=== PATIENT | female | born 1945 | race Caucasian/White ===

== ENCOUNTER 2016-06-27 08:50 | Outpatient (RCR) | payer MEDICARE, OTHER ==
--- OUTSIDE RECORDS SUMMARY | 2016-04-04 08:40 | XMS REPORT | Continuity of Care Document ---
Author Author [facility] Organization [facility] Address Unknown Phone Unavailable Care Team Providers Care Html Web Developer Name Role Phone HAYDEN MAQRUEZ MD PCP Insurance Providers Payer Name Policy Number Subscriber Name Relationship [employer] [id number] Ant Mcbride 18 Self / Same As Patient [facility] [id number] Ruchi Mcbride Thelma 18 Self / Same As Patient Advance Directives Directive Response Recorded Date/Time Advance Directives No 12/26/15 12:54pm Health Care Power of Elevators Inspector No 12/26/15 12:54pm Organ Donor Yes 12/26/15 12:54pm Resuscitation Status Full Code 12/26/15 12:54pm Problems No problem information available. Medications Current Home Medications Medication Dose Units Route Directions Days/Qty Instructions Start Date Bisoprolol Fumarate/Hctz 1 Each 1 Each Oral Daily 12/22/15 Calcium Carbonate/Vitamin D3 1 Each 1 Each Oral Twice A Day 12/22/15 Cholecalciferol (Vitamin D3) 2,000 Unit 2,000 Unit Oral Daily Lutein 20 Mg 20 Mg Oral Daily 12/22/15 Aspirin 81 Mg 81 Mg Oral Daily 12/22/15 Hydrocodone/Acetaminophen 1 Each 1-2 Each Oral Every 4HRS as needed for Pain 12/23/15 Social History Social History Problem Response Recorded Date/Time Alcohol Use Denies Use 12/26/2015 12:56pm Recreational Drug Use No 12/26/2015 12:56pm Recent Foreign Travel No 12/26/2015 12:56pm Recent Infectious Disease Exposure No 12/26/2015 12:56pm Hospitalization with Isolation Denies 12/26/2015 12:56pm Smoking Status Never a Smoker 12/26/2015 12:54pm Query Response Start Date Stop Date Smoking Status Never a Smoker Hospital Discharge Instructions No hospital discharge instructions. Plan of Care Discharge Date 12/26/15 4:04pm Prescriptions See Medication Section Functional Status No functional status results. Allergies, Adverse Reactions, Alerts No known allergies. Immunizations Name Given Type Date of Pneumonia Vaccine 12/25/12 Historical Vital Signs Acute Vital Signs Vital Response Date/Time Temperature (Fahrenheit) 97.8 degrees F (97.6 - 99.5) 12/23/2015 6:25pm Temperature (Calculated Celsius) 36.90073 degrees C (36.4 - 37.5) 12/23/2015 6:25pm Temperature Source Temporal 12/23/2015 6:25pm Pulse Rate (adult) 50 bpm (60 - 90) 12/23/2015 6:25pm Respiratory Rate 16 bpm (12 - 24) 12/23/2015 6:25pm O2 Sat by Pulse Oximetry 100 % (88 - 100) 12/23/2015 6:25pm Blood Pressure 124/68 mm Hg 12/23/2015 6:25pm Blood Pressure Mean 86 mm Hg 12/23/2015 6:25pm Pain Pain Intensity 0 12/23/2015 6:25pm Height (Feet) 5 feet 12/23/2015 10:05am Height (Inches) 5.00 inches 12/23/2015 10:05am Height (Calculated Centimeters) 165.462710 cm 12/23/2015 10:05am Weight (Pounds) 150 pounds 12/23/2015 10:05am Weight (Ounces) 0.0 oz 12/23/2015 10:05am Weight (Calculated Grams) 68560.856 gm 12/23/2015 10:05am Weight (Calculated Kilograms) 68.783753 kilograms 12/23/2015 10:05am Calculated BMI 25.0 12/23/2015 10:05am Results Pending Laboratory Results Test Name Collection Date/Time Procedures Procedure Status Date Provider(s) Tracing only of electrocardiogram Completed 12/23/15 HAYDEN MARQUEZ MD Encounters Encounter Location Arrival/Admit Date Discharge/Depart Date Attending Provider Departed Clinic [facility] 12/26/15 12:42pm 12/26/15 4: 04pm ALEX CALDERON MD Departed [facility] 12/23/15 9:43am 6:35pm HAYDEN MARQUEZ MD Departed Clinic [facility] 12/22/15 2:27pm 12/22/15 3: 39pm HAYDEN MARQUEZ MD Registered Clinic [facility] 12/22/15 12:03pm HAYDEN MARQUEZ MD
[2016-04-04 08:59] LABS: BASOPHILS # (AUTO) 0.1 10^3/uL (0.0-0.1); BASOPHILS % (AUTO) 1 % (0-10); EOSINOPHILS # (AUTO) 0.1 10^3/uL (0.0-0.3); EOSINOPHILS % (AUTO) 2 % (0-10); LYMPHOCYTES # (AUTO) 2.1 X 10^3 (1.0-4.0); LYMPHOCYTES % (AUTO) 35 % (12-44); MEAN CORPUSCULAR HEMOGLOBIN 25 PG (25-34); MEAN CORPUSCULAR HGB CONC 31 G/DL (32-36); MEAN CORPUSCULAR VOLUME 82 FL (80-99); MEAN PLATELET VOLUME 9.9 FL (7.4-10.4); MONOCYTES # (AUTO) 0.8 X 10^3 (0.0-1.0); MONOCYTES % (AUTO) 13 % (0-12); NEUTROPHILS % (AUTO) 50 % (42-75); PLATELET COUNT 286 10^3/uL (130-400); RED BLOOD COUNT 4.37 10^6/uL (4.35-5.85); RED CELL DISTRIBUTION WIDTH 28.7 % (10.0-14.5)
[2016-04-04 09:20] LABS: ANION GAP 13 MMOL/L (5-14); BLOOD UREA NITROGEN 9 MG/DL (7-18); BUN/CREATININE RATIO 12; CALCIUM 9.4 MG/DL (8.5-10.1); CARBON DIOXIDE 21 MMOL/L (21-32); CHLORIDE 108 MMOL/L (98-107); CREATININE SERUM 0.75 MG/DL (0.60-1.30); GFR ESTIMATED > 60; GLUCOSE 103 MG/DL (70-105); POTASSIUM 3.8 MMOL/L (3.6-5.0); SODIUM 142 MMOL/L (135-145)
[2016-04-11 11:08] LABS: BASOPHILS # (AUTO) 0.1 10^3/uL (0.0-0.1); BASOPHILS % (AUTO) 1 % (0-10); EOSINOPHILS # (AUTO) 0.1 10^3/uL (0.0-0.3); EOSINOPHILS % (AUTO) 1 % (0-10); LYMPHOCYTES # (AUTO) 2.7 X 10^3 (1.0-4.0); LYMPHOCYTES % (AUTO) 49 % (12-44); MEAN CORPUSCULAR HEMOGLOBIN 26 PG (25-34); MEAN CORPUSCULAR HGB CONC 32 G/DL (32-36); MEAN CORPUSCULAR VOLUME 83 FL (80-99); MEAN PLATELET VOLUME 11.3 FL (7.4-10.4); MONOCYTES # (AUTO) 0.4 X 10^3 (0.0-1.0); MONOCYTES % (AUTO) 7 % (0-12); NEUTROPHILS # (AUTO) 2.3 X 10^3 (1.8-7.8); NEUTROPHILS % (AUTO) 42 % (42-75); PLATELET COUNT 183 10^3/uL (130-400); RED BLOOD COUNT 4.46 10^6/uL (4.35-5.85); RED CELL DISTRIBUTION WIDTH 27.3 % (10.0-14.5); WHITE BLOOD COUNT 5.4 10^3/uL (4.3-11.0)
[2016-04-11 11:29] LABS: ANION GAP 11 MMOL/L (5-14); BLOOD UREA NITROGEN 14 MG/DL (7-18); BUN/CREATININE RATIO 17; CALCIUM 9.5 MG/DL (8.5-10.1); CARBON DIOXIDE 19 MMOL/L (21-32); CHLORIDE 110 MMOL/L (98-107); CREATININE SERUM 0.82 MG/DL (0.60-1.30); GFR ESTIMATED > 60; GLUCOSE 99 MG/DL (70-105); MAGNESIUM 2.3 MG/DL (1.8-2.4); POTASSIUM 4.2 MMOL/L (3.6-5.0); SODIUM 140 MMOL/L (135-145)
[2016-04-18 09:25] LABS: BASOPHILS % (AUTO) 1 % (0-10); EOSINOPHILS # (AUTO) 0.1 10^3/uL (0.0-0.3); EOSINOPHILS % (AUTO) 3 % (0-10); LYMPHOCYTES # (AUTO) 1.7 X 10^3 (1.0-4.0); LYMPHOCYTES % (AUTO) 43 % (12-44); MEAN CORPUSCULAR HEMOGLOBIN 27 PG (25-34); MEAN CORPUSCULAR HGB CONC 32 G/DL (32-36); MEAN CORPUSCULAR VOLUME 84 FL (80-99); MEAN PLATELET VOLUME 10.6 FL (7.4-10.4); MONOCYTES # (AUTO) 0.6 X 10^3 (0.0-1.0); MONOCYTES % (AUTO) 16 % (0-12); NEUTROPHILS # (AUTO) 1.4 X 10^3 (1.8-7.8); NEUTROPHILS % (AUTO) 37 % (42-75); PLATELET COUNT 104 10^3/uL (130-400); RED BLOOD COUNT 4.36 10^6/uL (4.35-5.85); RED CELL DISTRIBUTION WIDTH 28.3 % (10.0-14.5); WHITE BLOOD COUNT 3.8 10^3/uL (4.3-11.0)
[2016-04-18 09:50] LABS: ALANINE AMINOTRANSFERASE 15 U/L (0-55); ALBUMIN 3.6 G/DL (3.2-4.5); ANION GAP 5 MMOL/L (5-14); ASPARTATE AMINO TRANSFERASE 24 U/L (5-34); BILIRUBIN,TOTAL 0.3 MG/DL (0.1-1.0); BLOOD UREA NITROGEN 10 MG/DL (7-18); BUN/CREATININE RATIO 13; CALCIUM 9.1 MG/DL (8.5-10.1); CARBON DIOXIDE 26 MMOL/L (21-32); CHLORIDE 110 MMOL/L (98-107); CREATININE SERUM 0.75 MG/DL (0.60-1.30); GFR ESTIMATED > 60; GLUCOSE 109 MG/DL (70-105); MAGNESIUM 2.2 MG/DL (1.8-2.4); SODIUM 141 MMOL/L (135-145); TOTAL PROTEIN 6.6 G/DL (6.4-8.2)
[2016-04-25 10:41] LABS: BASOPHILS % (AUTO) 0 % (0-10); EOSINOPHILS % (AUTO) 0 % (0-10); LYMPHOCYTES # (AUTO) 2.5 X 10^3 (1.0-4.0); LYMPHOCYTES % (AUTO) 26 % (12-44); MEAN CORPUSCULAR HEMOGLOBIN 27 PG (25-34); MEAN CORPUSCULAR HGB CONC 32 G/DL (32-36); MEAN CORPUSCULAR VOLUME 85 FL (80-99); MEAN PLATELET VOLUME 10.5 FL (7.4-10.4); MONOCYTES # (AUTO) 0.9 X 10^3 (0.0-1.0); MONOCYTES % (AUTO) 9 % (0-12); NEUTROPHILS # (AUTO) 6.1 X 10^3 (1.8-7.8); NEUTROPHILS % (AUTO) 64 % (42-75); RED BLOOD COUNT 4.76 10^6/uL (4.35-5.85); RED CELL DISTRIBUTION WIDTH 26.9 % (10.0-14.5); WHITE BLOOD COUNT 9.5 10^3/uL (4.3-11.0)
[2016-04-25 10:47] LABS: PLATELET COUNT 85 10^3/uL (130-400)
[2016-04-25 11:18] LABS: ANION GAP 9 MMOL/L (5-14); BLOOD UREA NITROGEN 11 MG/DL (7-18); BUN/CREATININE RATIO 14; CALCIUM 9.9 MG/DL (8.5-10.1); CARBON DIOXIDE 24 MMOL/L (21-32); CHLORIDE 104 MMOL/L (98-107); CREATININE SERUM 0.78 MG/DL (0.60-1.30); GFR ESTIMATED > 60; GLUCOSE 104 MG/DL (70-105); MAGNESIUM 1.9 MG/DL (1.8-2.4); POTASSIUM 4.5 MMOL/L (3.6-5.0); SODIUM 137 MMOL/L (135-145)
[2016-05-02 08:56] LABS: BASOPHILS # (AUTO) 0.1 10^3/uL (0.0-0.1); BASOPHILS % (AUTO) 2 % (0-10); EOSINOPHILS % (AUTO) 2 % (0-10); LYMPHOCYTES # (AUTO) 1.4 X 10^3 (1.0-4.0); LYMPHOCYTES % (AUTO) 60 % (12-44); MEAN CORPUSCULAR HEMOGLOBIN 28 PG (25-34); MEAN CORPUSCULAR HGB CONC 33 G/DL (32-36); MEAN CORPUSCULAR VOLUME 87 FL (80-99); MEAN PLATELET VOLUME 9.5 FL (7.4-10.4); MONOCYTES # (AUTO) 0.5 X 10^3 (0.0-1.0); MONOCYTES % (AUTO) 20 % (0-12); NEUTROPHILS # (AUTO) 0.4 X 10^3 (1.8-7.8); NEUTROPHILS % (AUTO) 17 % (42-75); PLATELET COUNT 104 10^3/uL (130-400); RED BLOOD COUNT 4.16 10^6/uL (4.35-5.85); RED CELL DISTRIBUTION WIDTH 24.8 % (10.0-14.5); WHITE BLOOD COUNT 2.4 10^3/uL (4.3-11.0)
[2016-05-02 09:24] LABS: ALANINE AMINOTRANSFERASE 16 U/L (0-55); ALBUMIN 3.4 G/DL (3.2-4.5); ANION GAP 7 MMOL/L (5-14); ASPARTATE AMINO TRANSFERASE 20 U/L (5-34); BILIRUBIN,TOTAL 0.2 MG/DL (0.1-1.0); BLOOD UREA NITROGEN 8 MG/DL (7-18); BUN/CREATININE RATIO 11; CARBON DIOXIDE 26 MMOL/L (21-32); CHLORIDE 110 MMOL/L (98-107); CREATININE SERUM 0.76 MG/DL (0.60-1.30); GFR ESTIMATED > 60; GLUCOSE 106 MG/DL (70-105); MAGNESIUM 1.8 MG/DL (1.8-2.4); POTASSIUM 3.5 MMOL/L (3.6-5.0); SODIUM 143 MMOL/L (135-145); TOTAL PROTEIN 6.6 G/DL (6.4-8.2)
[2016-05-08 13:01] LABS: RED BLOOD COUNT 4.28 10^6/uL (4.35-5.85); WHITE BLOOD COUNT 4.2 10^3/uL (4.3-11.0)
[2016-05-08 13:02] LABS: BASOPHILS % (AUTO) 1 % (0-10); EOSINOPHILS # (AUTO) 0.1 10^3/uL (0.0-0.3); EOSINOPHILS % (AUTO) 2 % (0-10); LYMPHOCYTES # (AUTO) 2.3 X 10^3 (1.0-4.0); LYMPHOCYTES % (AUTO) 55 % (12-44); MEAN CORPUSCULAR HEMOGLOBIN 29 PG (25-34); MEAN CORPUSCULAR HGB CONC 33 G/DL (32-36); MEAN CORPUSCULAR VOLUME 89 FL (80-99); MONOCYTES # (AUTO) 0.6 X 10^3 (0.0-1.0); MONOCYTES % (AUTO) 14 % (0-12); NEUTROPHILS # (AUTO) 1.2 X 10^3 (1.8-7.8); NEUTROPHILS % (AUTO) 29 % (42-75); PLATELET COUNT 139 10^3/uL (130-400); RED CELL DISTRIBUTION WIDTH 25.4 % (10.0-14.5)
[2016-05-08 13:29] LABS: ANION GAP 10 MMOL/L (5-14); BLOOD UREA NITROGEN 9 MG/DL (7-18); BUN/CREATININE RATIO 11; CALCIUM 9.7 MG/DL (8.5-10.1); CARBON DIOXIDE 25 MMOL/L (21-32); CHLORIDE 107 MMOL/L (98-107); CREATININE SERUM 0.81 MG/DL (0.60-1.30); GFR ESTIMATED > 60; GLUCOSE 95 MG/DL (70-105); MAGNESIUM 2.2 MG/DL (1.8-2.4); POTASSIUM 3.8 MMOL/L (3.6-5.0); SODIUM 142 MMOL/L (135-145)
[2016-05-16 09:25] LABS: BASOPHILS # (AUTO) 0.1 10^3/uL (0.0-0.1); BASOPHILS % (AUTO) 1 % (0-10); EOSINOPHILS # (AUTO) 0.1 10^3/uL (0.0-0.3); EOSINOPHILS % (AUTO) 1 % (0-10); LYMPHOCYTES # (AUTO) 1.8 X 10^3 (1.0-4.0); LYMPHOCYTES % (AUTO) 42 % (12-44); MEAN CORPUSCULAR HEMOGLOBIN 30 PG (25-34); MEAN CORPUSCULAR HGB CONC 33 G/DL (32-36); MEAN CORPUSCULAR VOLUME 91 FL (80-99); MEAN PLATELET VOLUME 10.6 FL (7.4-10.4); MONOCYTES # (AUTO) 0.7 X 10^3 (0.0-1.0); MONOCYTES % (AUTO) 16 % (0-12); NEUTROPHILS # (AUTO) 1.7 X 10^3 (1.8-7.8); NEUTROPHILS % (AUTO) 40 % (42-75); PLATELET COUNT 123 10^3/uL (130-400); RED CELL DISTRIBUTION WIDTH 24.9 % (10.0-14.5); WHITE BLOOD COUNT 4.2 10^3/uL (4.3-11.0)
[2016-05-16 09:52] LABS: ALANINE AMINOTRANSFERASE 14 U/L (0-55); ALBUMIN 3.5 G/DL (3.2-4.5); ANION GAP 8 MMOL/L (5-14); ASPARTATE AMINO TRANSFERASE 23 U/L (5-34); BILIRUBIN,TOTAL 0.4 MG/DL (0.1-1.0); BLOOD UREA NITROGEN 11 MG/DL (7-18); BUN/CREATININE RATIO 15; CALCIUM 9.3 MG/DL (8.5-10.1); CARBON DIOXIDE 23 MMOL/L (21-32); CHLORIDE 110 MMOL/L (98-107); CREATININE SERUM 0.74 MG/DL (0.60-1.30); GFR ESTIMATED > 60; GLUCOSE 93 MG/DL (70-105); MAGNESIUM 2.1 MG/DL (1.8-2.4); POTASSIUM 4.2 MMOL/L (3.6-5.0); SODIUM 141 MMOL/L (135-145); TOTAL PROTEIN 6.3 G/DL (6.4-8.2)
[2016-05-23 11:48] LABS: BASOPHILS % (AUTO) 1 % (0-10); EOSINOPHILS # (AUTO) 0.1 10^3/uL (0.0-0.3); EOSINOPHILS % (AUTO) 2 % (0-10); LYMPHOCYTES # (AUTO) 2.5 X 10^3 (1.0-4.0); LYMPHOCYTES % (AUTO) 48 % (12-44); MEAN CORPUSCULAR HEMOGLOBIN 29 PG (25-34); MEAN CORPUSCULAR HGB CONC 32 G/DL (32-36); MEAN CORPUSCULAR VOLUME 91 FL (80-99); MEAN PLATELET VOLUME 10.8 FL (7.4-10.4); MONOCYTES # (AUTO) 0.5 X 10^3 (0.0-1.0); MONOCYTES % (AUTO) 10 % (0-12); NEUTROPHILS # (AUTO) 2.1 X 10^3 (1.8-7.8); NEUTROPHILS % (AUTO) 40 % (42-75); PLATELET COUNT 125 10^3/uL (130-400); RED BLOOD COUNT 4.37 10^6/uL (4.35-5.85); RED CELL DISTRIBUTION WIDTH 22.7 % (10.0-14.5); WHITE BLOOD COUNT 5.2 10^3/uL (4.3-11.0)
[2016-05-23 12:15] LABS: ANION GAP 8 MMOL/L (5-14); BLOOD UREA NITROGEN 13 MG/DL (7-18); BUN/CREATININE RATIO 16; CALCIUM 10.4 MG/DL (8.5-10.1); CARBON DIOXIDE 23 MMOL/L (21-32); CHLORIDE 107 MMOL/L (98-107); GFR ESTIMATED > 60; GLUCOSE 85 MG/DL (70-105); MAGNESIUM 2.1 MG/DL (1.8-2.4); POTASSIUM 4.6 MMOL/L (3.6-5.0); SODIUM 138 MMOL/L (135-145)
[2016-05-30 10:28] LABS: BASOPHILS # (AUTO) 0.1 10^3/uL (0.0-0.1); BASOPHILS % (AUTO) 1 % (0-10); EOSINOPHILS # (AUTO) 0.1 10^3/uL (0.0-0.3); EOSINOPHILS % (AUTO) 3 % (0-10); LYMPHOCYTES # (AUTO) 1.6 X 10^3 (1.0-4.0); LYMPHOCYTES % (AUTO) 46 % (12-44); MEAN CORPUSCULAR HEMOGLOBIN 30 PG (25-34); MEAN CORPUSCULAR HGB CONC 32 G/DL (32-36); MEAN CORPUSCULAR VOLUME 92 FL (80-99); MEAN PLATELET VOLUME 10.5 FL (7.4-10.4); MONOCYTES # (AUTO) 0.7 X 10^3 (0.0-1.0); MONOCYTES % (AUTO) 20 % (0-12); NEUTROPHILS # (AUTO) 1.1 X 10^3 (1.8-7.8); NEUTROPHILS % (AUTO) 30 % (42-75); PLATELET COUNT 112 10^3/uL (130-400); RED BLOOD COUNT 4.23 10^6/uL (4.35-5.85); RED CELL DISTRIBUTION WIDTH 21.9 % (10.0-14.5); WHITE BLOOD COUNT 3.5 10^3/uL (4.3-11.0)
[2016-05-30 10:57] LABS: ALANINE AMINOTRANSFERASE 12 U/L (0-55); ALBUMIN 3.7 G/DL (3.2-4.5); ANION GAP 8 MMOL/L (5-14); ASPARTATE AMINO TRANSFERASE 25 U/L (5-34); BILIRUBIN,TOTAL 0.3 MG/DL (0.1-1.0); BLOOD UREA NITROGEN 10 MG/DL (7-18); BUN/CREATININE RATIO 13; CALCIUM 9.3 MG/DL (8.5-10.1); CARBON DIOXIDE 22 MMOL/L (21-32); CHLORIDE 112 MMOL/L (98-107); CREATININE SERUM 0.78 MG/DL (0.60-1.30); GFR ESTIMATED > 60; GLUCOSE 97 MG/DL (70-105); MAGNESIUM 2.2 MG/DL (1.8-2.4); POTASSIUM 4.1 MMOL/L (3.6-5.0); SODIUM 142 MMOL/L (135-145); TOTAL PROTEIN 6.5 G/DL (6.4-8.2)
[2016-06-06 09:00] LABS: BASOPHILS # (AUTO) 0.1 10^3/uL (0.0-0.1); BASOPHILS % (AUTO) 1 % (0-10); EOSINOPHILS # (AUTO) 0.1 10^3/uL (0.0-0.3); EOSINOPHILS % (AUTO) 2 % (0-10); LYMPHOCYTES # (AUTO) 1.8 X 10^3 (1.0-4.0); LYMPHOCYTES % (AUTO) 41 % (12-44); MEAN CORPUSCULAR HEMOGLOBIN 31 PG (25-34); MEAN CORPUSCULAR HGB CONC 33 G/DL (32-36); MEAN CORPUSCULAR VOLUME 94 FL (80-99); MEAN PLATELET VOLUME 11.5 FL (7.4-10.4); MONOCYTES # (AUTO) 0.8 X 10^3 (0.0-1.0); MONOCYTES % (AUTO) 19 % (0-12); NEUTROPHILS # (AUTO) 1.6 X 10^3 (1.8-7.8); NEUTROPHILS % (AUTO) 37 % (42-75); PLATELET COUNT 151 10^3/uL (130-400); RED BLOOD COUNT 4.29 10^6/uL (4.35-5.85); RED CELL DISTRIBUTION WIDTH 20.8 % (10.0-14.5); WHITE BLOOD COUNT 4.3 10^3/uL (4.3-11.0)
[2016-06-06 09:19] LABS: ANION GAP 6 MMOL/L (5-14); BLOOD UREA NITROGEN 12 MG/DL (7-18); BUN/CREATININE RATIO 16; CALCIUM 9.4 MG/DL (8.5-10.1); CARBON DIOXIDE 24 MMOL/L (21-32); CHLORIDE 111 MMOL/L (98-107); CREATININE SERUM 0.74 MG/DL (0.60-1.30); GFR ESTIMATED > 60; GLUCOSE 76 MG/DL (70-105); MAGNESIUM 2.1 MG/DL (1.8-2.4); SODIUM 141 MMOL/L (135-145)
[2016-06-13 11:43] LABS: BASOPHILS % (AUTO) 1 % (0-10); EOSINOPHILS # (AUTO) 0.1 10^3/uL (0.0-0.3); EOSINOPHILS % (AUTO) 2 % (0-10); LYMPHOCYTES % (AUTO) 45 % (12-44); MEAN CORPUSCULAR HEMOGLOBIN 31 PG (25-34); MEAN CORPUSCULAR HGB CONC 33 G/DL (32-36); MEAN CORPUSCULAR VOLUME 96 FL (80-99); MEAN PLATELET VOLUME 11.7 FL (7.4-10.4); MONOCYTES # (AUTO) 0.5 X 10^3 (0.0-1.0); MONOCYTES % (AUTO) 12 % (0-12); NEUTROPHILS # (AUTO) 1.8 X 10^3 (1.8-7.8); NEUTROPHILS % (AUTO) 40 % (42-75); PLATELET COUNT 106 10^3/uL (130-400); RED BLOOD COUNT 4.31 10^6/uL (4.35-5.85); RED CELL DISTRIBUTION WIDTH 18.7 % (10.0-14.5); WHITE BLOOD COUNT 4.4 10^3/uL (4.3-11.0)
[2016-06-13 12:13] LABS: ANION GAP 8 MMOL/L (5-14); BLOOD UREA NITROGEN 11 MG/DL (7-18); BUN/CREATININE RATIO 14; CALCIUM 9.2 MG/DL (8.5-10.1); CARBON DIOXIDE 24 MMOL/L (21-32); CHLORIDE 107 MMOL/L (98-107); CREATININE SERUM 0.76 MG/DL (0.60-1.30); GFR ESTIMATED > 60; GLUCOSE 82 MG/DL (70-105); MAGNESIUM 2.1 MG/DL (1.8-2.4); POTASSIUM 4.1 MMOL/L (3.6-5.0); SODIUM 139 MMOL/L (135-145)
[2016-06-19 10:11] LABS: BASOPHILS # (AUTO) 0.1 10^3/uL (0.0-0.1); BASOPHILS % (AUTO) 1 % (0-10); EOSINOPHILS # (AUTO) 0.1 10^3/uL (0.0-0.3); EOSINOPHILS % (AUTO) 1 % (0-10); LYMPHOCYTES # (AUTO) 2.1 X 10^3 (1.0-4.0); LYMPHOCYTES % (AUTO) 40 % (12-44); MEAN CORPUSCULAR HEMOGLOBIN 32 PG (25-34); MEAN CORPUSCULAR HGB CONC 33 G/DL (32-36); MEAN CORPUSCULAR VOLUME 95 FL (80-99); MONOCYTES # (AUTO) 0.8 X 10^3 (0.0-1.0); MONOCYTES % (AUTO) 16 % (0-12); NEUTROPHILS # (AUTO) 2.1 X 10^3 (1.8-7.8); NEUTROPHILS % (AUTO) 41 % (42-75); PLATELET COUNT 94 10^3/uL (130-400); RED BLOOD COUNT 4.26 10^6/uL (4.35-5.85); RED CELL DISTRIBUTION WIDTH 18.3 % (10.0-14.5); WHITE BLOOD COUNT 5.1 10^3/uL (4.3-11.0)
[2016-06-19 10:36] LABS: ALANINE AMINOTRANSFERASE 16 U/L (0-55); ALBUMIN 3.9 G/DL (3.2-4.5); ANION GAP 7 MMOL/L (5-14); ASPARTATE AMINO TRANSFERASE 31 U/L (5-34); BILIRUBIN,TOTAL 0.5 MG/DL (0.1-1.0); BLOOD UREA NITROGEN 13 MG/DL (7-18); BUN/CREATININE RATIO 15; CALCIUM 9.3 MG/DL (8.5-10.1); CARBON DIOXIDE 23 MMOL/L (21-32); CHLORIDE 111 MMOL/L (98-107); CREATININE SERUM 0.85 MG/DL (0.60-1.30); GFR ESTIMATED > 60; GLUCOSE 102 MG/DL (70-105); MAGNESIUM 2.4 MG/DL (1.8-2.4); POTASSIUM 4.3 MMOL/L (3.6-5.0); SODIUM 141 MMOL/L (135-145)
[~2016-06-27] VITALS: Ht 165.1 cm; Wt 64.4 kg
[~2016-06-27 08:50] MED LIST: APIX5TAB PO; ASPI-586 PO; BISO1TAB3 PO; CALC-902 PO; CHOL200025 PO; D5W 500 ML IV (CANCER CTR) 500 ML IV SCH; D5W IV SCH; DILT240C90 PO; FAMOTIDINE 20MG/2ML IV (CANCER CTR) IV SCH; FERR-74 PO; FERRIC CARBOXYMALTOSE (CANCER) 750 MG in NS (IVPB) CANCER CENTER 250 ML IV SCH; FLUOROURACIL 600 MG in SYRINGE-IVPB 1 SYRINGE IV SCH; FLUOROURACIL IV SCH; FOSAPREPITANT 150 MG/NS 150 MG IVPB (CANCER CTR) IV PRN; HYDR-3812 PO; LEUCOVORIN CALCIUM 600 MG in D5W 250 ML IVPB (CANCER CTR) 250 ML IV SCH; LEUCOVORIN CALCIUM IV SCH; LORazepam 0.5 MG (ATIVAN) TABLET CANCER CTR PO PRN; LUTE20TA PO; METO-333 PO; METO50TA2 PO; ONDA8TAB6 PO; ONDANSETRON 16 MG, DEXAMETHASONE 10 MG/NS 50 ML IVPB IV SCH; ONDN4T PO; OXALIPLATIN 100 MG in D5W 250 ML IVPB (CANCER CTR) 250 ML IV SCH; OXALIPLATIN 100 MG, OXALIPLATIN (GENERIC) 20 MG in D5W 250 ML IVPB (CANCER CTR) 250 ML IV SCH; OXALIPLATIN 100 MG, OXALIPLATIN (GENERIC) 30 MG in D5W 250 ML IVPB (CANCER CTR) 250 ML IV SCH; OXYC-197 PO; TRAM50TA2 PO; [UNRECOGNIZED DRUG - OTHER] IV SCH; diphenhydrAMINE 25 MG TAB (BENADRYL) CANCER CENTER PO SCH
[2016-06-27 09:25] LABS: BASOPHILS % (AUTO) 1 % (0-10); EOSINOPHILS # (AUTO) 0.1 10^3/uL (0.0-0.3); EOSINOPHILS % (AUTO) 4 % (0-10); LYMPHOCYTES # (AUTO) 1.5 X 10^3 (1.0-4.0); LYMPHOCYTES % (AUTO) 44 % (12-44); MEAN CORPUSCULAR HEMOGLOBIN 32 PG (25-34); MEAN CORPUSCULAR HGB CONC 33 G/DL (32-36); MEAN CORPUSCULAR VOLUME 97 FL (80-99); MEAN PLATELET VOLUME 10.2 FL (7.4-10.4); MONOCYTES # (AUTO) 0.5 X 10^3 (0.0-1.0); MONOCYTES % (AUTO) 14 % (0-12); NEUTROPHILS # (AUTO) 1.4 X 10^3 (1.8-7.8); NEUTROPHILS % (AUTO) 38 % (42-75); PLATELET COUNT 89 10^3/uL (130-400); RED BLOOD COUNT 4.11 10^6/uL (4.35-5.85); RED CELL DISTRIBUTION WIDTH 16.3 % (10.0-14.5); WHITE BLOOD COUNT 3.5 10^3/uL (4.3-11.0)
[2016-06-27 10:29] LABS: ANION GAP 10 MMOL/L (5-14); BLOOD UREA NITROGEN 17 MG/DL (7-18); BUN/CREATININE RATIO 20; CALCIUM 9.2 MG/DL (8.5-10.1); CARBON DIOXIDE 21 MMOL/L (21-32); CHLORIDE 109 MMOL/L (98-107); CREATININE SERUM 0.83 MG/DL (0.60-1.30); GFR ESTIMATED > 60; GLUCOSE 99 MG/DL (70-105); MAGNESIUM 2.1 MG/DL (1.8-2.4); POTASSIUM 3.9 MMOL/L (3.6-5.0); SODIUM 140 MMOL/L (135-145)
== END 2016-07-03 | disposition home or self-care (01) ==
LOC: ONC 08:50
PROVIDERS: ATTEND Internal Medicine Hematology & Oncology
DX: Z51.11 Encounter for antineoplastic chemotherapy (principal); C18.2 Malignant neoplasm of ascending colon; C77.2 Secondary and unspecified malignant neoplasm of intra-abdominal lymph nodes; I10 Essential (primary) hypertension; I48.0 Paroxysmal atrial fibrillation; D50.9 Iron deficiency anemia, unspecified; Z79.899 Other long term (current) drug therapy
CPT/HCPCS: 36415; 36591; 80048; 80053; 83735; 85025; 96367; 96368; 96375; 96411; 96413; 96415; 96521; 99213

== ENCOUNTER → 2016-08-21 | Outpatient (CLI) | payer MEDICARE, OTHER ==
[~2016-08-21] MED LIST changes: -D5W 500 ML IV (CANCER CTR) 500 ML IV SCH; -D5W IV SCH; -FAMOTIDINE 20MG/2ML IV (CANCER CTR) IV SCH; -FERRIC CARBOXYMALTOSE (CANCER) 750 MG in NS (IVPB) CANCER CENTER 250 ML IV SCH; -FLUOROURACIL 600 MG in SYRINGE-IVPB 1 SYRINGE IV SCH; -FLUOROURACIL IV SCH; -FOSAPREPITANT 150 MG/NS 150 MG IVPB (CANCER CTR) IV PRN; -LEUCOVORIN CALCIUM 600 MG in D5W 250 ML IVPB (CANCER CTR) 250 ML IV SCH; -LEUCOVORIN CALCIUM IV SCH; -LORazepam 0.5 MG (ATIVAN) TABLET CANCER CTR PO PRN; -ONDANSETRON 16 MG, DEXAMETHASONE 10 MG/NS 50 ML IVPB IV SCH; -OXALIPLATIN 100 MG in D5W 250 ML IVPB (CANCER CTR) 250 ML IV SCH; -OXALIPLATIN 100 MG, OXALIPLATIN (GENERIC) 20 MG in D5W 250 ML IVPB (CANCER CTR) 250 ML IV SCH; -OXALIPLATIN 100 MG, OXALIPLATIN (GENERIC) 30 MG in D5W 250 ML IVPB (CANCER CTR) 250 ML IV SCH; -[UNRECOGNIZED DRUG - OTHER] IV SCH; -diphenhydrAMINE 25 MG TAB (BENADRYL) CANCER CENTER PO SCH
--- OUTSIDE RECORDS SUMMARY | 2016-08-21 13:35 | XMS REPORT | Continuity of Care Document ---
Author Author [facility] Organization [facility] Address Unknown Phone Unavailable Care Team Providers Care Control Clerk Head Name Role Phone HAYDEN MARQUEZ MD PCP Insurance Providers Payer Name Policy Number Subscriber Name Relationship [employer] [id number] Ant Mcbride 18 Self / Same As Patient [facility] [id number] Ruchi Mcbride Thelma 18 Self / Same As Patient Advance Directives Directive Response Recorded Date/Time Advance Directives No 12/26/15 12:54pm Health Care Power of Streetsweeper Operator No 12/26/15 12:54pm Organ Donor Yes 12/26/15 [...] - 99.5) 12/23/2015 6:25pm Temperature (Calculated Celsius) 36.16336 degrees C (36.4 - 37.5) 12/23/2015 6:25pm [...] 5.00 inches 12/23/2015 10:05am Height (Calculated Centimeters) 165.239905 cm 12/23/2015 10:05am Weight (Pounds) 150 pounds 12/23/2015 10:05am Weight (Ounces) 0.0 oz 12/23/2015 10:05am Weight (Calculated Grams) 70748.856 gm 12/23/2015 10:05am Weight (Calculated Kilograms) 68.650502 kilograms 12/23/2015 10:05am Calculated BMI 25.0 12/23/2015 10:05am Results Pending Laboratory Results Test Name Collection Date/Time Procedures Procedure Status Date Provider(s) Tracing only of electrocardiogram Completed 12/23/15 HAYDEN MARQUEZ MD Encounters Encounter Location Arrival/Admit Date Discharge/Depart Date Attending Provider Departed Clinic [facility] 12/26/15 12:42pm 12/26/15 4: 04pm ALEX CALDERON MD Departed Surgical Day [facility] 12/23/15 9:43am 6:35pm HAYDNE MARQUEZ MD Departed Clinic [facility] 12/22/15 2:27pm 12/22/15 3: 39pm HAYDEN MARQUEZ MD Registered Clinic [facility] 12/22/15 12:03pm HAYDEN MARQUEZ MD
== END ==
LOC: RAD 12:03
PROVIDERS: ATTEND Nurse Practitioner Family
DX: I73.9 Peripheral vascular disease, unspecified (principal); I48.0 Paroxysmal atrial fibrillation; Z79.01 Long term (current) use of anticoagulants
CPT/HCPCS: 93923

== ENCOUNTER 2016-09-19 14:05 | Outpatient (RCR) | payer MEDICARE, OTHER ==
--- OUTSIDE RECORDS SUMMARY | 2016-07-04 09:55 | XMS REPORT | Continuity of Care Document ---
Author Author [facility] Organization [facility] Address Unknown Phone Unavailable Care Team Providers Care Abrasive Band Winder Name Role Phone HAYDEN MARQUEZ MD PCP Insurance Providers Payer Name Policy Number Subscriber Name Relationship [employer] [id number] Ant Mcbride 18 Self / Same As Patient [facility] [id number] Ruchi Mcbride Thelma 17 Self / Same As Patient Advance Directives Directive Response Recorded Date/Time Advance Directives No 12/26/15 12:54pm Health Care Power of Area Field Manager No 12/26/15 12:54pm Organ Donor Yes 12/26/15 [...] - 99.5) 12/23/2015 6:25pm Temperature (Calculated Celsius) 36.17188 degrees C (36.4 - 37.5) 12/23/2015 6:25pm [...] 5.00 inches 12/23/2015 10:05am Height (Calculated Centimeters) 165.238300 cm 12/23/2015 10:05am Weight (Pounds) 150 pounds 12/23/2015 10:05am Weight (Ounces) 0.0 oz 12/23/2015 10:05am Weight (Calculated Grams) 41021.856 gm 12/23/2015 10:05am Weight (Calculated Kilograms) 68.873984 kilograms 12/23/2015 10:05am Calculated BMI 25.0 12/23/2015 10:05am Results Pending Laboratory Results Test Name Collection Date/Time Procedures Procedure Status Date Provider(s) Tracing only of electrocardiogram Completed 12/23/15 HAYDEN MARQUEZ MD Encounters Encounter Location Arrival/Admit Date Discharge/Depart Date Attending Provider Departed Clinic [facility] 12/26/15 12:42pm 12/26/15 4: 04pm ALEX CALDERON MD Departed [facility] Day Care [facility] 12/23/15 9:43am 6:35pm HAYDEN MARQUEZ MD Departed Clinic [facility] 12/22/15 2:27pm 12/22/15 3: 39pm HAYDEN MARQUEZ MD Registered Clinic [facility] 12/22/15 12:03pm HAYDEN MARQUEZ MD
[2016-07-04 10:05] LABS: BASOPHILS % (AUTO) 1 % (0-10); EOSINOPHILS # (AUTO) 0.1 10^3/uL (0.0-0.3); EOSINOPHILS % (AUTO) 2 % (0-10); LYMPHOCYTES # (AUTO) 1.5 X 10^3 (1.0-4.0); LYMPHOCYTES % (AUTO) 41 % (12-44); MEAN CORPUSCULAR HEMOGLOBIN 32 PG (25-34); MEAN CORPUSCULAR HGB CONC 33 G/DL (32-36); MEAN CORPUSCULAR VOLUME 97 FL (80-99); MEAN PLATELET VOLUME 10.9 FL (7.4-10.4); MONOCYTES # (AUTO) 0.8 X 10^3 (0.0-1.0); MONOCYTES % (AUTO) 22 % (0-12); NEUTROPHILS # (AUTO) 1.3 X 10^3 (1.8-7.8); NEUTROPHILS % (AUTO) 35 % (42-75); PLATELET COUNT 84 10^3/uL (130-400); RED CELL DISTRIBUTION WIDTH 15.9 % (10.0-14.5); WHITE BLOOD COUNT 3.8 10^3/uL (4.3-11.0)
[2016-07-04 10:30] LABS: ALANINE AMINOTRANSFERASE 15 U/L (0-55); ALBUMIN 3.7 G/DL (3.2-4.5); ANION GAP 8 MMOL/L (5-14); ASPARTATE AMINO TRANSFERASE 26 U/L (5-34); BILIRUBIN,TOTAL 0.4 MG/DL (0.1-1.0); BLOOD UREA NITROGEN 11 MG/DL (7-18); BUN/CREATININE RATIO 14; CALCIUM 9.4 MG/DL (8.5-10.1); CARBON DIOXIDE 23 MMOL/L (21-32); CHLORIDE 110 MMOL/L (98-107); GFR ESTIMATED > 60; GLUCOSE 96 MG/DL (70-105); MAGNESIUM 2.1 MG/DL (1.8-2.4); POTASSIUM 4.1 MMOL/L (3.6-5.0); SODIUM 141 MMOL/L (135-145); TOTAL PROTEIN 6.7 G/DL (6.4-8.2)
[2016-07-11 09:18] LABS: BASOPHILS # (AUTO) 0.1 10^3/uL (0.0-0.1); BASOPHILS % (AUTO) 1 % (0-10); EOSINOPHILS # (AUTO) 0.1 10^3/uL (0.0-0.3); EOSINOPHILS % (AUTO) 2 % (0-10); LYMPHOCYTES # (AUTO) 1.8 X 10^3 (1.0-4.0); LYMPHOCYTES % (AUTO) 39 % (12-44); MEAN CORPUSCULAR HEMOGLOBIN 33 PG (25-34); MEAN CORPUSCULAR HGB CONC 33 G/DL (32-36); MEAN CORPUSCULAR VOLUME 98 FL (80-99); MEAN PLATELET VOLUME 11.1 FL (7.4-10.4); MONOCYTES # (AUTO) 0.8 X 10^3 (0.0-1.0); MONOCYTES % (AUTO) 19 % (0-12); NEUTROPHILS # (AUTO) 1.8 X 10^3 (1.8-7.8); NEUTROPHILS % (AUTO) 39 % (42-75); PLATELET COUNT 105 10^3/uL (130-400); RED BLOOD COUNT 4.02 10^6/uL (4.35-5.85); RED CELL DISTRIBUTION WIDTH 15.4 % (10.0-14.5); WHITE BLOOD COUNT 4.5 10^3/uL (4.3-11.0)
[2016-07-11 09:49] LABS: ANION GAP 7 MMOL/L (5-14); BLOOD UREA NITROGEN 14 MG/DL (7-18); BUN/CREATININE RATIO 18; CALCIUM 9.3 MG/DL (8.5-10.1); CARBON DIOXIDE 24 MMOL/L (21-32); CHLORIDE 110 MMOL/L (98-107); GFR ESTIMATED > 60; GLUCOSE 104 MG/DL (70-105); MAGNESIUM 2.2 MG/DL (1.8-2.4); SODIUM 141 MMOL/L (135-145)
[2016-07-18 10:46] LABS: BASOPHILS % (AUTO) 1 % (0-10); EOSINOPHILS # (AUTO) 0.1 10^3/uL (0.0-0.3); EOSINOPHILS % (AUTO) 1 % (0-10); LYMPHOCYTES # (AUTO) 2.3 X 10^3 (1.0-4.0); LYMPHOCYTES % (AUTO) 43 % (12-44); MEAN CORPUSCULAR HGB CONC 33 G/DL (32-36); MEAN CORPUSCULAR VOLUME 99 FL (80-99); MEAN PLATELET VOLUME 11.1 FL (7.4-10.4); MONOCYTES # (AUTO) 0.6 X 10^3 (0.0-1.0); MONOCYTES % (AUTO) 12 % (0-12); NEUTROPHILS # (AUTO) 2.3 X 10^3 (1.8-7.8); NEUTROPHILS % (AUTO) 44 % (42-75); PLATELET COUNT 105 10^3/uL (130-400); RED BLOOD COUNT 4.34 10^6/uL (4.35-5.85); RED CELL DISTRIBUTION WIDTH 14.7 % (10.0-14.5); WHITE BLOOD COUNT 5.3 10^3/uL (4.3-11.0)
[2016-07-18 10:47] LABS: MEAN CORPUSCULAR HEMOGLOBIN 32 PG (25-34)
[2016-07-18 11:19] LABS: ANION GAP 9 MMOL/L (5-14); BLOOD UREA NITROGEN 14 MG/DL (7-18); BUN/CREATININE RATIO 17; CALCIUM 9.8 MG/DL (8.5-10.1); CARBON DIOXIDE 25 MMOL/L (21-32); CHLORIDE 109 MMOL/L (98-107); CREATININE SERUM 0.83 MG/DL (0.60-1.30); GFR ESTIMATED > 60; GLUCOSE 93 MG/DL (70-105); MAGNESIUM 2.1 MG/DL (1.8-2.4); SODIUM 143 MMOL/L (135-145)
[2016-07-25 11:48] LABS: BASOPHILS % (AUTO) 1 % (0-10); EOSINOPHILS # (AUTO) 0.1 10^3/uL (0.0-0.3); EOSINOPHILS % (AUTO) 2 % (0-10); LYMPHOCYTES # (AUTO) 2.1 X 10^3 (1.0-4.0); LYMPHOCYTES % (AUTO) 42 % (12-44); MEAN CORPUSCULAR HEMOGLOBIN 33 PG (25-34); MEAN CORPUSCULAR HGB CONC 33 G/DL (32-36); MEAN CORPUSCULAR VOLUME 99 FL (80-99); MEAN PLATELET VOLUME 10.7 FL (7.4-10.4); MONOCYTES # (AUTO) 0.7 X 10^3 (0.0-1.0); MONOCYTES % (AUTO) 15 % (0-12); NEUTROPHILS # (AUTO) 2.1 X 10^3 (1.8-7.8); NEUTROPHILS % (AUTO) 41 % (42-75); PLATELET COUNT 107 10^3/uL (130-400); RED BLOOD COUNT 4.06 10^6/uL (4.35-5.85); RED CELL DISTRIBUTION WIDTH 14.6 % (10.0-14.5); WHITE BLOOD COUNT 5.1 10^3/uL (4.3-11.0)
[2016-07-25 12:13] LABS: ALANINE AMINOTRANSFERASE 16 U/L (0-55); ALBUMIN 3.7 G/DL (3.2-4.5); ANION GAP 7 MMOL/L (5-14); ASPARTATE AMINO TRANSFERASE 22 U/L (5-34); BILIRUBIN,TOTAL 0.4 MG/DL (0.1-1.0); BLOOD UREA NITROGEN 13 MG/DL (7-18); BUN/CREATININE RATIO 16; CALCIUM 9.5 MG/DL (8.5-10.1); CARBON DIOXIDE 24 MMOL/L (21-32); CHLORIDE 109 MMOL/L (98-107); CREATININE SERUM 0.81 MG/DL (0.60-1.30); GFR ESTIMATED > 60; GLUCOSE 81 MG/DL (70-105); MAGNESIUM 2.2 MG/DL (1.8-2.4); POTASSIUM 4.4 MMOL/L (3.6-5.0); SODIUM 140 MMOL/L (135-145); TOTAL PROTEIN 6.5 G/DL (6.4-8.2)
[2016-08-01 10:24] LABS: BASOPHILS % (AUTO) 1 % (0-10); EOSINOPHILS # (AUTO) 0.1 10^3/uL (0.0-0.3); EOSINOPHILS % (AUTO) 2 % (0-10); LYMPHOCYTES # (AUTO) 1.9 X 10^3 (1.0-4.0); LYMPHOCYTES % (AUTO) 44 % (12-44); MEAN CORPUSCULAR HEMOGLOBIN 33 PG (25-34); MEAN CORPUSCULAR HGB CONC 33 G/DL (32-36); MEAN CORPUSCULAR VOLUME 98 FL (80-99); MEAN PLATELET VOLUME 10.8 FL (7.4-10.4); MONOCYTES # (AUTO) 0.6 X 10^3 (0.0-1.0); MONOCYTES % (AUTO) 13 % (0-12); NEUTROPHILS # (AUTO) 1.7 X 10^3 (1.8-7.8); NEUTROPHILS % (AUTO) 39 % (42-75); PLATELET COUNT 129 10^3/uL (130-400); RED BLOOD COUNT 4.22 10^6/uL (4.35-5.85); RED CELL DISTRIBUTION WIDTH 14.1 % (10.0-14.5); WHITE BLOOD COUNT 4.4 10^3/uL (4.3-11.0)
[2016-08-01 11:16] LABS: ANION GAP 9 MMOL/L (5-14); BLOOD UREA NITROGEN 13 MG/DL (7-18); BUN/CREATININE RATIO 15; CALCIUM 9.6 MG/DL (8.5-10.1); CARBON DIOXIDE 27 MMOL/L (21-32); CHLORIDE 106 MMOL/L (98-107); CREATININE SERUM 0.87 MG/DL (0.60-1.30); GFR ESTIMATED > 60; GLUCOSE 83 MG/DL (70-105); MAGNESIUM 2.1 MG/DL (1.8-2.4); SODIUM 142 MMOL/L (135-145)
[2016-08-08 11:16] LABS: BASOPHILS # (AUTO) 0.1 10^3/uL (0.0-0.1); BASOPHILS % (AUTO) 1 % (0-10); EOSINOPHILS # (AUTO) 0.1 10^3/uL (0.0-0.3); EOSINOPHILS % (AUTO) 2 % (0-10); LYMPHOCYTES # (AUTO) 2.2 X 10^3 (1.0-4.0); LYMPHOCYTES % (AUTO) 46 % (12-44); MEAN CORPUSCULAR HEMOGLOBIN 33 PG (25-34); MEAN CORPUSCULAR HGB CONC 33 G/DL (32-36); MEAN CORPUSCULAR VOLUME 98 FL (80-99); MEAN PLATELET VOLUME 10.7 FL (7.4-10.4); MONOCYTES # (AUTO) 0.7 X 10^3 (0.0-1.0); MONOCYTES % (AUTO) 15 % (0-12); NEUTROPHILS # (AUTO) 1.7 X 10^3 (1.8-7.8); NEUTROPHILS % (AUTO) 37 % (42-75); PLATELET COUNT 106 10^3/uL (130-400); RED BLOOD COUNT 4.05 10^6/uL (4.35-5.85); RED CELL DISTRIBUTION WIDTH 14.6 % (10.0-14.5); WHITE BLOOD COUNT 4.7 10^3/uL (4.3-11.0)
[2016-08-08 11:46] LABS: ALANINE AMINOTRANSFERASE 13 U/L (0-55); ALBUMIN 3.8 G/DL (3.2-4.5); ANION GAP 8 MMOL/L (5-14); ASPARTATE AMINO TRANSFERASE 23 U/L (5-34); BILIRUBIN,TOTAL 0.5 MG/DL (0.1-1.0); BLOOD UREA NITROGEN 14 MG/DL (7-18); BUN/CREATININE RATIO 17; CALCIUM 9.2 MG/DL (8.5-10.1); CARBON DIOXIDE 24 MMOL/L (21-32); CHLORIDE 111 MMOL/L (98-107); CREATININE SERUM 0.83 MG/DL (0.60-1.30); GFR ESTIMATED > 60; GLUCOSE 87 MG/DL (70-105); MAGNESIUM 2.3 MG/DL (1.8-2.4); POTASSIUM 4.4 MMOL/L (3.6-5.0); SODIUM 143 MMOL/L (135-145); TOTAL PROTEIN 6.7 G/DL (6.4-8.2)
[2016-08-15 10:05] LABS: BASOPHILS % (AUTO) 1 % (0-10); EOSINOPHILS # (AUTO) 0.1 10^3/uL (0.0-0.3); EOSINOPHILS % (AUTO) 2 % (0-10); LYMPHOCYTES # (AUTO) 1.7 X 10^3 (1.0-4.0); LYMPHOCYTES % (AUTO) 41 % (12-44); MEAN CORPUSCULAR HEMOGLOBIN 33 PG (25-34); MEAN CORPUSCULAR HGB CONC 33 G/DL (32-36); MEAN CORPUSCULAR VOLUME 99 FL (80-99); MEAN PLATELET VOLUME 10.7 FL (7.4-10.4); MONOCYTES # (AUTO) 0.5 X 10^3 (0.0-1.0); MONOCYTES % (AUTO) 12 % (0-12); NEUTROPHILS # (AUTO) 1.9 X 10^3 (1.8-7.8); NEUTROPHILS % (AUTO) 45 % (42-75); PLATELET COUNT 125 10^3/uL (130-400); RED BLOOD COUNT 4.37 10^6/uL (4.35-5.85); RED CELL DISTRIBUTION WIDTH 14.3 % (10.0-14.5); WHITE BLOOD COUNT 4.2 10^3/uL (4.3-11.0)
[2016-08-15 10:20] LABS: ANION GAP 7 MMOL/L (5-14); BLOOD UREA NITROGEN 14 MG/DL (7-18); BUN/CREATININE RATIO 16; CALCIUM 9.6 MG/DL (8.5-10.1); CARBON DIOXIDE 26 MMOL/L (21-32); CHLORIDE 109 MMOL/L (98-107); CREATININE SERUM 0.87 MG/DL (0.60-1.30); GFR ESTIMATED > 60; GLUCOSE 83 MG/DL (70-105); MAGNESIUM 2.1 MG/DL (1.8-2.4); SODIUM 142 MMOL/L (135-145)
[2016-08-22 10:02] LABS: BASOPHILS % (AUTO) 1 % (0-10); EOSINOPHILS # (AUTO) 0.1 10^3/uL (0.0-0.3); EOSINOPHILS % (AUTO) 2 % (0-10); LYMPHOCYTES # (AUTO) 1.8 X 10^3 (1.0-4.0); LYMPHOCYTES % (AUTO) 40 % (12-44); MEAN CORPUSCULAR HEMOGLOBIN 33 PG (25-34); MEAN CORPUSCULAR HGB CONC 33 G/DL (32-36); MEAN CORPUSCULAR VOLUME 98 FL (80-99); MEAN PLATELET VOLUME 10.8 FL (7.4-10.4); MONOCYTES # (AUTO) 0.7 X 10^3 (0.0-1.0); MONOCYTES % (AUTO) 16 % (0-12); NEUTROPHILS # (AUTO) 1.8 X 10^3 (1.8-7.8); NEUTROPHILS % (AUTO) 41 % (42-75); PLATELET COUNT 110 10^3/uL (130-400); RED BLOOD COUNT 4.14 10^6/uL (4.35-5.85); RED CELL DISTRIBUTION WIDTH 14.8 % (10.0-14.5); WHITE BLOOD COUNT 4.4 10^3/uL (4.3-11.0)
[2016-08-22 10:25] LABS: ALANINE AMINOTRANSFERASE 13 U/L (0-55); ALBUMIN 3.9 G/DL (3.2-4.5); ANION GAP 8 MMOL/L (5-14); ASPARTATE AMINO TRANSFERASE 22 U/L (5-34); BILIRUBIN,TOTAL 0.5 MG/DL (0.1-1.0); BLOOD UREA NITROGEN 12 MG/DL (7-18); BUN/CREATININE RATIO 14; CALCIUM 9.4 MG/DL (8.5-10.1); CARBON DIOXIDE 24 MMOL/L (21-32); CHLORIDE 110 MMOL/L (98-107); CREATININE SERUM 0.83 MG/DL (0.60-1.30); GFR ESTIMATED > 60; GLUCOSE 99 MG/DL (70-105); MAGNESIUM 2.4 MG/DL (1.8-2.4); POTASSIUM 4.3 MMOL/L (3.6-5.0); SODIUM 142 MMOL/L (135-145); TOTAL PROTEIN 6.7 G/DL (6.4-8.2)
[2016-08-29 11:33] LABS: BASOPHILS % (AUTO) 1 % (0-10); EOSINOPHILS # (AUTO) 0.1 10^3/uL (0.0-0.3); EOSINOPHILS % (AUTO) 3 % (0-10); LYMPHOCYTES # (AUTO) 2.3 X 10^3 (1.0-4.0); LYMPHOCYTES % (AUTO) 48 % (12-44); MEAN CORPUSCULAR HEMOGLOBIN 34 PG (25-34); MEAN CORPUSCULAR HGB CONC 34 G/DL (32-36); MEAN CORPUSCULAR VOLUME 99 FL (80-99); MEAN PLATELET VOLUME 10.8 FL (7.4-10.4); MONOCYTES # (AUTO) 0.7 X 10^3 (0.0-1.0); MONOCYTES % (AUTO) 14 % (0-12); NEUTROPHILS # (AUTO) 1.7 X 10^3 (1.8-7.8); NEUTROPHILS % (AUTO) 35 % (42-75); PLATELET COUNT 141 10^3/uL (130-400); RED BLOOD COUNT 4.09 10^6/uL (4.35-5.85); RED CELL DISTRIBUTION WIDTH 14.7 % (10.0-14.5); WHITE BLOOD COUNT 4.8 10^3/uL (4.3-11.0)
[2016-08-29 12:17] LABS: ANION GAP 10 MMOL/L (5-14); BLOOD UREA NITROGEN 14 MG/DL (7-18); BUN/CREATININE RATIO 16; CALCIUM 9.5 MG/DL (8.5-10.1); CARBON DIOXIDE 24 MMOL/L (21-32); CHLORIDE 108 MMOL/L (98-107); CREATININE SERUM 0.88 MG/DL (0.60-1.30); GFR ESTIMATED > 60; GLUCOSE 94 MG/DL (70-105); MAGNESIUM 2.2 MG/DL (1.8-2.4); POTASSIUM 4.4 MMOL/L (3.6-5.0); SODIUM 142 MMOL/L (135-145)
[2016-09-05 13:43] LABS: BASOPHILS # (AUTO) 0.1 10^3/uL (0.0-0.1); BASOPHILS % (AUTO) 1 % (0-10); EOSINOPHILS # (AUTO) 0.2 10^3/uL (0.0-0.3); EOSINOPHILS % (AUTO) 3 % (0-10); LYMPHOCYTES # (AUTO) 2.5 X 10^3 (1.0-4.0); LYMPHOCYTES % (AUTO) 46 % (12-44); MEAN CORPUSCULAR HEMOGLOBIN 33 PG (25-34); MEAN CORPUSCULAR HGB CONC 34 G/DL (32-36); MEAN CORPUSCULAR VOLUME 98 FL (80-99); MEAN PLATELET VOLUME 10.6 FL (7.4-10.4); MONOCYTES # (AUTO) 0.7 X 10^3 (0.0-1.0); MONOCYTES % (AUTO) 13 % (0-12); NEUTROPHILS % (AUTO) 38 % (42-75); PLATELET COUNT 128 10^3/uL (130-400); RED BLOOD COUNT 4.11 10^6/uL (4.35-5.85); RED CELL DISTRIBUTION WIDTH 14.9 % (10.0-14.5); WHITE BLOOD COUNT 5.4 10^3/uL (4.3-11.0)
[2016-09-05 14:17] LABS: CALCIUM 9.7 MG/DL (8.5-10.1); CREATININE SERUM 1.04 MG/DL (0.60-1.30); MAGNESIUM 2.1 MG/DL (1.8-2.4); POTASSIUM 4.5 MMOL/L (3.6-5.0)
[2016-09-12 10:23] LABS: BASOPHILS # (AUTO) 0.1 10^3/uL (0.0-0.1); BASOPHILS % (AUTO) 1 % (0-10); EOSINOPHILS # (AUTO) 0.1 10^3/uL (0.0-0.3); EOSINOPHILS % (AUTO) 2 % (0-10); LYMPHOCYTES # (AUTO) 2.2 X 10^3 (1.0-4.0); LYMPHOCYTES % (AUTO) 41 % (12-44); MEAN CORPUSCULAR HEMOGLOBIN 32 PG (25-34); MEAN CORPUSCULAR HGB CONC 33 G/DL (32-36); MEAN CORPUSCULAR VOLUME 99 FL (80-99); MEAN PLATELET VOLUME 10.9 FL (7.4-10.4); MONOCYTES # (AUTO) 0.7 X 10^3 (0.0-1.0); MONOCYTES % (AUTO) 14 % (0-12); NEUTROPHILS # (AUTO) 2.2 X 10^3 (1.8-7.8); NEUTROPHILS % (AUTO) 41 % (42-75); PLATELET COUNT 158 10^3/uL (130-400); RED BLOOD COUNT 4.41 10^6/uL (4.35-5.85); RED CELL DISTRIBUTION WIDTH 14.8 % (10.0-14.5); WHITE BLOOD COUNT 5.2 10^3/uL (4.3-11.0)
[2016-09-12 10:57] LABS: CALCIUM 9.8 MG/DL (8.5-10.1); CREATININE SERUM 0.96 MG/DL (0.60-1.30); MAGNESIUM 2.1 MG/DL (1.8-2.4); POTASSIUM 4.2 MMOL/L (3.6-5.0)
[~2016-09-19] VITALS: Ht 165.1 cm; Wt 68.9 kg
[~2016-09-19 14:05] MED LIST changes: +D5W 500 ML IV (CANCER CTR) 500 ML IV SCH; +FAMOTIDINE 20MG/2ML IV (CANCER CTR) IV SCH; +FERRIC CARBOXYMALTOSE (CANCER) 750 MG in NS (IVPB) CANCER CENTER 250 ML IV SCH; +FLUOROURACIL 600 MG in SYRINGE-IVPB 1 SYRINGE IV SCH; +FOSAPREPITANT 150 MG/NS 150 MG IVPB (CANCER CTR) IV PRN; +LEUCOVORIN CALCIUM 600 MG in D5W 250 ML IVPB (CANCER CTR) 250 ML IV SCH; +ONDANSETRON 16 MG, DEXAMETHASONE 10 MG/NS 50 ML IVPB IV SCH; +OXALIPLATIN 100 MG in D5W 250 ML IVPB (CANCER CTR) 250 ML IV SCH; +diphenhydrAMINE 25 MG TAB (BENADRYL) CANCER CENTER PO SCH
[2016-09-19 14:44] LABS: BASOPHILS # (AUTO) 0.1 10^3/uL (0.0-0.1); BASOPHILS % (AUTO) 1 % (0-10); EOSINOPHILS # (AUTO) 0.1 10^3/uL (0.0-0.3); EOSINOPHILS % (AUTO) 2 % (0-10); LYMPHOCYTES # (AUTO) 2.6 X 10^3 (1.0-4.0); LYMPHOCYTES % (AUTO) 48 % (12-44); MEAN CORPUSCULAR HEMOGLOBIN 33 PG (25-34); MEAN CORPUSCULAR HGB CONC 34 G/DL (32-36); MEAN CORPUSCULAR VOLUME 98 FL (80-99); MEAN PLATELET VOLUME 10.8 FL (7.4-10.4); MONOCYTES # (AUTO) 0.8 X 10^3 (0.0-1.0); MONOCYTES % (AUTO) 14 % (0-12); NEUTROPHILS # (AUTO) 1.9 X 10^3 (1.8-7.8); NEUTROPHILS % (AUTO) 35 % (42-75); PLATELET COUNT 145 10^3/uL (130-400); RED BLOOD COUNT 4.04 10^6/uL (4.35-5.85); RED CELL DISTRIBUTION WIDTH 14.4 % (10.0-14.5); WHITE BLOOD COUNT 5.5 10^3/uL (4.3-11.0)
[2016-09-19 15:44] LABS: ALANINE AMINOTRANSFERASE 12 U/L (0-55); ALBUMIN 3.8 G/DL (3.2-4.5); ANION GAP 5 MMOL/L (5-14); ASPARTATE AMINO TRANSFERASE 22 U/L (5-34); BILIRUBIN,TOTAL 0.5 MG/DL (0.1-1.0); BLOOD UREA NITROGEN 13 MG/DL (7-18); BUN/CREATININE RATIO 15; CALCIUM 9.3 MG/DL (8.5-10.1); CARBON DIOXIDE 27 MMOL/L (21-32); CHLORIDE 110 MMOL/L (98-107); CREATININE SERUM 0.85 MG/DL (0.60-1.30); GFR ESTIMATED > 60; GLUCOSE 91 MG/DL (70-105); MAGNESIUM 2.2 MG/DL (1.8-2.4); POTASSIUM 4.1 MMOL/L (3.6-5.0); SODIUM 142 MMOL/L (135-145); TOTAL PROTEIN 6.6 G/DL (6.4-8.2)
== END 2016-10-02 | disposition home or self-care (01) ==
LOC: ONC 14:05
PROVIDERS: ATTEND Internal Medicine Hematology & Oncology
DX: Z51.11 Encounter for antineoplastic chemotherapy (principal); C18.2 Malignant neoplasm of ascending colon; C77.2 Secondary and unspecified malignant neoplasm of intra-abdominal lymph nodes; I10 Essential (primary) hypertension; I48.0 Paroxysmal atrial fibrillation; D50.9 Iron deficiency anemia, unspecified; Z79.899 Other long term (current) drug therapy
CPT/HCPCS: 36415; 36591; 80048; 80053; 82378; 83735; 85025; 96367; 96368; 96375; 96409; 96411; 96413; 96415; 96521; 99213

== ENCOUNTER → 2016-12-26 | Outpatient (CLI) | payer MEDICARE, OTHER ==
[~2016-12-26] MED LIST changes: +BARIUM SUSPENSION 2.1% (VANILLA SILQ) 450 ML PO ONE; +CATHETER FLUSH 10 ML SYR IV PRN; -D5W 500 ML IV (CANCER CTR) 500 ML IV SCH; -FAMOTIDINE 20MG/2ML IV (CANCER CTR) IV SCH; -FERRIC CARBOXYMALTOSE (CANCER) 750 MG in NS (IVPB) CANCER CENTER 250 ML IV SCH; -FLUOROURACIL 600 MG in SYRINGE-IVPB 1 SYRINGE IV SCH; -FOSAPREPITANT 150 MG/NS 150 MG IVPB (CANCER CTR) IV PRN; +IOHEXOL 350 MG/ML 100 ML (OMNIPAQUE 350) VIAL IV ONE; -LEUCOVORIN CALCIUM 600 MG in D5W 250 ML IVPB (CANCER CTR) 250 ML IV SCH; +NS 100 ML (IVPB) BAG IV ONE; -ONDANSETRON 16 MG, DEXAMETHASONE 10 MG/NS 50 ML IVPB IV SCH; -OXALIPLATIN 100 MG in D5W 250 ML IVPB (CANCER CTR) 250 ML IV SCH; -diphenhydrAMINE 25 MG TAB (BENADRYL) CANCER CENTER PO SCH
--- NOTE | 2016-12-26 13:32 | Diagnostic Imaging Report ---
PROCEDURE: CT chest, abdomen, and pelvis with contrast. TECHNIQUE: Multiple contiguous axial images were obtained through the chest, abdomen, and pelvis after the administration of intravenous contrast. INDICATION: Colon cancer. COMPARISON: Exam compared with chest CT 02/06/2016, abdominal and pelvic CT performed 12/22/2015. CHEST: Benign calcified granuloma in the left upper lobe is chronic. No noncalcified or suspicious chest nodule. There is trace left basilar atelectasis. No evidence for pneumonia or edema. No pleural or pericardial effusion. There is no axillary, hilar, or mediastinal adenopathy. The aorta is patent and nonaneurysmal. No acute or suspicious chest wall pathology. ABDOMEN AND PELVIS: There are postsurgical changes of interval right hemicolectomy. There were no findings suggestive of anastomotic leak or obstruction. The liver is unchanged. There are tiny low-density nodular foci in the left lobe anterolaterally measuring about 5 mm and in the right lobe measuring about 7 mm. These are too small to be characterized definitively as solid versus cystic. These are unchanged. No new liver mass. No bile duct dilatation. The spleen is negative. The adrenals are negative. The pancreas is unremarkable. Right lower quadrant mesenteric lymphadenopathy has resolved in the interim. No pathologically enlarged, morphologically distorted, or suspicious abdominal or pelvic mesenteric or retroperitoneal lymph nodes at this exam found. There is no ascites. There is no bowel, biliary, or urinary tract obstruction. Kidneys are negative. The aortoiliac vessels are patent and nonaneurysmal. There is no ascites. No suspicious osseous lesion. IMPRESSION: CHEST: No findings of thoracic metastases. ABDOMEN AND PELVIS: Unchanged subcentimeter low-density hepatic foci. No new or convincingly solid liver mass. Interval right hemicolectomy and resolution of right lower quadrant mesenteric adenopathy. No obstruction, fluid collection, inflammatory process, or adverse development. Dictated by: Dictated on workstation # [id number]
== END ==
LOC: RAD 09:51
PROVIDERS: ATTEND Internal Medicine Hematology & Oncology
DX: C18.2 Malignant neoplasm of ascending colon (principal); K76.9 Liver disease, unspecified; Z98.890 Other specified postprocedural states; Z90.49 Acquired absence of other specified parts of digestive tract
CPT/HCPCS: 71260; 74177

== ENCOUNTER 2017-01-02 12:40 | Outpatient (RCR) | payer MEDICARE, OTHER ==
[2016-12-12 10:18] LABS: BASOPHILS # (AUTO) 0.1 10^3/uL (0.0-0.1); BASOPHILS % (AUTO) 1 % (0-10); EOSINOPHILS # (AUTO) 0.1 10^3/uL (0.0-0.3); EOSINOPHILS % (AUTO) 2 % (0-10); LYMPHOCYTES # (AUTO) 2.6 X 10^3 (1.0-4.0); LYMPHOCYTES % (AUTO) 45 % (12-44); MEAN CORPUSCULAR HEMOGLOBIN 31 PG (25-34); MEAN CORPUSCULAR HGB CONC 33 G/DL (32-36); MEAN CORPUSCULAR VOLUME 93 FL (80-99); MEAN PLATELET VOLUME 11.1 FL (7.4-10.4); MONOCYTES # (AUTO) 0.7 X 10^3 (0.0-1.0); MONOCYTES % (AUTO) 12 % (0-12); NEUTROPHILS # (AUTO) 2.3 X 10^3 (1.8-7.8); NEUTROPHILS % (AUTO) 41 % (42-75); PLATELET COUNT 148 10^3/uL (130-400); RED BLOOD COUNT 4.59 10^6/uL (4.35-5.85); RED CELL DISTRIBUTION WIDTH 12.6 % (10.0-14.5); WHITE BLOOD COUNT 5.7 10^3/uL (4.3-11.0)
[2016-12-12 10:45] LABS: ALBUMIN 3.8 GM/DL (3.2-4.5); BILIRUBIN,TOTAL 0.5 MG/DL (0.1-1.0); CALCIUM 9.4 MG/DL (8.5-10.1); CREATININE SERUM 0.96 MG/DL (0.60-1.30); MAGNESIUM 2.2 MG/DL (1.8-2.4); POTASSIUM 4.1 MMOL/L (3.6-5.0); TOTAL PROTEIN 7.2 GM/DL (6.4-8.2)
[~2017-01-02 12:40] MED LIST changes: -BARIUM SUSPENSION 2.1% (VANILLA SILQ) 450 ML PO ONE; -CATHETER FLUSH 10 ML SYR IV PRN; -IOHEXOL 350 MG/ML 100 ML (OMNIPAQUE 350) VIAL IV ONE; -NS 100 ML (IVPB) BAG IV ONE
[2017-01-03] MEDS ORDERED: MULT1TAB69 PO (13:18)
[2017-01-03] MEDS ORDERED: APIX5TAB PO (13:18)
[2017-01-03] MEDS ORDERED: CETI10TA17 PO (13:18)
== END 2017-01-15 | disposition home or self-care (01) ==
LOC: ONC 12:40
PROVIDERS: ATTEND Internal Medicine Hematology & Oncology
DX: C18.2 Malignant neoplasm of ascending colon (principal); C77.2 Secondary and unspecified malignant neoplasm of intra-abdominal lymph nodes; I10 Essential (primary) hypertension; I48.0 Paroxysmal atrial fibrillation; D50.9 Iron deficiency anemia, unspecified; Z79.899 Other long term (current) drug therapy; Z45.2 Encounter for adjustment and management of vascular access device
CPT/HCPCS: 36591; 80053; 82378; 82728; 83540; 83735; 85025; 96523; 99213

== ENCOUNTER 2017-01-03 05:32 | Outpatient (CLI) | payer MEDICARE, OTHER ==
[~2017-01-03] VITALS: Ht 165.1 cm; Wt 72.6 kg
[2017-01-03] MEDS ORDERED: CETI10TA17 PO (13:18)
[2017-01-03] MEDS ORDERED: MULT1TAB69 PO (13:18)
[2017-01-03] MEDS ORDERED: APIX5TAB PO (13:18)
== END 2017-01-03 13:30 ==
LOC: PREOP 05:32
PROVIDERS: ATTEND Surgery
DX: Z01.818 Encounter for other preprocedural examination (principal); C18.2 Malignant neoplasm of ascending colon

== ENCOUNTER 2017-01-14 06:26 | Day surgery (SDC) | payer MEDICARE, OTHER ==
[~2017-01-14] VITALS: Ht 165.1 cm; Wt 72.6 kg
[~2017-01-14 06:26] MED LIST changes: +CETI10TA17 PO; +MULT1TAB69 PO
[2017-01-14] MEDS ORDERED: NS IV 500 ML 500 ML IV SCH (07:00)
[2017-01-14 07:26] VITALS: BP 143/73
[2017-01-14] MEDS ORDERED: fentaNYL INJECTION 100 MCG/2 ML AMP ONE (08:07)
[2017-01-14] MEDS ORDERED: MIDAZOLAM 2 MG/2 ML (VERSED) VIAL ONE ×3 (08:07)
--- NOTE | 2017-01-14 08:09 | History & Physicial ---
History of Present Illness History of Present Illness Reason for visit/HPI to undergo surveillance colonoscopy. 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 Date of Admission Date Seen by Provider: Jan 14, 2017 Time Seen by Provider: 08:07 I consulted on this patient on 01/14/17 08:06 Attending Physician Alex Calderon MD Admitting Physician Aaron Osman MD Consult Allergies and Home Medications Allergies Coded Allergies: tramadol (Verified Allergy, Intermediate, RASH, 01/31/16) Home Medications Apixaban 5 Mg Tablet, 5 MG PO BID, (Reported) Calcium Carbonate/Vitamin D3 1 Each Tablet, 1 TAB PO DAILY, (Reported) Cetirizine HCl 10 Mg Tablet, 10 MG PO DAILY, (Reported) Lutein 20 Mg Tablet, 20 MG PO DAILY, (Reported) Metoprolol Tartrate 50 Mg Tablet, 50 MG PO BID, (Reported) Multivitamin 1 Each Tablet, 1 EACH PO DAILY, (Reported) Past Csxwsid-Arsrwj-Aoebtx Hx Patient Social History Marrital Status: Employed/Student: retired Alcohol Use: Denies Use Recreational Drug Use: No Smoking Status: Never a Smoker Recent Foreign Travel: No Contact w/other who traveled: No Immunizations Up To Date Tetanus Booster (TDap): Unknown Date of Pneumonia Vaccine: Dec 25, 2012 Surgeries HX Surgeries: Yes (COLECTOMY) Surgeries: Bowel Surgery Respiratory Hx Respiratory Disorders: No Cardiovascular Hx Cardiovascular Disorders: Yes Cardiac Disorders: Hypertension Neurological Hx Neurological Disorders: No Reproductive System Hx Reproductive Disorders: No Sexually Transmitted Disease: No HIV/AIDS: No Genitourinary Hx Genitourinary Disorders: No Gastrointestinal Hx Gastrointestinal Disorders: Yes (COLON MASS) Musculoskeletal Hx Musculoskeletal Disorders: Yes (GENERALIZED WEAKNESS) Musculoskeletal Disorders: Arthritis Endocrine Hx Endocrine Disorders: No HEENT HX ENT Disorders: No (GLASSES) Loss of Vision: Bilateral Hearing Impairment: Denies Cancer Hx Cancer: Yes Cancer: Colon Psychosocial Hx Psychiatric Problems: No Integumentary HX Skin/Integumentary Disorder: No Blood Transfusions Hx Blood Disorders: Yes (ANEMIA) Adverse Reaction to a Blood Tr: No (RECEIVED 2 UNITS PRBC ON 12/23/15) Family Medical History Family Hx: Alzheimer's disease G8 SISTER Arthritis 19 FATHER G8 BROTHER G8 SISTER Cardiovascular disease 19 FATHER G8 BROTHER FH: cancer 19 MOTHER (uterine) G8 SISTER (uterine and breast ca) Hypertension 19 FATHER G8 BROTHER Myocardial infarction Parkinson's disease G8 SISTER Constitutional: no symptoms reported EENTM: no symptoms reported Respiratory: no symptoms reported Cardiovascular: no symptoms reported Gastrointestinal: no symptoms reported Genitourinary: no symptoms reported Musculoskeletal: no symptoms reported, joint pain Skin: no symptoms reported Physical Exam Vital Signs Vital Sign - Last 12Hours 01/14/17 07:26 Temp 97.5 Pulse 59 Resp 18 B/P (MAP) 143/73 Pulse Ox 99 O2 Delivery Room Air Capillary Refill : General Appearance: No Apparent Distress HEENT: Normal ENT Inspection Neck: Normal Inspection Respiratory: Lungs Clear Cardiovascular: Regular Rate, Rhythm Gastrointestinal: Non Tender, Soft Rectal: Deferred Extremity: Normal Inspection Neurologic/Psychiatric: Alert, Oriented x3 Skin: Warm/Dry Assessment/Plan Assessment and Plan lady with a history of carcinoma of the cecum, resection a year ago.for surveillance colonoscopy Problems: ALEX CALDERON MD Jan 14, 2017 8:09 am
--- NOTE | 2017-01-14 08:10 | Conscious Sedation/ASA ---
Conscious Sedation Pre-Proced Time Reviewed: 08:10 ASA Class: 2 Airway Mallampati Classification: (kiana appropriate class) I. II. III, IV Lungs Heart ASA score ASA 1: a normal healthy patient ASA 2: a patient with a mild systemic disease (mid diabetes, controlled hypertension, obesity ASA 3: a patient with a severe systemic disease that limits activity (angina , COPD, prior Myocardial infarction) ASA 4: a patient with an incapacitating disease that is a constant threat to life (CHF, renal failure) ASA 5: a moribund patient not expected to survive 24 hrs. (ruptured aneurysm) ASA 6: a declared brain patient whose organs are being harvested. For emergent operations, add the letter E after the classification Grade 1 Sedation Plan: Discussed options with patient/fam Note The patient is an appropriate candidate to undergo the planned procedure, sedation, and anesthesia. The patient immediately re-assessed prior to indication. ALEX CALDERON MD Jan 14, 2017 8:10 am
[2017-01-14] MEDS: MIDAZOLAM 2 MG/2 ML (VERSED) VIAL IVP PRN ×3 (08:18→08:24)
[2017-01-14] MEDS: fentaNYL INJECTION 100 MCG/2 ML AMP IVP PRN ×2 (08:19→08:22)
--- NOTE | 2017-01-14 08:34 | Endo Procedure Record ---
Endo Procedure Report Date of Procedure Jan 14, 2017 Surgeon (s) ALEX CALDERON MD Post Procedure/Op Diagnosis sigmoid diverticulosis. Procedure Performed ccolonoscopy to ileocolic anastomosis Description of Procedure Anesthesia Type: Conscious Sedation Specimen(s) collected/removed none Description of the Procedure Indication for procedure; In November 2015, this lady underwent robotic-assisted right hemicolectomy to manage a carcinoma of the ascending colon. She has since completed adjuvant chemotherapy. She returns today for surveillance colonoscopy Informed consent was obtained after reviewing the procedure in detail Description of the procedure; she was placed in left lateral rectus position and her vital signs were monitored. Conscious sedation was achieved using Versed and fentanyl. Examination of the perianal area revealed skin tacks and external hemorrhoids. Digital examination was otherwise unremarkable. The colonoscope was then introduced into the rectum and advanced to the ileo- colic anastomosis. The scope was then withdrawn slowly and the mucosa examined in a systematic fashion. Findings; sigmoid diverticulosis. Patent anastomosis with no recurrent polyps sshe tolerated the procedure well and was taken back to the nursing area in a stable condition Impression previous carcinoma of the ascending colon. No recurrent polyps. Recommend surveillance examination in one year. Copies To: HAYDEN MARQUEZ MD Copies To: ANAT ASHBY MD, XAVIER M MD Jan 14, 2017 8:34 am
--- NOTE | 2017-01-14 08:35 | Discharge Inst-Simple/Standard ---
Discharge Inst-Standard Discharge Medications New, Converted or Re-Newed RX: Other Patient Instructions/Follow Up Plan of Care/Instructions/FU: repeat colonoscopy in one year Activity as Tolerated: Yes Discharge Diet: No Restrictions ALEX CALDERON MD Jan 14, 2017 8:35 am
[2017-01-14 08:45] VITALS: BP 110/64
[2017-01-14] MEDS ORDERED: HEParin (CENTRAL IV FLUSH) 500 UNIT/5 ML SYR IV ONE (08:45)
[2017-01-14 09:15] VITALS: BP 125/71
[2017-01-14 10:06] VITALS: BP 125/71
== END 2017-01-14 09:30 | disposition home or self-care (01) ==
LOC: ENDO 06:26
PROVIDERS: ATTEND Surgery
DX: Z08 Encounter for follow-up examination after completed treatment for malignant neoplasm (principal); K57.30 Diverticulosis of large intestine without perforation or abscess without bleeding; Z85.038 Personal history of other malignant neoplasm of large intestine; I10 Essential (primary) hypertension

== ENCOUNTER 2017-03-25 08:42 | Outpatient (RCR) | payer MEDICARE, OTHER ==
[2017-03-25 09:14] LABS: BASOPHILS # (AUTO) 0.1 10^3/uL (0.0-0.1); BASOPHILS % (AUTO) 2 % (0-10); EOSINOPHILS # (AUTO) 0.2 10^3/uL (0.0-0.3); EOSINOPHILS % (AUTO) 4 % (0-10); LYMPHOCYTES # (AUTO) 1.9 X 10^3 (1.0-4.0); LYMPHOCYTES % (AUTO) 35 % (12-44); MEAN CORPUSCULAR HEMOGLOBIN 30 PG (25-34); MEAN CORPUSCULAR HGB CONC 33 G/DL (32-36); MEAN CORPUSCULAR VOLUME 91 FL (80-99); MEAN PLATELET VOLUME 11.5 FL (7.4-10.4); MONOCYTES # (AUTO) 0.6 X 10^3 (0.0-1.0); MONOCYTES % (AUTO) 12 % (0-12); NEUTROPHILS # (AUTO) 2.5 X 10^3 (1.8-7.8); NEUTROPHILS % (AUTO) 48 % (42-75); PLATELET COUNT 175 10^3/uL (130-400); RED BLOOD COUNT 4.72 10^6/uL (4.35-5.85); RED CELL DISTRIBUTION WIDTH 14.4 % (10.0-14.5); WHITE BLOOD COUNT 5.3 10^3/uL (4.3-11.0)
[2017-03-25 09:36] LABS: BILIRUBIN,TOTAL 0.7 MG/DL (0.1-1.0); CALCIUM 9.8 MG/DL (8.5-10.1); CREATININE SERUM 0.97 MG/DL (0.60-1.30); MAGNESIUM 2.1 MG/DL (1.8-2.4); POTASSIUM 3.7 MMOL/L (3.6-5.0); TOTAL PROTEIN 7.4 GM/DL (6.4-8.2)
== END 2017-03-29 13:35 | disposition home or self-care (01) ==
LOC: ONC 08:42
PROVIDERS: ATTEND Internal Medicine Hematology & Oncology
DX: C18.2 Malignant neoplasm of ascending colon (principal); C77.2 Secondary and unspecified malignant neoplasm of intra-abdominal lymph nodes; I10 Essential (primary) hypertension; I48.0 Paroxysmal atrial fibrillation; D50.9 Iron deficiency anemia, unspecified; Z79.899 Other long term (current) drug therapy; Z45.2 Encounter for adjustment and management of vascular access device
CPT/HCPCS: 36591; 80053; 82378; 83735; 85025; 96523; 99213

== ENCOUNTER 2017-06-17 09:52 | Outpatient (RCR) | payer MEDICARE, OTHER ==
[~2017-06-17 09:52] MED LIST changes: +ACHD5005 PO; +FLU TRIvalent (5 YOA+) 2017-18 (AFLURIA) 0.5 ML IM ONE; -HYDR-3812 PO; +METO50TA15 PO; -METO50TA2 PO
[2017-06-17 10:13] LABS: BASOPHILS % (AUTO) 1 % (0-10); EOSINOPHILS # (AUTO) 0.1 10^3/uL (0.0-0.3); EOSINOPHILS % (AUTO) 2 % (0-10); HEMATOCRIT 44 % (35-52); HEMOGLOBIN 14.5 G/DL (11.5-16.0); LYMPHOCYTES # (AUTO) 2.3 X 10^3 (1.0-4.0); LYMPHOCYTES % (AUTO) 27 % (12-44); MEAN CORPUSCULAR HEMOGLOBIN 30 PG (25-34); MEAN CORPUSCULAR HGB CONC 33 G/DL (32-36); MEAN CORPUSCULAR VOLUME 90 FL (80-99); MEAN PLATELET VOLUME 11.6 FL (7.4-10.4); MONOCYTES # (AUTO) 0.6 X 10^3 (0.0-1.0); MONOCYTES % (AUTO) 7 % (0-12); NEUTROPHILS # (AUTO) 5.6 X 10^3 (1.8-7.8); NEUTROPHILS % (AUTO) 64 % (42-75); PLATELET COUNT 159 10^3/uL (130-400); RED BLOOD COUNT 4.85 10^6/uL (4.35-5.85); RED CELL DISTRIBUTION WIDTH 14.4 % (10.0-14.5); WHITE BLOOD COUNT 8.8 10^3/uL (4.3-11.0)
[2017-06-17 10:34] LABS: ALANINE AMINOTRANSFERASE 16 U/L (0-55); ALBUMIN 3.8 GM/DL (3.2-4.5); ALKALINE PHOSPHATASE 78 U/L (40-136); BILIRUBIN,TOTAL 0.5 MG/DL (0.1-1.0); BUN/CREATININE RATIO 20; CALCIUM 9.3 MG/DL (8.5-10.1); CARBON DIOXIDE 27 MMOL/L (21-32); CHLORIDE 108 MMOL/L (98-107); CREATININE SERUM 0.85 MG/DL (0.60-1.30); GFR ESTIMATED > 60; GLUCOSE 103 MG/DL (70-105); SODIUM 143 MMOL/L (135-145)
== END 2017-06-30 | disposition home or self-care (01) ==
LOC: ONC 09:52
PROVIDERS: ATTEND Internal Medicine Hematology & Oncology
DX: C18.2 Malignant neoplasm of ascending colon (principal); C77.2 Secondary and unspecified malignant neoplasm of intra-abdominal lymph nodes; I10 Essential (primary) hypertension; I48.0 Paroxysmal atrial fibrillation; D50.9 Iron deficiency anemia, unspecified; Z79.899 Other long term (current) drug therapy; Z45.2 Encounter for adjustment and management of vascular access device; Z90.49 Acquired absence of other specified parts of digestive tract; Z23 Encounter for immunization
CPT/HCPCS: 36591; 80053; 82378; 85025; 90471; 96523

== ENCOUNTER → 2017-06-20 | Outpatient (CLI) | payer MEDICARE, OTHER ==
[~2017-06-20] MED LIST changes: -ACHD5005 PO; -FLU TRIvalent (5 YOA+) 2017-18 (AFLURIA) 0.5 ML IM ONE; +HYDR-3812 PO
--- NOTE | 2017-06-21 09:47 | Diagnostic Imaging Report ---
Bilateral screening mammogram 2D views with tomosynthesis The current study was also evaluated with a Computer Aided Detection (CAD) system. Indication: Screening. No current complaints stated on the questionnaire. COMPARISON: 06/19/2016. Findings: The breasts are composed of dense parenchyma which may decrease mammographic sensitivity. There is no mass, infection is is suspicious cluster of calcification. Biopsy clips are seen in the medial aspect of the left breast. Allowing for technique and positional differences, no suspicious change is seen. IMPRESSION: No significant change. ACR BI-RADS Category 2: Benign findings. Result letter will be mailed to the patient. Note: At least 10% of breast cancer is not imaged by mammography. Dictated by: Dictated on workstation # [id number]
== END ==
LOC: RAD 09:48
PROVIDERS: ATTEND Internal Medicine
DX: Z12.31 Encounter for screening mammogram for malignant neoplasm of breast (principal)
CPT/HCPCS: 77067

== ENCOUNTER 2017-10-23 09:00 | Outpatient (RCR) | payer MEDICARE, OTHER ==
[2017-09-10 10:30] LABS: BASOPHILS # (AUTO) 0.1 10^3/uL (0.0-0.1); BASOPHILS % (AUTO) 1 % (0-10); EOSINOPHILS # (AUTO) 0.1 10^3/uL (0.0-0.3); EOSINOPHILS % (AUTO) 2 % (0-10); HEMATOCRIT 43 % (35-52); HEMOGLOBIN 14.3 G/DL (11.5-16.0); LYMPHOCYTES # (AUTO) 2.6 X 10^3 (1.0-4.0); LYMPHOCYTES % (AUTO) 40 % (12-44); MEAN CORPUSCULAR HEMOGLOBIN 30 PG (25-34); MEAN CORPUSCULAR HGB CONC 34 G/DL (32-36); MEAN CORPUSCULAR VOLUME 90 FL (80-99); MEAN PLATELET VOLUME 11.3 FL (7.4-10.4); MONOCYTES # (AUTO) 0.7 X 10^3 (0.0-1.0); MONOCYTES % (AUTO) 10 % (0-12); NEUTROPHILS % (AUTO) 47 % (42-75); PLATELET COUNT 183 10^3/uL (130-400); RED BLOOD COUNT 4.71 10^6/uL (4.35-5.85); RED CELL DISTRIBUTION WIDTH 14.5 % (10.0-14.5); WHITE BLOOD COUNT 6.5 10^3/uL (4.3-11.0)
[2017-09-10 10:56] LABS: ALBUMIN 3.9 GM/DL (3.2-4.5); BILIRUBIN,TOTAL 0.4 MG/DL (0.1-1.0); CALCIUM 9.6 MG/DL (8.5-10.1); POTASSIUM 3.9 MMOL/L (3.6-5.0)
[~2017-10-23 09:00] MED LIST changes: +ACHD5005 PO; -FERR-74 PO; +FERR325T18 PO; -HYDR-3812 PO
== END 2017-10-27 | disposition home or self-care (01) ==
LOC: ONC 09:00
PROVIDERS: ATTEND Internal Medicine Hematology & Oncology
DX: C18.2 Malignant neoplasm of ascending colon (principal); C77.2 Secondary and unspecified malignant neoplasm of intra-abdominal lymph nodes; I10 Essential (primary) hypertension; I48.0 Paroxysmal atrial fibrillation; Z79.899 Other long term (current) drug therapy; Z45.2 Encounter for adjustment and management of vascular access device
CPT/HCPCS: 80053; 82378; 85025; 96523

== ENCOUNTER → 2017-10-24 | Outpatient (CLI) | payer MEDICARE, OTHER ==
[~2017-10-24] VITALS: Ht 165.1 cm; Wt 80.7 kg
[~2017-10-24] MED LIST changes: +CATHETER FLUSH 10 ML SYR IV PRN; +REGADENOSON 0.4 MG/5 ML SYR (LEXISCAN) IV ONE
[2017-10-24 08:45] VITALS: BP 172/89
[2017-10-24 08:52] VITALS: BP 162/100
--- NOTE | 2017-10-24 17:46 | STRESS TEST ---
DATE OF SERVICE: 10/24/2017 RESTING AND POST REGADENOSON TECHNETIUM-99M TETROFOSMIN SPECT CT IMAGING ORDERING PHYSICIAN: Silvia Flaherty APRN OTHER PHYSICIAN: Dr. Vidal. CLINICAL DIAGNOSES: Paroxysmal atrial fibrillation, mitral regurgitation. Baseline images were carried out after injection of 10.56 mCi of technetium-99m Tetrofosmin. This was followed by 0.4 mg of regadenoson and 31.2 mCi of technetium-99m Tetrofosmin for stress imaging. The electrocardiogram showed sinus rhythm throughout the study. The electrocardiogram did not change significantly. She noted some stomach discomfort and a headache following regadenoson infusion, which resolved in a few minutes. Review of images at rest and following stress does not indicate any significant perfusion defects consistent with significant myocardial ischemia or infarction. Gated images show normal global left ventricular systolic function and normal regional wall motion. Left ventricular ejection fraction is calculated to be 71%. Left ventricular end diastolic volume is 31 mL. TID is absent (1.07). CONCLUSIONS: 1. No evidence of any significant myocardial ischemia or infarction on this study. 2. Normal regional wall motion. 3. Normal global left ventricular systolic function with a calculated ejection fraction of 71%. Job ID: [id number] DocumentID: [id number] Dictated Date: 10/24/2017 11:07:16 Sexual Health Physician Date: 10/24/2017 17:46:02 Dictated By: AKI VIDAL MD, MA, FACP, FACC, MTDD
== END ==
LOC: CARD 07:18
PROVIDERS: ATTEND Nurse Practitioner Family
DX: I48.0 Paroxysmal atrial fibrillation (principal); I34.0 Nonrheumatic mitral (valve) insufficiency; I07.1 Rheumatic tricuspid insufficiency; Z79.01 Long term (current) use of anticoagulants
CPT/HCPCS: 78452; 93017

== ENCOUNTER 2017-12-03 09:55 | Outpatient (RCR) | payer MEDICARE, OTHER ==
[~2017-12-03 09:55] MED LIST changes: -CATHETER FLUSH 10 ML SYR IV PRN; -OXYC-197 PO; +OXYC1TAB87 PO; -REGADENOSON 0.4 MG/5 ML SYR (LEXISCAN) IV ONE
[2017-12-03 10:17] LABS: BASOPHILS % (AUTO) 1 % (0-10); EOSINOPHILS # (AUTO) 0.1 10^3/uL (0.0-0.3); EOSINOPHILS % (AUTO) 2 % (0-10); HEMATOCRIT 44 % (35-52); HEMOGLOBIN 14.7 G/DL (11.5-16.0); LYMPHOCYTES # (AUTO) 2.1 X 10^3 (1.0-4.0); LYMPHOCYTES % (AUTO) 32 % (12-44); MEAN CORPUSCULAR HEMOGLOBIN 31 PG (25-34); MEAN CORPUSCULAR HGB CONC 34 G/DL (32-36); MEAN CORPUSCULAR VOLUME 91 FL (80-99); MEAN PLATELET VOLUME 11.5 FL (7.4-10.4); MONOCYTES # (AUTO) 0.7 X 10^3 (0.0-1.0); MONOCYTES % (AUTO) 10 % (0-12); NEUTROPHILS # (AUTO) 3.5 X 10^3 (1.8-7.8); NEUTROPHILS % (AUTO) 55 % (42-75); PLATELET COUNT 187 10^3/uL (130-400); RED BLOOD COUNT 4.81 10^6/uL (4.35-5.85); RED CELL DISTRIBUTION WIDTH 14.2 % (10.0-14.5); WHITE BLOOD COUNT 6.3 10^3/uL (4.3-11.0)
[2017-12-03 10:43] LABS: ALANINE AMINOTRANSFERASE 19 U/L (0-55); ALKALINE PHOSPHATASE 83 U/L (40-136); BILIRUBIN,TOTAL 0.5 MG/DL (0.1-1.0); BUN/CREATININE RATIO 16; CALCIUM 9.7 MG/DL (8.5-10.1); CARBON DIOXIDE 22 MMOL/L (21-32); CHLORIDE 108 MMOL/L (98-107); CREATININE SERUM 0.89 MG/DL (0.60-1.30); GFR ESTIMATED > 60; GLUCOSE 105 MG/DL (70-105); POTASSIUM 4.3 MMOL/L (3.6-5.0); SODIUM 139 MMOL/L (135-145); TOTAL PROTEIN 7.3 GM/DL (6.4-8.2)
[2017-12-13] MEDS ORDERED: ACHD5005 PO (10:13)
== END 2018-03-03 | disposition home or self-care (01) ==
LOC: ONC 09:55
PROVIDERS: ATTEND Internal Medicine Hematology & Oncology
DX: C18.2 Malignant neoplasm of ascending colon (principal); C77.2 Secondary and unspecified malignant neoplasm of intra-abdominal lymph nodes; I10 Essential (primary) hypertension; I48.0 Paroxysmal atrial fibrillation; Z79.899 Other long term (current) drug therapy; Z45.2 Encounter for adjustment and management of vascular access device
CPT/HCPCS: 36591; 80053; 82378; 85025

== ENCOUNTER 2017-12-11 05:33 | Outpatient (CLI) | payer MEDICARE, OTHER ==
[~2017-12-11] VITALS: Ht 165.1 cm; Wt 80.7 kg
[~2017-12-11 05:33] MED LIST changes: +OXYC-197 PO; -OXYC1TAB87 PO
== END 2017-12-11 12:22 ==
LOC: PREOP 05:33
PROVIDERS: ATTEND Surgery
DX: Z01.818 Encounter for other preprocedural examination (principal)

== ENCOUNTER 2017-12-13 07:51 | Day surgery (SDC) | payer MEDICARE, OTHER ==
[~2017-12-13] VITALS: Ht 165.1 cm; Wt 80.7 kg
--- OUTSIDE RECORDS SUMMARY | 2017-12-13 07:58 | XMS REPORT | Continuity of Care Document ---
Author Author [facility] Organization [facility] Address Unknown Phone Unavailable Allergies Active Description Code Type Severity Reaction Onset Reported/Identified Relationship to Patient Clinical Status Yes No Known Drug Allergies [id number] Drug Allergy Unknown N/A 12/22/2015 Yes tramadol [id number] Drug Allergy Moderate RASH 01/31/2016 Medications There is no data. Problems Date Dx Coded Attending Type Code Diagnosis Diagnosed By 05/30/1004 ANAT ASHBY MD, Ot C18.2 MALIGNANT NEOPLASM OF ASCENDING COLON 05/30/1004 ANAT ASHBY MD, Ot 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 NEOPLASM OF 05/30/1004 ANAT ASHBY MD, Ot D50.9 IRON DEFICIENCY ANEMIA, UNSPECIFIED 05/30/1004 ANAT ASHBY MD Ot I10 ESSENTIAL (PRIMARY) HYPERTENSION 05/30/1004 ANAT ASHBY MD Ot I48.0 PAROXYSMAL ATRIAL FIBRILLATION 05/30/1004 ANAT ASHBY MD, Ot N39.0 URINARY TRACT INFECTION, SITE NOT SPECIF 05/30/1004 ANAT ASHBY MD Ot Z23 ENCOUNTER FOR IMMUNIZATION 05/30/1004 ANAT ASHBY MD Ot Z51.11 ENCOUNTER FOR ANTINEOPLASTIC CHEMOTHERAP 05/30/1004 ANAT ASHBY MD Ot Z79.899 OTHER LOOM FIXER (CURRENT) DRUG THERAPY 07/07/2014 HAYDEN MARQUEZ MD Ot V76.12 07/07/2015 HAYDEN MARQUEZ MD Ot Z12.31 12/22/2015 Ot V76.12 OTH SCREEN MAMMO-MALIGN NEOPLASM OF SEVEN 12/22/2015 Ot V76.12 OTH SCREEN MAMMO-MALIGN NEOPLASM OF SEVEN 12/22/2015 Ot 793.89 OTH (ABN) FINDINGS ON RADIOLOGICAL EXAMI 12/22/2015 HAYDEN MARQUEZ MD Ot 793.80 UNSPEC ABNORMAL MAMMOGRAM 12/22/2015 HAYDEN MARQUEZ MD Ot V76.12 OTH SCREEN MAMMO-MALIGN NEOPLASM OF SEVEN 12/22/2015 HAYDEN MARQUEZ MD Ot Z12.31 ENCNTR SCREEN MAMMOGRAM FOR MALIGNANT NE 12/22/2015 HAYDEN MARQUEZ MD Ot Z01.818 ENCOUNTER FOR OTHER PREPROCEDURAL EXAMIN 12/23/2015 HAYDEN MARQUEZ MD Ot Z01.818 ENCOUNTER FOR OTHER PREPROCEDURAL EXAMIN 12/23/2015 HAYDEN MARQUEZ MD Ot C18.2 MALIGNANT NEOPLASM OF ASCENDING COLON 12/23/2015 HAYDEN MARQUEZ MD Ot K57.30 DVRTCLOS OF LG INT W/O PERFORATION OR AB 12/23/2015 HAYDEN MARQUEZ MD Ot K63.9 DISEASE OF INTESTINE, UNSPECIFIED 12/26/2015 KVNG VALDEZ, ALEX Coates Ot K63.9 DISEASE OF INTESTINE, UNSPECIFIED 12/26/2015 KVNG VALDEZ, ALEX Coates Ot Z01.818 ENCOUNTER FOR OTHER PREPROCEDURAL EXAMIN 12/27/2015 ALEX CALDERON MD Ot K63.9 DISEASE OF INTESTINE, UNSPECIFIED 12/27/2015 KVNG VALDEZ, ALEX Coates Ot Z01.818 ENCOUNTER FOR OTHER PREPROCEDURAL EXAMIN 12/28/2015 ALEX CALDERON MD M Ot K80.20 CALCULUS OF GALLBLADDER W/O CHOLECYSTITI 12/28/2015 KVNG VALDEZ, ALEX M Ot R53.83 OTHER FATIGUE 12/28/2015 HAYDEN MARQUEZ MD Ot C18.2 MALIGNANT NEOPLASM OF ASCENDING COLON 12/28/2015 HAYDEN MARQUEZ MD Ot K57.30 DVRTCLOS OF LG INT W/O PERFORATION OR AB 12/31/2015 ALEX CALDERON MD M Ot K80.20 CALCULUS OF GALLBLADDER W/O CHOLECYSTITI 12/31/2015 KVNG VALDEZ, ALEX M Ot R53.83 OTHER FATIGUE 01/06/2016 ALEX CALDERON MD Ot C18.2 MALIGNANT NEOPLASM OF ASCENDING COLON 01/06/2016 ALEX CALDERON MD Ot 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 NEOPLASM OF 01/06/2016 ALEX CALDERON MD Ot D50.9 IRON DEFICIENCY ANEMIA, UNSPECIFIED 01/06/2016 ALEX CALDERON MD Ot D62 ACUTE POSTHEMORRHAGIC ANEMIA 01/06/2016 ALEX CALDERON MD Ot D63.0 ANEMIA IN NEOPLASTIC DISEASE 01/06/2016 ALEX CALDERON MD Ot E87.6 HYPOKALEMIA 01/06/2016 KVNG VALDEZ, ALEX Coates Ot I10 ESSENTIAL (PRIMARY) HYPERTENSION 01/06/2016 KVNG VALDEZ, ALEX Coates Ot I44.4 LEFT ANTERIOR FASCICULAR BLOCK 01/06/2016 ALEX CALDERON MD Ot I48.0 PAROXYSMAL ATRIAL FIBRILLATION 01/06/2016 ALEX CALDERON MD Ot K56.7 ILEUS, UNSPECIFIED 01/06/2016 ALEX CALDERON MD Ot K80.20 CALCULUS OF GALLBLADDER W/O CHOLECYSTITI 01/06/2016 ALEX CALDERON MD Ot R07.9 CHEST PAIN, UNSPECIFIED 01/06/2016 ALEX CALDERON MD Ot R63.4 ABNORMAL WEIGHT LOSS 01/12/2016 ALMA VALDEZ, HAYDEN Crowder Ot K57.90 DVRTCLOS OF INTEST, PART UNSP, W/O PERF 01/12/2016 HAYDEN MARQUEZ MD Ot K63.9 DISEASE OF INTESTINE, UNSPECIFIED 01/12/2016 HAYDEN MARQUEZ MD Ot K80.20 CALCULUS OF GALLBLADDER W/O CHOLECYSTITI 01/12/2016 HAYDEN MARQUEZ MD Ot R59.0 LOCALIZED ENLARGED LYMPH NODES 01/19/2016 HAYDEN MARQUEZ MD Ot K57.90 DVRTCLOS OF INTEST, PART UNSP, W/O PERF 01/19/2016 HAYDEN MARQUEZ MD Ot K63.9 DISEASE OF INTESTINE, UNSPECIFIED 01/19/2016 HADYEN MARQUEZ MD Ot K80.20 CALCULUS OF GALLBLADDER W/O CHOLECYSTITI 01/19/2016 HAYDEN MARQUEZ MD Ot R59.0 LOCALIZED ENLARGED LYMPH NODES 01/19/2016 ALEX CALDERON MD Ot K80.20 CALCULUS OF GALLBLADDER W/O CHOLECYSTITI 01/19/2016 ALEX CALDERON MD Ot R53.83 OTHER FATIGUE 01/31/2016 ALEX CALDERON MD Ot C18.9 MALIGNANT NEOPLASM OF COLON, UNSPECIFIED 01/31/2016 ALEX CALDERON MD Ot Z01.818 ENCOUNTER FOR OTHER PREPROCEDURAL EXAMIN 02/01/2016 ALEX CALDERON MD Ot C18.9 MALIGNANT NEOPLASM OF COLON, UNSPECIFIED 02/01/2016 ALEX CALDERON MD Ot Z01.818 ENCOUNTER FOR OTHER PREPROCEDURAL EXAMIN 02/01/2016 KVNG VALDEZ, ALEX Coates Ot K80.20 CALCULUS OF GALLBLADDER W/O CHOLECYSTITI 02/01/2016 ALEX CALDERON MD Ot R53.83 OTHER FATIGUE 02/03/2016 ALEX CALDERON MD, Ot C18.2 MALIGNANT NEOPLASM OF ASCENDING COLON 02/03/2016 ALEX CALDERON MD, Ot Z53.09 PROC/TRTMT NOT CARRIED OUT BECAUSE OF CO 02/03/2016 ALEX CALDERON MD, Ot Z79.01 LOOM FIXER (CURRENT) USE OF ANTICOAGULANT 02/06/2016 Ot V76.12 OTH SCREEN MAMMO-MALIGN NEOPLASM OF SEVEN 02/06/2016 Ot V76.12 OTH SCREEN MAMMO-MALIGN NEOPLASM OF SEVEN 02/06/2016 Ot 793.89 OTH (ABN) FINDINGS ON RADIOLOGICAL EXAMI 02/06/2016 ALMA VALDEZ, HAYDEN Crowder Ot 793.80 UNSPEC ABNORMAL MAMMOGRAM 02/06/2016 HAYDEN MARQUEZ MD, Ot V76.12 OTH SCREEN MAMMO-MALIGN NEOPLASM OF SEVEN 02/06/2016 HAYDEN MARQUEZ MD, Ot Z12.31 ENCNTR SCREEN MAMMOGRAM FOR MALIGNANT NE 02/06/2016 ALMA VALDEZ, HAYDEN Crowder Ot K57.90 DVRTCLOS OF INTEST, PART UNSP, W/O PERF 02/06/2016 HAYDEN MARQUEZ MD Ot K63.9 DISEASE OF INTESTINE, UNSPECIFIED 02/06/2016 HAYDEN MARQUEZ MD Ot K80.20 CALCULUS OF GALLBLADDER W/O CHOLECYSTITI 02/06/2016 HAYDEN MARQUEZ MD Ot R59.0 LOCALIZED ENLARGED LYMPH NODES 02/06/2016 ALEX CALDERON MD, Ot K80.20 CALCULUS OF GALLBLADDER W/O CHOLECYSTITI 02/06/2016 ALEX CALDERON MD Ot R53.83 OTHER FATIGUE 02/06/2016 ANAT ASHBY MD Ot C18.2 MALIGNANT NEOPLASM OF ASCENDING COLON 02/06/2016 ANAT ASHYB MD Ot 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 NEOPLASM OF 02/06/2016 ANAT ASHBY MD Ot D50.9 IRON DEFICIENCY ANEMIA, UNSPECIFIED 02/06/2016 ANAT ASHBY MD Ot I10 ESSENTIAL (PRIMARY) HYPERTENSION 02/06/2016 ANAT ASHBY MD Ot I48.0 PAROXYSMAL ATRIAL FIBRILLATION 02/06/2016 ANAT ASHBY MD Ot Z79.899 OTHER LOOM FIXER (CURRENT) DRUG THERAPY 02/06/2016 ALEX CALDERON MD M Ot C18.2 MALIGNANT NEOPLASM OF ASCENDING COLON 02/07/2016 ALEX CALDERON MD M Ot C18.2 MALIGNANT NEOPLASM OF ASCENDING COLON 02/07/2016 ALEX CALDERON MD Ot Z53.09 PROC/TRTMT NOT CARRIED OUT BECAUSE OF CO 02/07/2016 ALEX CALDERON MD Ot Z79.01 LOOM FIXER (CURRENT) USE OF ANTICOAGULANT 02/07/2016 ALEX CALDERON MD M Ot C18.2 MALIGNANT NEOPLASM OF ASCENDING COLON 02/08/2016 ANAT ASHBY MD K Ot C18.2 MALIGNANT NEOPLASM OF ASCENDING COLON 02/08/2016 ANAT ASHBY MD K Ot C18.2 MALIGNANT NEOPLASM OF ASCENDING COLON 02/08/2016 ANAT ASHBY MD Ot 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 NEOPLASM OF 02/08/2016 ANAT ASHBY MD Ot D50.9 IRON DEFICIENCY ANEMIA, UNSPECIFIED 02/08/2016 ISMA VALDEZ ANAT Jorge Ot I10 ESSENTIAL (PRIMARY) HYPERTENSION 02/08/2016 ANAT ASHBY MD Ot I48.0 PAROXYSMAL ATRIAL FIBRILLATION 02/08/2016 ANAT ASHBY MD Ot Z79.899 OTHER LONGTERM (CURRENT) DRUG THERAPY 02/12/2016 ALEX CALDERON MD M Ot C18.2 MALIGNANT NEOPLASM OF ASCENDING COLON 02/12/2016 ALEX CALDERON MD Ot Z53.09 PROC/TRTMT NOT CARRIED OUT BECAUSE OF CO 02/12/2016 ALEX CALDERON MD Ot Z79.01 LOOM FIXER (CURRENT) USE OF ANTICOAGULANT 02/21/2016 JOSE L MADISON SOFTWARE ENGINEERING SPECIALIST Ot C18.2 MALIGNANT NEOPLASM OF ASCENDING COLON 02/21/2016 JOSE L MADISON SOFTWARE ENGINEERING SPECIALIST Ot 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 NEOPLASM OF 02/21/2016 JOSE L MADISON SOFTWARE ENGINEERING SPECIALIST Ot D50.9 IRON DEFICIENCY ANEMIA, UNSPECIFIED 02/21/2016 JOSE L MADISON SOFTWARE ENGINEERING SPECIALIST Ot I10 ESSENTIAL (PRIMARY) HYPERTENSION 02/21/2016 JOSE L MADISON SOFTWARE ENGINEERING SPECIALIST Ot I48.0 PAROXYSMAL ATRIAL FIBRILLATION 02/21/2016 JOSE L MADISON SOFTWARE ENGINEERING SPECIALIST Ot Z79.899 OTHER LOOM FIXER (CURRENT) DRUG THERAPY 02/21/2016 JOSE L MADISON SOFTWARE ENGINEERING SPECIALIST Ot C18.2 MALIGNANT NEOPLASM OF ASCENDING COLON 02/21/2016 JOSE L MADISON SOFTWARE ENGINEERING SPECIALIST Ot 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 NEOPLASM OF 02/21/2016 JOSE L MADISON SOFTWARE ENGINEERING SPECIALIST Ot D50.9 IRON DEFICIENCY ANEMIA, UNSPECIFIED 02/21/2016 JOSE L MADISON SOFTWARE ENGINEERING SPECIALIST Ot I10 ESSENTIAL (PRIMARY) HYPERTENSION 02/21/2016 JOSE L MADISON SOFTWARE ENGINEERING SPECIALIST Ot I48.0 PAROXYSMAL ATRIAL FIBRILLATION 02/21/2016 JOSE L MADISON SOFTWARE ENGINEERING SPECIALIST Ot Z79.899 OTHER LONGTERM (CURRENT) DRUG THERAPY 02/21/2016 ANAT ASHBY MD K Ot C18.2 MALIGNANT NEOPLASM OF ASCENDING COLON 02/21/2016 ANAT ASHBY MD Ot 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 NEOPLASM OF 02/21/2016 ANAT ASHBY MD Ot D50.9 IRON DEFICIENCY ANEMIA, UNSPECIFIED 02/21/2016 ANAT ASHBY MD Ot I10 ESSENTIAL (PRIMARY) HYPERTENSION 02/21/2016 ANAT ASHBY MD Ot I48.0 PAROXYSMAL ATRIAL FIBRILLATION 02/21/2016 ANAT ASHBY MD Ot Z79.899 OTHER LOOM FIXER (CURRENT) DRUG THERAPY 02/29/2016 ANAT ASHBY MD Ot C18.2 MALIGNANT NEOPLASM OF ASCENDING COLON 02/29/2016 ANAT ASHBY MD Ot 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 NEOPLASM OF 02/29/2016 ANAT ASHBY MD Ot D50.9 IRON DEFICIENCY ANEMIA, UNSPECIFIED 02/29/2016 ANAT ASHBY MD Ot I10 ESSENTIAL (PRIMARY) HYPERTENSION 02/29/2016 ANAT ASHBY MD Ot I48.0 PAROXYSMAL ATRIAL FIBRILLATION 02/29/2016 ANAT ASHBY MD Ot Z79.899 OTHER LOOM FIXER (CURRENT) DRUG THERAPY 03/02/2016 ANAT ASHBY MD K Ot C18.2 MALIGNANT NEOPLASM OF ASCENDING COLON 03/09/2016 ANAT ASHBY MD Ot C18.2 MALIGNANT NEOPLASM OF ASCENDING COLON 03/09/2016 JOSE L MADISON SOFTWARE ENGINEERING SPECIALIST Ot C18.2 MALIGNANT NEOPLASM OF ASCENDING COLON 03/09/2016 JOSE L MADISON SOFTWARE ENGINEERING SPECIALIST Ot 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 NEOPLASM OF 03/09/2016 JOSE L MADISON SOFTWARE ENGINEERING SPECIALIST Ot D50.9 IRON DEFICIENCY ANEMIA, UNSPECIFIED 03/09/2016 JOSE L MADISON SOFTWARE ENGINEERING SPECIALIST Ot I10 ESSENTIAL (PRIMARY) HYPERTENSION 03/09/2016 MADISONJOSE L Portillo SOFTWARE ENGINEERING SPECIALIST Ot I48.0 PAROXYSMAL ATRIAL FIBRILLATION 03/09/2016 MADISONJOSE L Portillo SOFTWARE ENGINEERING SPECIALIST Ot Z79.899 OTHER LONGTERM (CURRENT) DRUG THERAPY 03/14/2016 JOSE L MADISON SOFTWARE ENGINEERING SPECIALIST Ot C18.2 MALIGNANT NEOPLASM OF ASCENDING COLON 03/14/2016 MADISONJOSE L Portillo SOFTWARE ENGINEERING SPECIALIST Ot 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 NEOPLASM OF 03/14/2016 MADISONJOSE L Portillo SOFTWARE ENGINEERING SPECIALIST Ot D50.9 IRON DEFICIENCY ANEMIA, UNSPECIFIED 03/14/2016 MADISONJOSE L Portillo SOFTWARE ENGINEERING SPECIALIST Ot I10 ESSENTIAL (PRIMARY) HYPERTENSION 03/14/2016 JOSE L MADISON SOFTWARE ENGINEERING SPECIALIST Ot I48.0 PAROXYSMAL ATRIAL FIBRILLATION 03/14/2016 MADISONJOSE L Portillo SOFTWARE ENGINEERING SPECIALIST Ot Z79.899 OTHER LONGTERM (CURRENT) DRUG THERAPY 03/14/2016 MADISON JOSE L Portillo SOFTWARE ENGINEERING SPECIALIST Ot C18.2 MALIGNANT NEOPLASM OF ASCENDING COLON 03/14/2016 MADISON JOSE L Portillo SOFTWARE ENGINEERING SPECIALIST Ot 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 NEOPLASM OF 03/14/2016 MADISON JOSE L Portillo SOFTWARE ENGINEERING SPECIALIST Ot D50.9 IRON DEFICIENCY ANEMIA, UNSPECIFIED 03/14/2016 MADISONJOSE L Portillo SOFTWARE ENGINEERING SPECIALIST Ot I10 ESSENTIAL (PRIMARY) HYPERTENSION 03/14/2016 MADISONJOSE L Portillo SOFTWARE ENGINEERING SPECIALIST Ot I48.0 PAROXYSMAL ATRIAL FIBRILLATION 03/14/2016 GRICELDA JOSE L Portillo SOFTWARE ENGINEERING SPECIALIST Ot Z79.899 OTHER LONGTERM (CURRENT) DRUG THERAPY 03/18/2016 ANAT ASHBY MD K Ot C18.2 MALIGNANT NEOPLASM OF ASCENDING COLON 03/18/2016 ANAT ASHBY MD Ot 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 NEOPLASM OF 03/18/2016 ANAT ASHBY MD K Ot D50.9 IRON DEFICIENCY ANEMIA, UNSPECIFIED 03/18/2016 ANAT ASHBY MD K Ot I10 ESSENTIAL (PRIMARY) HYPERTENSION 03/18/2016 ANAT ASHBY MD K Ot I48.0 PAROXYSMAL ATRIAL FIBRILLATION 03/18/2016 ANAT ASHBY MD Ot Z79.899 OTHER LOOM FIXER (CURRENT) DRUG THERAPY 03/21/2016 JOSE L MADISON Lindsey SOFTWARE ENGINEERING SPECIALIST Ot C18.2 MALIGNANT NEOPLASM OF ASCENDING COLON 03/21/2016 OFE MADISONSHAUNA Portillo SOFTWARE ENGINEERING SPECIALIST Ot 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 NEOPLASM OF 03/21/2016 JOSE L MADISON SOFTWARE ENGINEERING SPECIALIST Ot D50.9 IRON DEFICIENCY ANEMIA, UNSPECIFIED 03/21/2016 JOSE L MADISON SOFTWARE ENGINEERING SPECIALIST Ot I10 ESSENTIAL (PRIMARY) HYPERTENSION 03/21/2016 JOSE L MADISON SOFTWARE ENGINEERING SPECIALIST Ot I48.0 PAROXYSMAL ATRIAL FIBRILLATION 03/21/2016 JOSE L MADISON SOFTWARE ENGINEERING SPECIALIST Ot Z79.899 OTHER LOOM FIXER (CURRENT) DRUG THERAPY 03/28/2016 ANAT ASHBY MD Ot C18.2 MALIGNANT NEOPLASM OF ASCENDING COLON 03/28/2016 ANAT ASHBY MD, Ot 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 NEOPLASM OF 03/28/2016 ANAT ASHBY MD Ot D50.9 IRON DEFICIENCY ANEMIA, UNSPECIFIED 03/28/2016 ANAT ASHBY MD Ot I10 ESSENTIAL (PRIMARY) HYPERTENSION 03/28/2016 ANAT ASHBY MD, Ot I48.0 PAROXYSMAL ATRIAL FIBRILLATION 03/28/2016 ANAT ASHBY MD, Ot Z79.899 OTHER LOOM FIXER (CURRENT) DRUG THERAPY 04/02/2016 ANAT ASHBY MD, Ot C18.2 MALIGNANT NEOPLASM OF ASCENDING COLON 04/02/2016 ANAT ASHBY MD, Ot 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 NEOPLASM OF 04/02/2016 ANAT ASHBY MD, Ot D50.9 IRON DEFICIENCY ANEMIA, UNSPECIFIED 04/02/2016 ANAT ASHBY MD, Ot I10 ESSENTIAL (PRIMARY) HYPERTENSION 04/02/2016 ANAT ASHBY MD, Ot I48.0 PAROXYSMAL ATRIAL FIBRILLATION 04/02/2016 ANAT ASHBY MD, Ot N39.0 URINARY TRACT INFECTION, SITE NOT SPECIF 04/02/2016 ANAT ASHBY MD Ot Z23 ENCOUNTER FOR IMMUNIZATION 04/02/2016 ANAT ASHBY MD Ot Z51.11 ENCOUNTER FOR ANTINEOPLASTIC CHEMOTHERAP 04/02/2016 ANAT ASHBY MD Ot Z79.899 OTHER LOOM FIXER (CURRENT) DRUG THERAPY 04/05/2016 ANAT ASHBY MD, Ot C18.2 MALIGNANT NEOPLASM OF ASCENDING COLON 04/05/2016 ANAT ASHBY MD, Ot 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 NEOPLASM OF 04/05/2016 ANAT ASHBY MD Ot D50.9 IRON DEFICIENCY ANEMIA, UNSPECIFIED 04/05/2016 ANAT ASHBY MD Ot I10 ESSENTIAL (PRIMARY) HYPERTENSION 04/05/2016 ANAT ASHBY MD Ot I48.0 PAROXYSMAL ATRIAL FIBRILLATION 04/05/2016 ANAT ASHBY MD Ot Z79.899 OTHER LONGTERM (CURRENT) DRUG THERAPY 04/18/2016 ANAT ASHBY MD Ot C18.2 MALIGNANT NEOPLASM OF ASCENDING COLON 04/18/2016 ANAT ASHBY MD, Ot 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 NEOPLASM OF 04/18/2016 ANAT ASHBY MD Ot D50.9 IRON DEFICIENCY ANEMIA, UNSPECIFIED 04/18/2016 ANAT ASHBY MD Ot I10 ESSENTIAL (PRIMARY) HYPERTENSION 04/18/2016 ANAT ASHBY MD Ot I48.0 PAROXYSMAL ATRIAL FIBRILLATION 04/18/2016 ANAT ASHBY MD Ot Z51.11 ENCOUNTER FOR ANTINEOPLASTIC CHEMOTHERAP 04/18/2016 ANAT ASHBY MD Ot Z79.899 OTHER LOOM FIXER (CURRENT) DRUG THERAPY 05/16/2016 ANAT ASHBY MD, Ot C18.2 MALIGNANT NEOPLASM OF ASCENDING COLON 05/16/2016 ANAT ASHBY MD, Ot 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 NEOPLASM OF 05/16/2016 ANAT ASHBY MD, Ot D50.9 IRON DEFICIENCY ANEMIA, UNSPECIFIED 05/16/2016 ANAT ASHBY MD Ot I10 ESSENTIAL (PRIMARY) HYPERTENSION 05/16/2016 ANAT ASHBY MD Ot I48.0 PAROXYSMAL ATRIAL FIBRILLATION 05/16/2016 ANAT ASHBY MD Ot Z51.11 ENCOUNTER FOR ANTINEOPLASTIC CHEMOTHERAP 05/16/2016 ANAT ASHBY MD Ot Z79.899 OTHER LONGTERM (CURRENT) DRUG THERAPY 05/29/2016 ANAT ASHBY MD Ot C18.2 MALIGNANT NEOPLASM OF ASCENDING COLON 05/29/2016 ANAT ASHBY MD, Ot 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 NEOPLASM OF 05/29/2016 ANAT ASHBY MD Ot D50.9 IRON DEFICIENCY ANEMIA, UNSPECIFIED 05/29/2016 ANAT ASHBY MD Ot I10 ESSENTIAL (PRIMARY) HYPERTENSION 05/29/2016 ANAT ASHBY MD Ot I48.0 PAROXYSMAL ATRIAL FIBRILLATION 05/29/2016 ANAT ASHBY MD Ot Z51.11 ENCOUNTER FOR ANTINEOPLASTIC CHEMOTHERAP 05/29/2016 ANAT ASHBY MD Ot Z79.899 OTHER LONGTERM (CURRENT) DRUG THERAPY 06/06/2016 ANAT ASHBY MD Ot C18.2 MALIGNANT NEOPLASM OF ASCENDING COLON 06/06/2016 ANAT ASHBY MD, Ot 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 NEOPLASM OF 06/06/2016 ANAT ASHBY MD Ot D50.9 IRON DEFICIENCY ANEMIA, UNSPECIFIED 06/06/2016 ANAT ASHBY MD Ot I10 ESSENTIAL (PRIMARY) HYPERTENSION 06/06/2016 ANAT ASHBY MD Ot I48.0 PAROXYSMAL ATRIAL FIBRILLATION 06/06/2016 ANAT ASHBY MD Ot Z51.11 ENCOUNTER FOR ANTINEOPLASTIC CHEMOTHERAP 06/06/2016 ANAT ASHBY MD Ot Z79.899 OTHER LONGTERM (CURRENT) DRUG THERAPY 06/13/2016 ANAT ASHBY MD Ot C18.2 MALIGNANT NEOPLASM OF ASCENDING COLON 06/13/2016 ANAT ASHBY MD Ot 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 NEOPLASM OF 06/13/2016 ANAT ASHBY MD Ot D50.9 IRON DEFICIENCY ANEMIA, UNSPECIFIED 06/13/2016 ANAT ASHBY MD Ot I10 ESSENTIAL (PRIMARY) HYPERTENSION 06/13/2016 ANAT ASHBY MD Ot I48.0 PAROXYSMAL ATRIAL FIBRILLATION 06/13/2016 ANAT ASHBY MD Ot Z51.11 ENCOUNTER FOR ANTINEOPLASTIC CHEMOTHERAP 06/13/2016 ANAT ASHBY MD Ot Z79.899 OTHER LONGTERM (CURRENT) DRUG THERAPY 06/19/2016 Ot V76.12 OTH SCREEN MAMMO-MALIGN NEOPLASM OF SEVEN 06/19/2016 Ot V76.12 OTH SCREEN MAMMO-MALIGN NEOPLASM OF SEVEN 06/19/2016 Ot 793.89 OTH (ABN) FINDINGS ON RADIOLOGICAL EXAMI 06/19/2016 HAYDEN MARQUEZ MD Ot 793.80 UNSPEC ABNORMAL MAMMOGRAM 06/19/2016 HAYDEN MARQUEZ MD Ot V76.12 OTH SCREEN MAMMO-MALIGN NEOPLASM OF SEVEN 06/19/2016 HAYDEN MARQUEZ MD Ot Z12.31 ENCNTR SCREEN MAMMOGRAM FOR MALIGNANT NE 06/19/2016 HAYDEN MARQUEZ MD Ot K57.90 DVRTCLOS OF INTEST, PART UNSP, W/O PERF 06/19/2016 HAYDEN MARQUEZ MD Ot K63.9 DISEASE OF INTESTINE, UNSPECIFIED 06/19/2016 HAYDEN MARQUEZ MD Ot K80.20 CALCULUS OF GALLBLADDER W/O CHOLECYSTITI 06/19/2016 HAYDEN MARQUEZ MD Ot R59.0 LOCALIZED ENLARGED LYMPH NODES 06/19/2016 KVNG VALDEZ, ALEX Coates Ot K80.20 CALCULUS OF GALLBLADDER W/O CHOLECYSTITI 06/19/2016 KVNG VALDEZ, ALEX M Ot R53.83 OTHER FATIGUE 06/19/2016 ANAT ASHBY MD Ot C18.2 MALIGNANT NEOPLASM OF ASCENDING COLON 06/19/2016 JOSE L MADISON SOFTWARE ENGINEERING SPECIALIST Ot C18.2 MALIGNANT NEOPLASM OF ASCENDING COLON 06/19/2016 JOSE L MADISON SOFTWARE ENGINEERING SPECIALIST Ot 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 NEOPLASM OF 06/19/2016 JOSE L MADISON SOFTWARE ENGINEERING SPECIALIST Ot D50.9 IRON DEFICIENCY ANEMIA, UNSPECIFIED 06/19/2016 JOSE L MADISON SOFTWARE ENGINEERING SPECIALIST Ot I10 ESSENTIAL (PRIMARY) HYPERTENSION 06/19/2016 JOSE L MADISON SOFTWARE ENGINEERING SPECIALIST Ot I48.0 PAROXYSMAL ATRIAL FIBRILLATION 06/19/2016 JOSE L MADISON SOFTWARE ENGINEERING SPECIALIST Ot Z79.899 OTHER LONGTERM (CURRENT) DRUG THERAPY 06/19/2016 JOSE L MADISON SOFTWARE ENGINEERING SPECIALIST Ot C18.2 MALIGNANT NEOPLASM OF ASCENDING COLON 06/19/2016 JOSE L MADISON SOFTWARE ENGINEERING SPECIALIST Ot 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 NEOPLASM OF 06/19/2016 JOSE L MADISON SOFTWARE ENGINEERING SPECIALIST Ot D50.9 IRON DEFICIENCY ANEMIA, UNSPECIFIED 06/19/2016 JOSE L MADISON SOFTWARE ENGINEERING SPECIALIST Ot I10 ESSENTIAL (PRIMARY) HYPERTENSION 06/19/2016 JOSE L MADISON SOFTWARE ENGINEERING SPECIALIST Ot I48.0 PAROXYSMAL ATRIAL FIBRILLATION 06/19/2016 MADISONJOSE L Portillo SOFTWARE ENGINEERING SPECIALIST Ot Z79.899 OTHER LONGTERM (CURRENT) DRUG THERAPY 06/19/2016 ANAT ASHBY MD Ot C18.2 MALIGNANT NEOPLASM OF ASCENDING COLON 06/19/2016 ANAT ASHBY MD Ot 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 NEOPLASM OF 06/19/2016 ANAT ASHBY MD Ot D50.9 IRON DEFICIENCY ANEMIA, UNSPECIFIED 06/19/2016 ANAT ASHBY MD Ot I10 ESSENTIAL (PRIMARY) HYPERTENSION 06/19/2016 ANAT ASHBY MD Ot I48.0 PAROXYSMAL ATRIAL FIBRILLATION 06/19/2016 ANAT ASHBY MD Ot Z51.11 ENCOUNTER FOR ANTINEOPLASTIC CHEMOTHERAP 06/19/2016 ANAT ASHBY MD Ot Z79.899 OTHER LONGTERM (CURRENT) DRUG THERAPY 06/19/2016 ALMA VALDEZ, HAYDEN Crowder Ot Z12.31 ENCNTR SCREEN MAMMOGRAM FOR MALIGNANT NE 06/21/2016 HAYDEN MARQUEZ MD, Ot Z12.31 ENCNTR SCREEN MAMMOGRAM FOR MALIGNANT NE 06/22/2016 HAYDEN MARQUEZ MD Ot Z12.31 ENCNTR SCREEN MAMMOGRAM FOR MALIGNANT NE 07/03/2016 ANAT ASHBY MD Ot C18.2 MALIGNANT NEOPLASM OF ASCENDING COLON 07/03/2016 ANAT ASHBY MD Ot 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 NEOPLASM OF 07/03/2016 ANAT ASHBY MD Ot D50.9 IRON DEFICIENCY ANEMIA, UNSPECIFIED 07/03/2016 ANAT ASHBY MD Ot I10 ESSENTIAL (PRIMARY) HYPERTENSION 07/03/2016 ANAT ASHBY MD Ot I48.0 PAROXYSMAL ATRIAL FIBRILLATION 07/03/2016 ANAT ASHBY MD Ot Z51.11 ENCOUNTER FOR ANTINEOPLASTIC CHEMOTHERAP 07/03/2016 ANAT ASHBY MD Ot Z79.899 OTHER LONGTERM (CURRENT) DRUG THERAPY 07/11/2016 ANAT ASHBY MD Ot C18.2 MALIGNANT NEOPLASM OF ASCENDING COLON 07/11/2016 ANAT ASHBY MD Ot 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 NEOPLASM OF 07/11/2016 ANAT ASHBY MD Ot D50.9 IRON DEFICIENCY ANEMIA, UNSPECIFIED 07/11/2016 ANAT ASHBY MD Ot I10 ESSENTIAL (PRIMARY) HYPERTENSION 07/11/2016 ANAT ASHBY MD Ot I48.0 PAROXYSMAL ATRIAL FIBRILLATION 07/11/2016 ANAT ASHBY MD Ot Z51.11 ENCOUNTER FOR ANTINEOPLASTIC CHEMOTHERAP 07/11/2016 ANAT ASHBY MD Ot Z79.899 OTHER LOOM FIXER (CURRENT) DRUG THERAPY 07/11/2016 HAYDEN MARQUEZ MD Ot Z12.31 ENCNTR SCREEN MAMMOGRAM FOR MALIGNANT NE 07/25/2016 ANAT ASHBY MD Ot C18.2 MALIGNANT NEOPLASM OF ASCENDING COLON 07/25/2016 ANAT ASHBY MD Ot 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 NEOPLASM OF 07/25/2016 ANAT ASHBY MD Ot D50.9 IRON DEFICIENCY ANEMIA, UNSPECIFIED 07/25/2016 ANAT ASHBY MD Ot I10 ESSENTIAL (PRIMARY) HYPERTENSION 07/25/2016 ANAT ASHBY MD Ot I48.0 PAROXYSMAL ATRIAL FIBRILLATION 07/25/2016 ANAT ASHBY MD Ot Z51.11 ENCOUNTER FOR ANTINEOPLASTIC CHEMOTHERAP 07/25/2016 ANAT ASHBY MD Ot Z79.899 OTHER LONGTERM (CURRENT) DRUG THERAPY 08/08/2016 ANAT ASHBY MD Ot C18.2 MALIGNANT NEOPLASM OF ASCENDING COLON 08/08/2016 ANAT ASHBY MD, Ot 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 NEOPLASM OF 08/08/2016 ANAT ASHBY MD Ot D50.9 IRON DEFICIENCY ANEMIA, UNSPECIFIED 08/08/2016 ANAT ASHBY MD Ot I10 ESSENTIAL (PRIMARY) HYPERTENSION 08/08/2016 ANAT ASHBY MD Ot I48.0 PAROXYSMAL ATRIAL FIBRILLATION 08/08/2016 ANAT ASHBY MD Ot Z51.11 ENCOUNTER FOR ANTINEOPLASTIC CHEMOTHERAP 08/08/2016 ANAT ASHBY MD Ot Z79.899 OTHER LONGTERM (CURRENT) DRUG THERAPY 08/08/2016 ANAT ASHBY MD, Ot C18.2 MALIGNANT NEOPLASM OF ASCENDING COLON 08/08/2016 ANAT ASHBY MD, Ot 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 NEOPLASM OF 08/08/2016 ANAT ASHBY MD Ot D50.9 IRON DEFICIENCY ANEMIA, UNSPECIFIED 08/08/2016 ANAT ASHBY MD Ot I10 ESSENTIAL (PRIMARY) HYPERTENSION 08/08/2016 ANAT ASHBY MD Ot I48.0 PAROXYSMAL ATRIAL FIBRILLATION 08/08/2016 ANAT ASHBY MD Ot Z51.11 ENCOUNTER FOR ANTINEOPLASTIC CHEMOTHERAP 08/08/2016 ANAT ASHBY MD Ot Z79.899 OTHER LOOM FIXER (CURRENT) DRUG THERAPY 08/22/2016 KAREN JAUREGUI SOFTWARE ENGINEERING SPECIALIST Ot I48.0 PAROXYSMAL ATRIAL FIBRILLATION 08/22/2016 KAREN JAUREGUI SOFTWARE ENGINEERING SPECIALIST Ot I73.9 PERIPHERAL VASCULAR DISEASE, UNSPECIFIED 08/22/2016 KAREN JAUREGUI SOFTWARE ENGINEERING SPECIALIST Ot Z79.01 LONGTERM (CURRENT) USE OF ANTICOAGULANT 08/23/2016 ANAT ASHBY MD Ot C18.2 MALIGNANT NEOPLASM OF ASCENDING COLON 08/23/2016 ANAT ASHBY MD Ot 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 NEOPLASM OF 08/23/2016 ANAT ASHBY MD Ot D50.9 IRON DEFICIENCY ANEMIA, UNSPECIFIED 08/23/2016 ANAT ASHBY MD Ot I10 ESSENTIAL (PRIMARY) HYPERTENSION 08/23/2016 ANAT ASHBY MD Ot I48.0 PAROXYSMAL ATRIAL FIBRILLATION 08/23/2016 ANAT ASHBY MD Ot Z51.11 ENCOUNTER FOR ANTINEOPLASTIC CHEMOTHERAP 08/23/2016 ANAT ASHBY MD Ot Z79.899 OTHER LONGTERM (CURRENT) DRUG THERAPY 08/30/2016 ANAT ASHBY MD Ot C18.2 MALIGNANT NEOPLASM OF ASCENDING COLON 08/30/2016 ANAT ASHBY MD Ot 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 NEOPLASM OF 08/30/2016 ANAT ASHBY MD Ot D50.9 IRON DEFICIENCY ANEMIA, UNSPECIFIED 08/30/2016 ANAT ASHBY MD Ot I10 ESSENTIAL (PRIMARY) HYPERTENSION 08/30/2016 ANAT ASHBY MD Ot I48.0 PAROXYSMAL ATRIAL FIBRILLATION 08/30/2016 ANAT ASHBY MD Ot Z51.11 ENCOUNTER FOR ANTINEOPLASTIC CHEMOTHERAP 08/30/2016 ANAT ASHBY MD Ot Z79.899 OTHER LOOM FIXER (CURRENT) DRUG THERAPY 09/05/2016 ANAT ASHBY MD Ot C18.2 MALIGNANT NEOPLASM OF ASCENDING COLON 09/05/2016 ANAT ASHBY MD, Ot 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 NEOPLASM OF 09/05/2016 ANAT ASHBY MD Ot D50.9 IRON DEFICIENCY ANEMIA, UNSPECIFIED 09/05/2016 ANAT ASHBY MD Ot I10 ESSENTIAL (PRIMARY) HYPERTENSION 09/05/2016 ANAT ASHBY MD Ot I48.0 PAROXYSMAL ATRIAL FIBRILLATION 09/05/2016 ANAT ASHBY MD Ot Z51.11 ENCOUNTER FOR ANTINEOPLASTIC CHEMOTHERAP 09/05/2016 ANAT ASHBY MD Ot Z79.899 OTHER LONGTERM (CURRENT) DRUG THERAPY 09/11/2016 BAIMAKAREN L SOFTWARE ENGINEERING SPECIALIST Ot I48.0 PAROXYSMAL ATRIAL FIBRILLATION 09/11/2016 KAREN JAUREGUI L SOFTWARE ENGINEERING SPECIALIST Ot I73.9 PERIPHERAL VASCULAR DISEASE, UNSPECIFIED 09/11/2016 BAIMAKAREN L SOFTWARE ENGINEERING SPECIALIST Ot Z79.01 LONGTERM (CURRENT) USE OF ANTICOAGULANT 09/19/2016 BAIMA KAREN L SOFTWARE ENGINEERING SPECIALIST Ot I48.0 PAROXYSMAL ATRIAL FIBRILLATION 09/19/2016 BAIMAJANEKAREN L SOFTWARE ENGINEERING SPECIALIST Ot I73.9 PERIPHERAL VASCULAR DISEASE, UNSPECIFIED 09/19/2016 BAIMA KAREN L SOFTWARE ENGINEERING SPECIALIST Ot Z79.01 LOOM FIXER (CURRENT) USE OF ANTICOAGULANT 10/02/2016 ANAT ASHBY MD Ot C18.2 MALIGNANT NEOPLASM OF ASCENDING COLON 10/02/2016 ANAT ASHBY MD Ot 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 NEOPLASM OF 10/02/2016 ANAT ASHBY MD Ot D50.9 IRON DEFICIENCY ANEMIA, UNSPECIFIED 10/02/2016 ANAT ASHBY MD Ot I10 ESSENTIAL (PRIMARY) HYPERTENSION 10/02/2016 ANAT ASHBY MD Ot I48.0 PAROXYSMAL ATRIAL FIBRILLATION 10/02/2016 ANAT ASHBY MD Ot Z51.11 ENCOUNTER FOR ANTINEOPLASTIC CHEMOTHERAP 10/02/2016 ANAT ASHBY MD Ot Z79.899 OTHER LOOM FIXER (CURRENT) DRUG THERAPY 10/03/2016 ANAT ASHBY MD Ot C18.2 MALIGNANT NEOPLASM OF ASCENDING COLON 10/03/2016 ANAT ASHBY MD, Ot 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 NEOPLASM OF 10/03/2016 ANAT ASHBY MD Ot D50.9 IRON DEFICIENCY ANEMIA, UNSPECIFIED 10/03/2016 ANAT ASHBY MD Ot I10 ESSENTIAL (PRIMARY) HYPERTENSION 10/03/2016 ANAT ASHBY MD Ot I48.0 PAROXYSMAL ATRIAL FIBRILLATION 10/03/2016 ANAT ASHBY MD Ot Z51.11 ENCOUNTER FOR ANTINEOPLASTIC CHEMOTHERAP 10/03/2016 ANAT ASHBY MD, Ot Z79.899 OTHER LOOM FIXER (CURRENT) DRUG THERAPY 11/05/2016 ANAT ASHBY MD, Ot C18.2 MALIGNANT NEOPLASM OF ASCENDING COLON 11/05/2016 ANAT ASHBY MD, Ot 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 NEOPLASM OF 11/05/2016 ANAT ASHBY MD Ot D50.9 IRON DEFICIENCY ANEMIA, UNSPECIFIED 11/05/2016 ANAT ASHBY MD Ot I10 ESSENTIAL (PRIMARY) HYPERTENSION 11/05/2016 ANAT ASHBY MD Ot I48.0 PAROXYSMAL ATRIAL FIBRILLATION 11/05/2016 ANAT ASHBY MD Ot Z45.2 ENCOUNTER FOR ADJUSTMENT AND MANAGEMENT 11/05/2016 ANAT ASHBY MD, Ot Z79.899 OTHER LOOM FIXER (CURRENT) DRUG THERAPY 11/23/2016 ANAT ASHBY MD, Ot C18.2 MALIGNANT NEOPLASM OF ASCENDING COLON 11/23/2016 ANAT ASHBY MD, Ot 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 NEOPLASM OF 11/23/2016 ANAT ASHBY MD Ot D50.9 IRON DEFICIENCY ANEMIA, UNSPECIFIED 11/23/2016 ANAT ASHBY MD Ot I10 ESSENTIAL (PRIMARY) HYPERTENSION 11/23/2016 ANAT ASHBY MD Ot I48.0 PAROXYSMAL ATRIAL FIBRILLATION 11/23/2016 ANAT ASHBY MD Ot Z45.2 ENCOUNTER FOR ADJUSTMENT AND MANAGEMENT 11/23/2016 ANAT ASHBY MD Ot Z79.899 OTHER LONGTERM (CURRENT) DRUG THERAPY 12/06/2016 ANAT ASHBY MD Ot C18.2 MALIGNANT NEOPLASM OF ASCENDING COLON 12/06/2016 ANAT ASHBY MD, Ot 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 NEOPLASM OF 12/06/2016 ANAT ASHBY MD, Ot D50.9 IRON DEFICIENCY ANEMIA, UNSPECIFIED 12/06/2016 ANAT ASHBY MD Ot I10 ESSENTIAL (PRIMARY) HYPERTENSION 12/06/2016 ANAT ASHBY MD Ot I48.0 PAROXYSMAL ATRIAL FIBRILLATION 12/06/2016 ANAT ASHBY MD, Ot Z45.2 ENCOUNTER FOR ADJUSTMENT AND MANAGEMENT 12/06/2016 ANAT ASHBY MD Ot Z79.899 OTHER LOOM FIXER (CURRENT) DRUG THERAPY 12/20/2016 ALEX CALDERON MD, Ot K80.20 CALCULUS OF GALLBLADDER W/O CHOLECYSTITI 12/20/2016 ALEX CALDERON MD, Ot R53.83 OTHER FATIGUE 12/27/2016 ANAT ASHBY MD Ot C18.2 MALIGNANT NEOPLASM OF ASCENDING COLON 12/27/2016 ANAT ASHBY MD, Ot K76.9 LIVER DISEASE, UNSPECIFIED 12/27/2016 ANAT ASHBY MD Ot Z90.49 ACQUIRED ABSENCE OF OTHER SPECIFIED PART 12/27/2016 ANAT ASHBY MD Ot Z98.890 OTHER SPECIFIED POSTPROCEDURAL STATES 01/14/2017 ALEX CALDERON MD, Ot I10 ESSENTIAL (PRIMARY) HYPERTENSION 01/14/2017 ALEX CALDERON MD, Ot K57.30 DVRTCLOS OF LG INT W/O PERFORATION OR AB 01/14/2017 ALEX CALDERON MD, Ot Z08 ENCNTR FOR FOLLOW-UP EXAM AFTER TRTMT FO 01/14/2017 ALEX CALDERON MD Ot Z85.038 PERSONAL HISTORY OF MALIGNANT NEOPLASM O 01/15/2017 ANAT ASHBY MD Ot C18.2 MALIGNANT NEOPLASM OF ASCENDING COLON 01/15/2017 ANAT ASHBY MD, Ot 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 NEOPLASM OF 01/15/2017 ANAT ASHBY MD, Ot D50.9 IRON DEFICIENCY ANEMIA, UNSPECIFIED 01/15/2017 ANAT ASHBY MD Ot I10 ESSENTIAL (PRIMARY) HYPERTENSION 01/15/2017 ANAT ASHBY MD Ot I48.0 PAROXYSMAL ATRIAL FIBRILLATION 01/15/2017 ANAT ASHBY MD Ot Z45.2 ENCOUNTER FOR ADJUSTMENT AND MANAGEMENT 01/15/2017 ANAT ASHBY MD, Ot Z79.899 OTHER LONGTERM (CURRENT) DRUG THERAPY 01/15/2017 ALEX CALDERON MD Ot I10 ESSENTIAL (PRIMARY) HYPERTENSION 01/15/2017 ALEX CALDERON MD Ot K57.30 DVRTCLOS OF LG INT W/O PERFORATION OR AB 01/15/2017 ALEX CALDERON MD Ot Z08 ENCNTR FOR FOLLOW-UP EXAM AFTER TRTMT FO 01/15/2017 ALEX CALDERON MD Ot Z85.038 PERSONAL HISTORY OF MALIGNANT NEOPLASM O 01/18/2017 ANAT ASHBY MD Ot C18.2 MALIGNANT NEOPLASM OF ASCENDING COLON 01/18/2017 ANAT ASHBY MD Ot K76.9 LIVER DISEASE, UNSPECIFIED 01/18/2017 ANAT ASHBY MD Ot Z90.49 ACQUIRED ABSENCE OF OTHER SPECIFIED PART 01/18/2017 ANAT ASHBY MD Ot Z98.890 OTHER SPECIFIED POSTPROCEDURAL STATES 01/18/2017 ANAT ASHBY MD Ot C18.2 MALIGNANT NEOPLASM OF ASCENDING COLON 01/18/2017 ANAT ASHBY MD Ot K76.9 LIVER DISEASE, UNSPECIFIED 01/18/2017 ANTA ASHBY MD Ot Z90.49 ACQUIRED ABSENCE OF OTHER SPECIFIED PART 01/18/2017 ANAT ASHBY MD Ot Z98.890 OTHER SPECIFIED POSTPROCEDURAL STATES 01/23/2017 ALEX CALDERON MD Ot I10 ESSENTIAL (PRIMARY) HYPERTENSION 01/23/2017 ALEX CALDERON MD Ot K57.30 DVRTCLOS OF LG INT W/O PERFORATION OR AB 01/23/2017 ALEX CALDERON MD Ot Z08 ENCNTR FOR FOLLOW-UP EXAM AFTER TRTMT FO 01/23/2017 ALEX CALDERON MD Ot Z85.038 PERSONAL HISTORY OF MALIGNANT NEOPLASM O 01/25/2017 ANAT ASHBY MD Ot C18.2 MALIGNANT NEOPLASM OF ASCENDING COLON 01/25/2017 ANAT ASHBY MD Ot K76.9 LIVER DISEASE, UNSPECIFIED 01/25/2017 ANAT ASHBY MD Ot Z90.49 ACQUIRED ABSENCE OF OTHER SPECIFIED PART 01/25/2017 ANAT ASHBY MD Ot Z98.890 OTHER SPECIFIED POSTPROCEDURAL STATES 01/31/2017 ANAT ASHBY MD Ot C18.2 MALIGNANT NEOPLASM OF ASCENDING COLON 01/31/2017 ANAT ASHBY MD Ot K76.9 LIVER DISEASE, UNSPECIFIED 01/31/2017 ISMA VALDEZ ANAT Jorge Ot Z90.49 ACQUIRED ABSENCE OF OTHER SPECIFIED PART 01/31/2017 ISMA VALDEZ ANAT Jorge Ot Z98.890 OTHER SPECIFIED POSTPROCEDURAL STATES 01/31/2017 ANAT ASHBY MD Ot C18.2 MALIGNANT NEOPLASM OF ASCENDING COLON 01/31/2017 ANAT ASHBY MD Ot K76.9 LIVER DISEASE, UNSPECIFIED 01/31/2017 ISMA VALDEZ ANAT Jorge Ot Z90.49 ACQUIRED ABSENCE OF OTHER SPECIFIED PART 01/31/2017 ISMA VALDEZ ANAT Jorge Ot Z98.890 OTHER SPECIFIED POSTPROCEDURAL STATES 02/01/2017 ANAT ASHBY MD Ot C18.2 MALIGNANT NEOPLASM OF ASCENDING COLON 02/01/2017 ANAT ASHBY MD Ot K76.9 LIVER DISEASE, UNSPECIFIED 02/01/2017 ISMA VALDEZ ANAT Jorge Ot Z90.49 ACQUIRED ABSENCE OF OTHER SPECIFIED PART 02/01/2017 ANAT ASHBY MD Ot Z98.890 OTHER SPECIFIED POSTPROCEDURAL STATES 02/15/2017 MICHEAL HUANG MD Ot C18.2 MALIGNANT NEOPLASM OF ASCENDING COLON 02/15/2017 MICHEAL HUANG MD Ot 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 NEOPLASM OF 02/15/2017 MICHEAL HUANG MD Ot D50.9 IRON DEFICIENCY ANEMIA, UNSPECIFIED 02/15/2017 MICHEAL HUANG MD Ot I10 ESSENTIAL (PRIMARY) HYPERTENSION 02/15/2017 MICHEAL HUANG MD Ot I48.0 PAROXYSMAL ATRIAL FIBRILLATION 02/15/2017 MICHEAL HUANG MD, Ot Z45.2 ENCOUNTER FOR ADJUSTMENT AND MANAGEMENT 02/15/2017 MICHEAL HUANG MD Ot Z79.899 OTHER LONGTERM (CURRENT) DRUG THERAPY 02/19/2017 MICHEAL HUANG MD Ot C18.2 MALIGNANT NEOPLASM OF ASCENDING COLON 02/19/2017 MICHEAL HUANG MD, Ot 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 NEOPLASM OF 02/19/2017 MICHEAL HUANG MD Ot D50.9 IRON DEFICIENCY ANEMIA, UNSPECIFIED 02/19/2017 MICHEAL HUANG MD Ot I10 ESSENTIAL (PRIMARY) HYPERTENSION 02/19/2017 MICHEAL HUANG MD Ot I48.0 PAROXYSMAL ATRIAL FIBRILLATION 02/19/2017 MICHEAL HUANG MD Ot Z45.2 ENCOUNTER FOR ADJUSTMENT AND MANAGEMENT 02/19/2017 MICHEAL HUANG MD Ot Z79.899 OTHER LOOM FIXER (CURRENT) DRUG THERAPY 03/22/2017 MICHEAL HUANG MD Ot C18.2 MALIGNANT NEOPLASM OF ASCENDING COLON 03/22/2017 MICHEAL HUANG MD Ot 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 NEOPLASM OF 03/22/2017 MICHEAL HUANG MD Ot D50.9 IRON DEFICIENCY ANEMIA, UNSPECIFIED 03/22/2017 MICHEAL HUANG MD Ot I10 ESSENTIAL (PRIMARY) HYPERTENSION 03/22/2017 MICHEAL HUANG MD Ot I48.0 PAROXYSMAL ATRIAL FIBRILLATION 03/22/2017 MICHEAL HUANG MD, Ot Z45.2 ENCOUNTER FOR ADJUSTMENT AND MANAGEMENT 03/22/2017 MICHEAL HUANG MD, Ot Z79.899 OTHER LONGTERM (CURRENT) DRUG THERAPY 03/29/2017 MICHEAL HUANG MD, Ot C18.2 MALIGNANT NEOPLASM OF ASCENDING COLON 03/29/2017 MICHEAL HUANG MD, Ot 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 NEOPLASM OF 03/29/2017 MICHEAL HUANG MD Ot D50.9 IRON DEFICIENCY ANEMIA, UNSPECIFIED 03/29/2017 MICHEAL HUANG MD Ot I10 ESSENTIAL (PRIMARY) HYPERTENSION 03/29/2017 MICHEAL HUANG MD Ot I48.0 PAROXYSMAL ATRIAL FIBRILLATION 03/29/2017 MICHEAL HUANG MD Ot Z45.2 ENCOUNTER FOR ADJUSTMENT AND MANAGEMENT 03/29/2017 MICHEAL HUANG MD, Ot Z79.899 OTHER LOOM FIXER (CURRENT) DRUG THERAPY 05/24/2017 JAVIER MUHAMMAD Ot C18.2 MALIGNANT NEOPLASM OF ASCENDING COLON 05/24/2017 JAVIER MUHAMMAD Ot 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 NEOPLASM OF 05/24/2017 JAVIER MUHAMMAD Ot D50.9 IRON DEFICIENCY ANEMIA, UNSPECIFIED 05/24/2017 JAVIER MUHAMMAD Ot I10 ESSENTIAL (PRIMARY) HYPERTENSION 05/24/2017 JAVIER MUHAMMAD Ot I48.0 PAROXYSMAL ATRIAL FIBRILLATION 05/24/2017 JAVIER MUHAMMAD Ot Z23 ENCOUNTER FOR IMMUNIZATION 05/24/2017 JAVIER MUHAMMAD Ot Z45.2 ENCOUNTER FOR ADJUSTMENT AND MANAGEMENT 05/24/2017 JAVIER MUHAMMAD Ot Z79.899 OTHER LONGTERM (CURRENT) DRUG THERAPY 05/24/2017 JB BOBAN N Ot Z90.49 ACQUIRED ABSENCE OF OTHER SPECIFIED PART 06/21/2017 ALMA VALDEZ, HAYDEN Crowder Ot Z12.31 ENCNTR SCREEN MAMMOGRAM FOR MALIGNANT NE 06/30/2017 JB, BOBAN N Ot C18.2 MALIGNANT NEOPLASM OF ASCENDING COLON 06/30/2017 JB BOBAN N Ot 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 NEOPLASM OF 06/30/2017 JB, BOBAN N Ot D50.9 IRON DEFICIENCY ANEMIA, UNSPECIFIED 06/30/2017 JB, BOBAN N Ot I10 ESSENTIAL (PRIMARY) HYPERTENSION 06/30/2017 JB, BOBAN N Ot I48.0 PAROXYSMAL ATRIAL FIBRILLATION 06/30/2017 JB, BOBAN N Ot Z23 ENCOUNTER FOR IMMUNIZATION 06/30/2017 JB, BOBAN N Ot Z45.2 ENCOUNTER FOR ADJUSTMENT AND MANAGEMENT 06/30/2017 JB BOBAN N Ot Z79.899 OTHER LOOM FIXER (CURRENT) DRUG THERAPY 06/30/2017 JB BOBAN N Ot Z90.49 ACQUIRED ABSENCE OF OTHER SPECIFIED PART 07/06/2017 JB, BOBAN N Ot C18.2 MALIGNANT NEOPLASM OF ASCENDING COLON 07/06/2017 JB, BOBAN N Ot 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 NEOPLASM OF 07/06/2017 JB, BOBAN N Ot D50.9 IRON DEFICIENCY ANEMIA, UNSPECIFIED 07/06/2017 JB, BOBAN N Ot I10 ESSENTIAL (PRIMARY) HYPERTENSION 07/06/2017 JB, BOBAN N Ot I48.0 PAROXYSMAL ATRIAL FIBRILLATION 07/06/2017 JB, BOBAN N Ot Z23 ENCOUNTER FOR IMMUNIZATION 07/06/2017 JB, BOBAN N Ot Z45.2 ENCOUNTER FOR ADJUSTMENT AND MANAGEMENT 07/06/2017 JB, BOBAN N Ot Z79.899 OTHER LONGTERM (CURRENT) DRUG THERAPY 07/06/2017 JB, BOBAN N Ot Z90.49 ACQUIRED ABSENCE OF OTHER SPECIFIED PART 07/11/2017 ALMA VALDEZ, HAYDEN Crowder Ot Z12.31 ENCNTR SCREEN MAMMOGRAM FOR MALIGNANT NE 08/22/2017 JB, BOBAN N Ot C18.2 MALIGNANT NEOPLASM OF ASCENDING COLON 08/22/2017 JB, BOBAN N Ot 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 NEOPLASM OF 08/22/2017 JAVIER MUHAMMAD N Ot I10 ESSENTIAL (PRIMARY) HYPERTENSION 08/22/2017 JAVIER MUHAMMAD N Ot I48.0 PAROXYSMAL ATRIAL FIBRILLATION 08/22/2017 JAVIER MUHAMMAD N Ot Z45.2 ENCOUNTER FOR ADJUSTMENT AND MANAGEMENT 08/22/2017 JAVIER MUHAMMAD N Ot Z79.899 OTHER LONGTERM (CURRENT) DRUG THERAPY 08/28/2017 JAVIER MUHAMMAD N Ot C18.2 MALIGNANT NEOPLASM OF ASCENDING COLON 08/28/2017 JAVIER MUHAMMAD N Ot 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 NEOPLASM OF 08/28/2017 JAVIER MUHAMMAD N Ot I10 ESSENTIAL (PRIMARY) HYPERTENSION 08/28/2017 JAVIER MUHAMMAD N Ot I48.0 PAROXYSMAL ATRIAL FIBRILLATION 08/28/2017 JAVIER MUHAMMAD N Ot Z45.2 ENCOUNTER FOR ADJUSTMENT AND MANAGEMENT 08/28/2017 JAVIER MUHAMMAD N Ot Z79.899 OTHER LOOM FIXER (CURRENT) DRUG THERAPY 10/23/2017 ALMA VALDEZ, HAYDEN Crowder Ot Z12.31 ENCNTR SCREEN MAMMOGRAM FOR MALIGNANT NE 10/23/2017 BAIKAREN MAZARIEGOS SOFTWARE ENGINEERING SPECIALIST Ot I48.0 PAROXYSMAL ATRIAL FIBRILLATION 10/23/2017 KAREN JAUREGUI SOFTWARE ENGINEERING SPECIALIST Ot I73.9 PERIPHERAL VASCULAR DISEASE, UNSPECIFIED 10/23/2017 BAIKAREN MAZARIEGOS SOFTWARE ENGINEERING SPECIALIST Ot Z79.01 LOOM FIXER (CURRENT) USE OF ANTICOAGULANT 10/23/2017 HAYDEN MARQUEZ MD Ot Z12.31 ENCNTR SCREEN MAMMOGRAM FOR MALIGNANT NE 10/23/2017 JAVIER MUHAMMAD N Ot C18.2 MALIGNANT NEOPLASM OF ASCENDING COLON 10/23/2017 JAVIER MUHAMMAD N Ot 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 NEOPLASM OF 10/23/2017 JAVIER MUHAMMAD N Ot I10 ESSENTIAL (PRIMARY) HYPERTENSION 10/23/2017 JAVIER MUHAMMAD N Ot I48.0 PAROXYSMAL ATRIAL FIBRILLATION 10/23/2017 JAVIER MUHAMMAD N Ot Z45.2 ENCOUNTER FOR ADJUSTMENT AND MANAGEMENT 10/23/2017 JAVIER MUHAMMAD N Ot Z79.899 OTHER LOOM FIXER (CURRENT) DRUG THERAPY 10/23/2017 JAVIER MUHAMMAD N Ot C18.2 MALIGNANT NEOPLASM OF ASCENDING COLON 10/23/2017 JAVIER MUHAMMAD N Ot 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 NEOPLASM OF 10/23/2017 JAVIER MUHAMMAD N Ot I10 ESSENTIAL (PRIMARY) HYPERTENSION 10/23/2017 JAVIER MUHAMMAD N Ot I48.0 PAROXYSMAL ATRIAL FIBRILLATION 10/23/2017 JAVIER MUHAMMAD N Ot Z45.2 ENCOUNTER FOR ADJUSTMENT AND MANAGEMENT 10/23/2017 JAVIER MUHAMMAD N Ot Z79.899 OTHER LONGTERM (CURRENT) DRUG THERAPY 10/27/2017 JAVIER MUHAMMAD N Ot C18.2 MALIGNANT NEOPLASM OF ASCENDING COLON 10/27/2017 JAVIER MUHAMMAD N Ot 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 NEOPLASM OF 10/27/2017 JAVIER MUHAMMAD N Ot I10 ESSENTIAL (PRIMARY) HYPERTENSION 10/27/2017 JAVIER MUHAMMAD N Ot I48.0 PAROXYSMAL ATRIAL FIBRILLATION 10/27/2017 JAVIER MUHAMMAD N Ot Z45.2 ENCOUNTER FOR ADJUSTMENT AND MANAGEMENT 10/27/2017 JAVIER MUHAMMAD Ot Z79.899 OTHER LOOM FIXER (CURRENT) DRUG THERAPY 10/28/2017 JAVIER MUHAMMAD Ot C18.2 MALIGNANT NEOPLASM OF ASCENDING COLON 10/28/2017 JAVIER MUHAMMAD Ot 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 NEOPLASM OF 10/28/2017 JAVIER MUHAMMAD N Ot I10 ESSENTIAL (PRIMARY) HYPERTENSION 10/28/2017 JAVIER MUHAMMAD N Ot I48.0 PAROXYSMAL ATRIAL FIBRILLATION 10/28/2017 JAVIER MUHAMMAD N Ot Z45.2 ENCOUNTER FOR ADJUSTMENT AND MANAGEMENT 10/28/2017 JAVIER MUHAMMAD Ot Z79.899 OTHER LOOM FIXER (CURRENT) DRUG THERAPY 10/30/2017 BAIMAKAREN L SOFTWARE ENGINEERING SPECIALIST Ot I07.1 RHEUMATIC TRICUSPID INSUFFICIENCY 10/30/2017 BAIMAJANEKAREN L SOFTWARE ENGINEERING SPECIALIST Ot I34.0 NONRHEUMATIC MITRAL (VALVE) INSUFFICIENC 10/30/2017 BAIMA, KAREN L SOFTWARE ENGINEERING SPECIALIST Ot I48.0 PAROXYSMAL ATRIAL FIBRILLATION 10/30/2017 BAIMAJANEKAREN L SOFTWARE ENGINEERING SPECIALIST Ot Z79.01 LONGTERM (CURRENT) USE OF ANTICOAGULANT 11/13/2017 EDWARDMAJANEKAREN L SOFTWARE ENGINEERING SPECIALIST Ot I07.1 RHEUMATIC TRICUSPID INSUFFICIENCY 11/13/2017 BAIMA, KAREN L SOFTWARE ENGINEERING SPECIALIST Ot I34.0 NONRHEUMATIC MITRAL (VALVE) INSUFFICIENC 11/13/2017 BAIMAJANEKAREN L SOFTWARE ENGINEERING SPECIALIST Ot I48.0 PAROXYSMAL ATRIAL FIBRILLATION 11/13/2017 KAREN JAUREGUI SOFTWARE ENGINEERING SPECIALIST Ot Z79.01 LOOM FIXER (CURRENT) USE OF ANTICOAGULANT 11/20/2017 KAREN JAUREGUIP Ot I07.1 RHEUMATIC TRICUSPID INSUFFICIENCY 11/20/2017 KAREN JAUREGUIP Ot I34.0 NONRHEUMATIC MITRAL (VALVE) INSUFFICIENC 11/20/2017 KAREN JAUREGUIP Ot I48.0 PAROXYSMAL ATRIAL FIBRILLATION 11/20/2017 KAREN JAUREGUIP Ot Z79.01 LOOM FIXER (CURRENT) USE OF ANTICOAGULANT Procedures Code Description Performed By Performed On [id number] RESECTION OF RIGHT LARGE INTESTINE, PERC 12/29/2015 [id number] RESECTION OF GALLBLADDER, PERCUTANEOUS E 12/29/2015 [id number] ROBOTIC ASSISTED PROCEDURE OF TRUNK, PER 12/29/2015 Results Test Result Range Methicillin resistant Staphylococcus aureus (MRSA) screening culture - 09:55 Methicillin resistant Staphylococcus aureus (MRSA) screening culture NEG NRG Bacterial urine culture - 03/06/16 10:53 URINE CULTURE RESULTS MORE THAN 3 ISOLATES NRG Encounters ACCT No. Visit Date/Time Discharge Status Pt. Type Provider Facility Loc./Unit Complaint [id number] 12/03/2017 09:55:00 12/03/2017 23:59:59 CLS Outpatient JAVIER MUHAMMAD [facility] ONC [id number] 10/23/2017 09:00:00 10/27/2017 00:01:00 DIS Outpatient JAVIER MUHAMMAD [facility] ONC [id number] 10/24/2017 07:18:00 10/24/2017 23:59:59 CLS Outpatient KAREN JAUREGUIP [facility] CARD I48.0 PAF [id number] 06/17/2017 09:52:00 06/30/2017 00:01:00 DIS Outpatient JAVIER MUHAMMAD [facility] ONC [id number] 06/20/2017 09:48:00 06/20/2017 23:59:59 CLS Outpatient HAYDEN MARQUEZ MD [facility] RAD SCREENING [id number] 03/25/2017 08:42:00 03/29/2017 13:35:00 DIS Outpatient MICHEAL HUANG MD [facility] ONC [id number] 01/02/2017 12:40:00 01/15/2017 00:01:00 DIS Outpatient ANAT ASHBY MD [facility] ONC [id number] 01/14/2017 06:26:00 01/14/2017 09:30:00 DIS Outpatient ALEX CALDERON MD [facility] ENDO HISTORY OF ADENOCARCINOMA [id number] 01/03/2017 05:32:00 01/03/2017 13:30:00 DIS Outpatient ALEX CALDERON MD [facility] PREOP HISTORY OF ADENOCARCINOMA [id number] 12/26/2016 09:51:00 12/26/2016 23:59:59 CLS Outpatient ANAT ASHBY MD [facility] RAD COLON CA [id number] 09/19/2016 14:05:00 10/02/2016 00:01:00 DIS Outpatient ANAT ASHBY MD [facility] ONC [id number] 08/21/2016 12:03:00 08/21/2016 23:59:59 CLS Outpatient KAREN JAUREGUI SOFTWARE ENGINEERING SPECIALIST [facility] RAD CLAUDICATION [id number] 06/27/2016 08:50:00 07/03/2016 00:01:00 DIS Outpatient ANAT ASHBY MD [facility] ONC [id number] 06/19/2016 09:18:00 06/19/2016 23:59:59 CLS Outpatient HAYDEN MARQUEZ MD [facility] RAD SCREENING [id number] 03/28/2016 09:56:00 04/02/2016 10:05:00 DIS Outpatient ANAT ASHBY MD [facility] ONC [id number] 02/20/2016 14:09:00 02/20/2016 23:59:59 CLS Outpatient JOSE L MADISON SOFTWARE ENGINEERING SPECIALIST [facility] ONC [id number] 02/13/2016 08:53:00 02/13/2016 23:59:59 CLS Outpatient JOSE L MADISON SOFTWARE ENGINEERING SPECIALIST [facility] ONC [id number] 02/06/2016 09:19:00 02/06/2016 23:59:59 CLS Outpatient ANAT ASHBY MD Jorge [facility] RAD COLON CANCER [id number] 02/06/2016 10:10:00 02/06/2016 16:30:00 DIS Outpatient ALEX CALDERON MD [facility] COLON CANCER [id number] 02/03/2016 09:24:00 02/03/2016 11:05:00 DIS Outpatient ALEX CALDERON MD [facility] COLON CANCER [id number] 01/31/2016 05:36:00 01/31/2016 12:46:00 DIS Outpatient ALEX CALDERON MD [facility] PREOP COLON CANCER [id number] 12/29/2015 10:37:00 01/06/2016 15:45:00 DIS Inpatient ALEX CALDERON MD [facility] 4TH COLON MASS [id number] 12/27/2015 14:47:00 12/27/2015 23:59:59 CLS Outpatient ALEX CALDERON MD [facility] RAD RUQ PAIN, FATIGUE [id number] 12/26/2015 12:42:00 12/26/2015 16:04:00 DIS Outpatient ALEX CALDERON MD [facility] PREOP COLON MASS [id number] 12/23/2015 09:43:00 12/23/2015 18:35:00 DIS Outpatient HAYDEN MARQUEZ MD [facility] RT COLON MASS [id number] 12/22/2015 12:03:00 12/22/2015 23:59:59 CLS Outpatient HAYDEN MARQUEZ MD [facility] RAD LT FLANK AND GROIN PAIN [id number] 12/22/2015 14:27:00 12/22/2015 15:39:00 DIS Outpatient HAYDEN MARQUEZ MD [facility] PREOP RT COLON MASS [id number] 06/16/2015 09:51:00 06/16/2015 23:59:59 CLS Outpatient HAYDEN MARQUEZ MD [facility] RAD ROUTINE MAMMOGRAM SCREENING [id number] 06/14/2014 10:43:00 06/14/2014 23:59:59 CLS Outpatient HAYDEN MARQUEZ MD [facility] RAD SCREENING [id number] 06/12/2013 07:25:00 06/12/2013 23:59:59 CLS Outpatient HAYDEN MARQUEZ MD [facility] RAD FOLLOW UP [id number] 12/13/2017 09:00:00 PEN Preadmit KVNG VALDEZ, ALEX Coates [facility] SKIN LESION,COLON CANCER [id number] 06/16/2012 13:44:00 Document Registration [id number] 05/20/2012 10:20:00 Document Registration [id number] 05/11/2011 09:11:00 Document Registration
--- NOTE | 2017-12-13 08:10 | Progress Note-Pre Operative ---
Pre-Operative Progress Note H&P Reviewed The H&P was reviewed, patient examined and no changes noted. Date Seen by Provider: Dec 03, 2017 Time Seen by Provider: 10:00 Date H&P Reviewed: Dec 13, 2017 Time H&P Reviewed: 08:10 Pre-Operative Diagnosis: Unused infusaport. Skin lesion-right leg ALEX CALDERON MD Dec 13, 2017 8:10 am
[2017-12-13] MEDS ORDERED: ceFAZolin 2 GM IV Premixed 50 ML IV ONE (08:30)
[2017-12-13] MEDS: LACTATED RINGERS 1,000 ML IV PRN ×2 (08:40→09:55)
[2017-12-13 08:45] VITALS: BP 147/76
[2017-12-13] MEDS ORDERED: BUP/EPI 0.5% 1:200,000 (SENSORCAINE) 30 ML VIAL ONE (09:09)
[2017-12-13] MEDS ORDERED: MIDAZOLAM 2 MG/2 ML (VERSED) VIAL ONE (09:12)
[2017-12-13] MEDS ORDERED: DEXAMETHASONE 10 MG/ML (DECADRON) 1 ML VIAL ONE (09:12)
[2017-12-13] MEDS ORDERED: SEVOFLURANE (ULTANE) 15 ML INHAL SOLN ONE ×3 (09:12→10:03)
[2017-12-13] MEDS ORDERED: LIDOCAINE PF 2% 5 ML (XYLOCAINE) VIAL ONE (09:12)
[2017-12-13] MEDS ORDERED: proPOfol 200 MG/20 ML (DIPRIVAN) VIAL IV ONE (09:12)
[2017-12-13] MEDS ORDERED: ONDANSETRON 4 MG/2 ML (SDV) Z0FRAN ONE (09:12)
[2017-12-13] MEDS ORDERED: fentaNYL INJECTION 100 MCG/2 ML AMP ONE (09:13)
--- NOTE | 2017-12-13 10:12 | Operative Report ---
Operative Report Date of Procedure/Surgery Dec 13, 2017 Surgeon (s) ALEX CALDERON MD Command Post Superintendent (s): n/a Post-Operative Diagnosis Same Procedure Performed 1. Removal of [id number]-m-Kdoc 2. Excision of skin lesion right leg(4 x 2 cm) Description of Procedure Anesthesia Type: General Estimated blood loss (mL): Minimal Specimen(s) collected/removed Skin lesion Description of the Procedure Indication for the procedures: This lady has completed adjuvant chemotherapy following resection of the right colonic carcinoma. After having had a detailed discussion with her oncologist, it was elected to remove her Infuse-a- Port. In addition, she requested excision of a 1.5 cm lesion over the right leg and the same anesthetic. Informed consent was obtained after reviewing the procedures in detail. Description of the procedures: She was placed supine on the operative table and general anesthesia induced. Ancef was administered intravenously as prophylaxis against wound infection 1. Removal of [id number]-y-[id number]: Right infraclavicular fossa was prepared and draped in the usual sterile manner. 0.5 percent Marcaine with epinephrine was infiltrated along the incision preemptively. A secondary incision was made along the previous scar from Pkxpct-h-Sseg removed without risking adequate. Incision was then closed using 3-0 Vicryl for the dermal layer and 4-0 Vicryl for skin, in a subcuticular fashion. Steri-Strips and Band-Aid were applied. 2. Excision of skin lesion right leg: After preparing the area in a sterile fashion, pre-emptive analgesia was established using 0.5 percent Marcaine with epinephrine. An elliptical incision 4 cm in length by 2 cm in width was made and the lesion excised down to the subcutaneous tissue. It was oriented with silk sutures and sent for histologic examination. The defect was closed using a combination of 20 and 3-0 nylon sutures, in an interrupted fashion. A nonadherent dressing was then applied. She tolerated the procedure well, was extubated in the operating room and taken to the recovery room in a stable condition. Findings of the Procedure see op report Allergies and Home Medications Allergies Coded Allergies: tramadol (Verified Allergy, Intermediate, RASH, 01/31/16) Home Medications Apixaban 5 Mg Tablet, 5 MG PO BID, (Reported) Calcium Carbonate/Vitamin D3 1 Each Tablet, 1 TAB PO DAILY, (Reported) Cetirizine HCl 10 Mg Tablet, 10 MG PO DAILY, (Reported) Lutein 20 Mg Tablet, 20 MG PO DAILY, (Reported) Metoprolol Tartrate 50 Mg Tablet, 50 MG PO BID, (Reported) Multivitamin 1 Each Tablet, 1 EACH PO DAILY, (Reported) Patient Home Medication List Home Medication List Reviewed: Yes ALEX CALDERON MD Dec 13, 2017 10:12 am
[2017-12-13] MEDS ORDERED: ACHD5005 PO (10:13)
--- NOTE | 2017-12-13 10:14 | Discharge Inst-Simple/Standard ---
Discharge Inst-Standard Discharge Medications New, Converted or Re-Newed RX: RX on Chart Patient Instructions/Follow Up Plan of Care/Instructions/FU: Dressing over the leg to be replaced with a Band-Aid in 48 hours. Follow-up with my nurse in 2 weeks for suture removal Activity as Tolerated: Yes Discharge Diet: No Restrictions ALEX CALDERON MD Dec 13, 2017 10:14 am
[2017-12-13 11:00] VITALS: BP 144/69
--- NOTE | 2017-12-13 11:06 | Anesthesia-General Post-Op ---
General Patient Condition Mental Status/LOC: Same as Preop Cardiovascular: Satisfactory Nausea/Vomiting: Absent Respiratory: Satisfactory Pain: Controlled Complications: Absent Post Op Complications Complications None Follow Up Care/Instructions Patient Instructions None needed. Anesthesia/Patient Condition Patient Condition Patient is doing well, no complaints, stable vital signs, no apparent adverse anesthesia problems. LINO ROWE DO Dec 13, 2017 11:06
[2017-12-13 11:30] VITALS: BP 139/69
[2017-12-13 12:00] VITALS: BP 136/69
[2017-12-13 12:20] VITALS: BP 136/69
== END 2017-12-13 12:20 | disposition home or self-care (01) ==
LOC: SDC 07:51
PROVIDERS: ATTEND Surgery
DX: L82.1 Other seborrheic keratosis (principal); Z45.2 Encounter for adjustment and management of vascular access device; I48.0 Paroxysmal atrial fibrillation; D50.9 Iron deficiency anemia, unspecified; I73.9 Peripheral vascular disease, unspecified; Z85.038 Personal history of other malignant neoplasm of large intestine; Z79.01 Long term (current) use of anticoagulants; Z79.899 Other long term (current) drug therapy; Z92.21 Personal history of antineoplastic chemotherapy
CPT/HCPCS: 87081; 88305

== ENCOUNTER 2018-03-06 09:42 | Outpatient (RCR) | payer MEDICARE, OTHER ==
[~2018-03-06 09:42] MED LIST changes: -OXYC-197 PO; +OXYC1TAB87 PO
[2018-03-06 09:54] LABS: BASOPHILS % (AUTO) 1 % (0-10); EOSINOPHILS # (AUTO) 0.1 10^3/uL (0.0-0.3); EOSINOPHILS % (AUTO) 1 % (0-10); HEMATOCRIT 44 % (35-52); HEMOGLOBIN 14.9 G/DL (11.5-16.0); LYMPHOCYTES # (AUTO) 2.1 X 10^3 (1.0-4.0); LYMPHOCYTES % (AUTO) 33 % (12-44); MEAN CORPUSCULAR HEMOGLOBIN 30 PG (25-34); MEAN CORPUSCULAR HGB CONC 34 G/DL (32-36); MEAN CORPUSCULAR VOLUME 90 FL (80-99); MEAN PLATELET VOLUME 11.7 FL (7.4-10.4); MONOCYTES # (AUTO) 0.6 X 10^3 (0.0-1.0); MONOCYTES % (AUTO) 10 % (0-12); NEUTROPHILS # (AUTO) 3.6 X 10^3 (1.8-7.8); NEUTROPHILS % (AUTO) 55 % (42-75); PLATELET COUNT 190 10^3/uL (130-400); RED CELL DISTRIBUTION WIDTH 14.8 % (10.0-14.5); WHITE BLOOD COUNT 6.5 10^3/uL (4.3-11.0)
[2018-03-06 10:16] LABS: ALBUMIN 4.1 GM/DL (3.2-4.5); BILIRUBIN,TOTAL 0.5 MG/DL (0.1-1.0); CALCIUM 9.8 MG/DL (8.5-10.1); CREATININE SERUM 1.06 MG/DL (0.60-1.30); POTASSIUM 3.9 MMOL/L (3.6-5.0); TOTAL PROTEIN 7.3 GM/DL (6.4-8.2)
== END 2018-03-30 | disposition home or self-care (01) ==
LOC: ONC 09:42
PROVIDERS: ATTEND Internal Medicine Hematology & Oncology
DX: C18.2 Malignant neoplasm of ascending colon (principal); C77.2 Secondary and unspecified malignant neoplasm of intra-abdominal lymph nodes; I10 Essential (primary) hypertension; I48.0 Paroxysmal atrial fibrillation; Z79.899 Other long term (current) drug therapy
CPT/HCPCS: 36415; 80053; 82378; 85025; 99213

== ENCOUNTER → 2018-06-26 | Outpatient (CLI) | payer MEDICARE, OTHER ==
--- NOTE | 2018-06-26 12:38 | Diagnostic Imaging Report ---
INDICATION: Routine screening. COMPARISON: Comparison is made with prior mammograms from 06/20/2017 and 06/19/2016. TECHNIQUE: 2D and 3D bilateral screening mammography was performed with computer-aided detection (CAD) system. FINDINGS: Scattered fibroglandular densities are identified bilaterally. Scattered benign calcifications are noted bilaterally. Biopsy clip in the medial left breast is again seen. No new mass or malignant-appearing microcalcifications are seen. The axillae are unremarkable. IMPRESSION: No mammographic features suspicious for malignancy are identified. ACR BI-RADS Category 2: Benign findings. Result letter will be mailed to the patient. Note: At least 10% of breast cancer is not imaged by mammography. Dictated by: Dictated on workstation # [id number]
== END ==
LOC: RAD 07:09
PROVIDERS: ATTEND Internal Medicine
DX: Z12.31 Encounter for screening mammogram for malignant neoplasm of breast (principal)
CPT/HCPCS: 77067

== ENCOUNTER 2018-09-03 08:36 | Outpatient (RCR) | payer MEDICARE, OTHER ==
[2018-06-09 09:46] LABS: BASOPHILS % (AUTO) 0 % (0-10); EOSINOPHILS # (AUTO) 0.1 10^3/uL (0.0-0.3); EOSINOPHILS % (AUTO) 1 % (0-10); HEMATOCRIT 46 % (35-52); HEMOGLOBIN 15.3 G/DL (11.5-16.0); LYMPHOCYTES # (AUTO) 2.1 X 10^3 (1.0-4.0); LYMPHOCYTES % (AUTO) 28 % (12-44); MEAN CORPUSCULAR HEMOGLOBIN 30 PG (25-34); MEAN CORPUSCULAR HGB CONC 33 G/DL (32-36); MEAN CORPUSCULAR VOLUME 91 FL (80-99); MEAN PLATELET VOLUME 11.5 FL (7.4-10.4); MONOCYTES # (AUTO) 0.8 X 10^3 (0.0-1.0); MONOCYTES % (AUTO) 11 % (0-12); NEUTROPHILS # (AUTO) 4.7 X 10^3 (1.8-7.8); NEUTROPHILS % (AUTO) 60 % (42-75); PLATELET COUNT 194 10^3/uL (130-400); RED CELL DISTRIBUTION WIDTH 14.9 % (10.0-14.5); WHITE BLOOD COUNT 7.8 10^3/uL (4.3-11.0)
[2018-06-09 10:12] LABS: ALBUMIN 4.1 GM/DL (3.2-4.5); BILIRUBIN,TOTAL 0.6 MG/DL (0.1-1.0); CALCIUM 9.8 MG/DL (8.5-10.1); CREATININE SERUM 1.2 MG/DL (0.60-1.30); POTASSIUM 4.2 MMOL/L (3.6-5.0); TOTAL PROTEIN 7.5 GM/DL (6.4-8.2)
[2018-09-03 08:48] LABS: BASOPHILS # (AUTO) 0.1 10^3/uL (0.0-0.1); BASOPHILS % (AUTO) 1 % (0-10); EOSINOPHILS # (AUTO) 0.1 10^3/uL (0.0-0.3); EOSINOPHILS % (AUTO) 2 % (0-10); HEMATOCRIT 44 % (35-52); HEMOGLOBIN 14.3 G/DL (11.5-16.0); LYMPHOCYTES # (AUTO) 1.8 X 10^3 (1.0-4.0); LYMPHOCYTES % (AUTO) 29 % (12-44); MEAN CORPUSCULAR HEMOGLOBIN 30 PG (25-34); MEAN CORPUSCULAR HGB CONC 33 G/DL (32-36); MEAN CORPUSCULAR VOLUME 91 FL (80-99); MEAN PLATELET VOLUME 11.8 FL (7.4-10.4); MONOCYTES # (AUTO) 0.5 X 10^3 (0.0-1.0); MONOCYTES % (AUTO) 8 % (0-12); NEUTROPHILS # (AUTO) 3.7 X 10^3 (1.8-7.8); NEUTROPHILS % (AUTO) 60 % (42-75); PLATELET COUNT 190 10^3/uL (130-400); RED CELL DISTRIBUTION WIDTH 14.9 % (10.0-14.5); WHITE BLOOD COUNT 6.2 10^3/uL (4.3-11.0)
[2018-09-03 09:04] LABS: ALBUMIN 4.1 GM/DL (3.2-4.5); BILIRUBIN,TOTAL 0.6 MG/DL (0.1-1.0); CALCIUM 9.8 MG/DL (8.5-10.1); CREATININE SERUM 1.01 MG/DL (0.60-1.30); TOTAL PROTEIN 6.9 GM/DL (6.4-8.2)
== END 2018-09-07 | disposition home or self-care (01) ==
LOC: ONC 08:36
PROVIDERS: ATTEND Internal Medicine Hematology & Oncology
DX: C18.2 Malignant neoplasm of ascending colon (principal); C77.2 Secondary and unspecified malignant neoplasm of intra-abdominal lymph nodes; I10 Essential (primary) hypertension; I48.0 Paroxysmal atrial fibrillation; Z79.899 Other long term (current) drug therapy
CPT/HCPCS: 36415; 80053; 82378; 85025; 99213

== ENCOUNTER 2018-12-03 09:33 | Outpatient (RCR) | payer MEDICARE, OTHER ==
[2018-12-03 09:51] LABS: BASOPHILS % (AUTO) 1 % (0-10); EOSINOPHILS # (AUTO) 0.1 10^3/uL (0.0-0.3); EOSINOPHILS % (AUTO) 2 % (0-10); HEMATOCRIT 43 % (35-52); HEMOGLOBIN 14.3 G/DL (11.5-16.0); LYMPHOCYTES # (AUTO) 1.9 X 10^3 (1.0-4.0); LYMPHOCYTES % (AUTO) 31 % (12-44); MEAN CORPUSCULAR HEMOGLOBIN 30 PG (25-34); MEAN CORPUSCULAR HGB CONC 33 G/DL (32-36); MEAN CORPUSCULAR VOLUME 91 FL (80-99); MEAN PLATELET VOLUME 11.9 FL (7.4-10.4); MONOCYTES # (AUTO) 0.6 X 10^3 (0.0-1.0); MONOCYTES % (AUTO) 10 % (0-12); NEUTROPHILS # (AUTO) 3.5 X 10^3 (1.8-7.8); NEUTROPHILS % (AUTO) 57 % (42-75); PLATELET COUNT 176 10^3/uL (130-400); RED CELL DISTRIBUTION WIDTH 14.2 % (10.0-14.5); WHITE BLOOD COUNT 6.2 10^3/uL (4.3-11.0)
[2018-12-03 10:16] LABS: BILIRUBIN,TOTAL 0.4 MG/DL (0.1-1.0); CALCIUM 9.7 MG/DL (8.5-10.1); CREATININE SERUM 1.03 MG/DL (0.60-1.30); POTASSIUM 4.1 MMOL/L (3.6-5.0); TOTAL PROTEIN 6.9 GM/DL (6.4-8.2)
== END 2019-03-03 | disposition home or self-care (01) ==
LOC: ONC 09:33
PROVIDERS: ATTEND Internal Medicine Hematology & Oncology
DX: C18.2 Malignant neoplasm of ascending colon (principal); C77.2 Secondary and unspecified malignant neoplasm of intra-abdominal lymph nodes; I10 Essential (primary) hypertension; I48.0 Paroxysmal atrial fibrillation; Z79.899 Other long term (current) drug therapy
CPT/HCPCS: 36415; 80053; 82378; 85025; 99213

== ENCOUNTER 2019-05-20 09:40 | Outpatient (RCR) | payer MEDICARE, OTHER ==
[~2019-05-20 09:40] MED LIST changes: -TRAM50TA2 PO; +TRM50T PO
[2019-05-20 09:51] LABS: BASOPHILS % (AUTO) 1 % (0-10); EOSINOPHILS # (AUTO) 0.1 10^3/uL (0.0-0.3); EOSINOPHILS % (AUTO) 1 % (0-10); HEMATOCRIT 45 % (35-52); HEMOGLOBIN 15.1 G/DL (11.5-16.0); LYMPHOCYTES # (AUTO) 2.4 X 10^3 (1.0-4.0); LYMPHOCYTES % (AUTO) 33 % (12-44); MEAN CORPUSCULAR HEMOGLOBIN 30 PG (25-34); MEAN CORPUSCULAR HGB CONC 33 G/DL (32-36); MEAN CORPUSCULAR VOLUME 90 FL (80-99); MONOCYTES # (AUTO) 0.7 X 10^3 (0.0-1.0); MONOCYTES % (AUTO) 10 % (0-12); NEUTROPHILS # (AUTO) 4.1 X 10^3 (1.8-7.8); NEUTROPHILS % (AUTO) 56 % (42-75); PLATELET COUNT 166 10^3/uL (130-400); RED CELL DISTRIBUTION WIDTH 14.9 % (10.0-14.5); WHITE BLOOD COUNT 7.3 10^3/uL (4.3-11.0)
[2019-05-20 10:21] LABS: ALBUMIN 4.2 GM/DL (3.2-4.5); BILIRUBIN,TOTAL 0.6 MG/DL (0.1-1.0); CREATININE SERUM 1.1 MG/DL (0.60-1.30); TOTAL PROTEIN 7.4 GM/DL (6.4-8.2)
== END 2019-08-18 | disposition home or self-care (01) ==
LOC: ONC 09:40
PROVIDERS: ATTEND Internal Medicine Hematology & Oncology
DX: C18.2 Malignant neoplasm of ascending colon (principal); C77.2 Secondary and unspecified malignant neoplasm of intra-abdominal lymph nodes; I48.91 Unspecified atrial fibrillation; N18.3 Chronic kidney disease, stage 3 (moderate); Z79.899 Other long term (current) drug therapy; Z92.21 Personal history of antineoplastic chemotherapy; Z90.49 Acquired absence of other specified parts of digestive tract
CPT/HCPCS: 36415; 80053; 82378; 85025; 99213

== ENCOUNTER → 2019-06-29 | Outpatient (CLI) | payer MEDICARE, OTHER ==
[~2019-06-29] MED LIST changes: +TRAM50TA2 PO; -TRM50T PO
--- NOTE | 2019-06-29 17:54 | Diagnostic Imaging Report ---
INDICATION: Routine screening. COMPARISON: Comparison is made with prior mammograms from 06/26/2018 and 06/20/2017. TECHNIQUE: 2-D and 3-D bilateral screening mammography was performed. The current study was also evaluated with a Computer Aided Detection (CAD) system. 3-D tomosynthesis was also performed and reviewed. FINDINGS: Scattered fibroglandular densities are identified bilaterally. Scattered benign calcifications are again noted. Biopsy clips in the medial left breast are again noted. No new mass or malignant-appearing microcalcifications are seen. Axillae are unremarkable. IMPRESSION: No mammographic features suspicious for malignancy are identified. ACR BI-RADS Category 2: Benign findings. Result letter will be mailed to the patient. Note: At least 10% of breast cancer is not imaged by mammography. Dictated by: Dictated on workstation # [id number]
== END ==
LOC: RAD 10:44
PROVIDERS: ATTEND Internal Medicine
DX: Z12.31 Encounter for screening mammogram for malignant neoplasm of breast (principal)
CPT/HCPCS: 77067

== ENCOUNTER 2019-11-11 09:36 | Outpatient (RCR) | payer MEDICARE, OTHER ==
[~2019-11-11 09:36] MED LIST changes: +MULT-567 PO; -MULT1TAB69 PO; -TRAM50TA2 PO; +TRM50T PO
[2019-11-11 10:07] LABS: BASOPHILS % (AUTO) 1 % (0-10); EOSINOPHILS # (AUTO) 0.1 10^3/uL (0.0-0.3); EOSINOPHILS % (AUTO) 1 % (0-10); HEMATOCRIT 45 % (35-52); HEMOGLOBIN 14.7 G/DL (11.5-16.0); LYMPHOCYTES % (AUTO) 32 % (12-44); MEAN CORPUSCULAR HEMOGLOBIN 30 PG (25-34); MEAN CORPUSCULAR HGB CONC 33 G/DL (32-36); MEAN CORPUSCULAR VOLUME 91 FL (80-99); MEAN PLATELET VOLUME 11.8 FL (7.4-10.4); MONOCYTES # (AUTO) 0.7 X 10^3 (0.0-1.0); MONOCYTES % (AUTO) 10 % (0-12); NEUTROPHILS # (AUTO) 3.5 X 10^3 (1.8-7.8); NEUTROPHILS % (AUTO) 56 % (42-75); PLATELET COUNT 155 10^3/uL (130-400); RED CELL DISTRIBUTION WIDTH 14.7 % (10.0-14.5); WHITE BLOOD COUNT 6.3 10^3/uL (4.3-11.0)
[2019-11-11 10:26] LABS: ALBUMIN 3.8 GM/DL (3.2-4.5); BILIRUBIN,TOTAL 0.5 MG/DL (0.1-1.0); CALCIUM 9.3 MG/DL (8.5-10.1); CREATININE SERUM 1.01 MG/DL (0.60-1.30); POTASSIUM 4.1 MMOL/L (3.6-5.0); TOTAL PROTEIN 6.8 GM/DL (6.4-8.2)
== END 2020-02-09 | disposition home or self-care (01) ==
LOC: ONC 09:36
PROVIDERS: ATTEND Internal Medicine Hematology & Oncology
DX: C18.2 Malignant neoplasm of ascending colon (principal); I48.0 Paroxysmal atrial fibrillation; N18.3 Chronic kidney disease, stage 3 (moderate); G62.0 Drug-induced polyneuropathy; Z92.21 Personal history of antineoplastic chemotherapy; Z90.49 Acquired absence of other specified parts of digestive tract; Z79.01 Long term (current) use of anticoagulants
CPT/HCPCS: 80053; 82378; 85025; G0463; 99213

== ENCOUNTER 2020-02-04 05:40 | Outpatient (RCR) | payer MEDICARE, OTHER | END 2020-02-04 16:00 | disposition home or self-care (01) | LOC: PREOP 05:40 | PROVIDERS: ATTEND Internal Medicine | DX: Z01.818 Encounter for other preprocedural examination (principal) ==

== ENCOUNTER 2020-02-12 07:04 | Day surgery (SDC) | payer MEDICARE, OTHER ==
--- NOTE | 2020-02-11 14:48 | HISTORY AND PHYSICAL ---
DATE OF SERVICE: COLONOSCOPY HISTORY AND PHYSICAL HISTORY OF PRESENT ILLNESS: The patient is a 74-year-old white female seen for followup of paroxysmal atrial fibrillation, hypertension, colon cancer. It had been three years since her last colonoscopy, so she is being set up for repeat surveillance colonoscopy. She was initially diagnosed with adenocarcinoma of the colon, undergoing right hemicolectomy in 11/2015. She completed adjuvant chemotherapy with FOLFOX regimen x12 and oxaliplatin, which was dropped after eight cycles due to peripheral neuropathy. She reports that she has been feeling well. She has had no bowel habit changes, noted no bright red blood per rectum or melena and has had no abdominal pain. She denies chest discomfort, heart racing, palpitation, orthopnea, PND or pedal edema. She was concerned about a lesion on her back that sometimes itches, especially in the winter time. PHYSICAL EXAMINATION: GENERAL: Reveals a white female appeared to be in no acute distress. VITAL SIGNS: Blood pressure 136/80. Weight stable at 179.8. CHEST: Clear to auscultation. CARDIOVASCULAR: Revealed a regular rate and rhythm without significant murmur, S3 or S4. ABDOMEN: Soft, supple without mass, organomegaly or tenderness. EXTREMITIES: Reveal no cyanosis, clubbing or edema. SKIN: Evaluation did reveal nonpigmented seborrheic keratosis on her back that she was reassured about, no suspicious nevi were noted. ASSESSMENT AND PLAN: 1. The patient is set up for surveillance colonoscopy on 02/12/2020 secondary to history of colon cancer as noted above. 2. Seborrheic keratosis on the back. The patient reassured. 3. Paroxysmal atrial fibrillation, symptomatic recurrences. Job ID: [id number] DocumentID: [id number] Dictated Date: 01/14/2020 16:57:28 Power Tong Operator Date: 01/14/2020 17:52:16 Dictated By: HAYDEN MARQUEZ MD
[~2020-02-12] VITALS: Ht 165.1 cm; Wt 396.4 kg
[2020-02-12] VITALS (10 sets, daily range): BP systolic 114–168; BP diastolic 55–91
[2020-02-12] MEDS ORDERED: D5 LR IV SOLUTION 1,000 ML IV STA (07:05)
[2020-02-12] MEDS ORDERED: D5 LR IV SOLUTION 1,000 ML IV ONE (07:06)
[2020-02-12] MEDS ORDERED: fentaNYL INJECTION 100 MCG/2 ML AMP IVP ONE (07:15)
[2020-02-12] MEDS ORDERED: LIDOCAINE JELLY 2% 6 ML SYRINGE MM PRN (07:15)
[2020-02-12] MEDS ORDERED: MIDAZOLAM 5 MG/5 ML (VERSED) VIAL IV PRN (07:15)
[2020-02-12] MEDS ORDERED: fentaNYL INJECTION 100 MCG/2 ML AMP ONE (07:47)
[2020-02-12] MEDS ORDERED: MIDAZOLAM 5 MG/5 ML (VERSED) VIAL ONE (07:47)
[2020-02-12] MEDS ORDERED: LIDOCAINE JELLY 2% 6 ML SYRINGE ONE (07:47)
--- NOTE | 2020-02-12 07:58 | Pre-Op Note & Conscious Sedat ---
Pre-Operative Progress Note H&P Reviewed The H&P was reviewed, patient examined and no changes noted. Date H&P Reviewed: Feb 12, 2020 Time H&P Reviewed: 07:40 Conscious Sedation Pre-Proced ASA Score 2 For ASA 3 and 4: Consider anesthesia and medical clearance. Also, for patients with a history of failed moderate sedation consider anesthesia. Airway Lungs Heart ASA score ASA 1: a normal healthy patient ASA 2: a patient with a mild systemic disease (mid diabetes, controlled hypertension, obesity ASA 3: a patient with a severe systemic disease that limits activity (angina, COPD, prior Myocardial infarction) ASA 4: a patient with an incapacitating disease that is a constant threat to life (CHF, renal failure) ASA 5: a moribund patient not expected to survive 24 hrs. (ruptured aneurysm) ASA 6: a declared brain- patient whose organs are being harvested. For emergent operations, add the letter E after the classification Mallampati Classification Grade 2 Sedation Plan Analgesia, Amnesia, Plan communicated to team members, Discussed options with patient/fam, Discussed risks with patient/fam The patient is an appropriate candidate to undergo the planned procedure, sedation, and anesthesia. The patient immediately re-assessed prior to indication. HAYDEN MARQUEZ MD Feb 12, 2020 07:58
--- NOTE | 2020-02-12 18:39 | OPERATIVE REPORT ---
DATE OF SERVICE: COLONOSCOPY SUMMARY INDICATION FOR THE PROCEDURE: Surveillance colonoscopy, history of colon cancer, status post right hemicolectomy. DESCRIPTION OF PROCEDURE: The patient was placed in the left lateral decubitus position. Prior to undergoing colonoscopy, digital rectal evaluation was performed. Anal sphincter tone was normal and the perianal reflexes intact. No abnormalities were noted on digital inspection of anal canal or distal rectal vault. The colonoscope was then inserted into the rectum and under direct visualization advanced to the ileocolonic anastomosis. Careful inspection was made as colonoscope was withdrawn. Quality of prep was good. FINDINGS: There was no evidence for internal or external hemorrhoids. The rectum was unremarkable. Moderate number of small to medium size sigmoid diverticulum were present without evidence for diverticulitis. No other sigmoid colonic abnormalities were appreciated. The descending colon, transverse colon and ascending colon as well as ileocolonic anastomosis were unremarkable. ASSESSMENT: Moderate diverticular disease confined to the sigmoid colon was present with a normal ileocolonic anastomosis involving the ascending colon with no endoscopic evidence for tumor recurrence. Job ID: [id number] DocumentID: [id number] Dictated Date: 02/12/2020 12:22:31 Perfect Binder Feeder Offbearer Date: 02/12/2020 18:38:26 Dictated By: HAYDEN MARQUEZ MD
== END 2020-02-12 09:00 | disposition home or self-care (01) ==
LOC: ENDO 07:04
PROVIDERS: ATTEND Internal Medicine
DX: Z12.11 Encounter for screening for malignant neoplasm of colon (principal); K57.30 Diverticulosis of large intestine without perforation or abscess without bleeding; Z85.038 Personal history of other malignant neoplasm of large intestine; I48.0 Paroxysmal atrial fibrillation; I10 Essential (primary) hypertension; L82.1 Other seborrheic keratosis; Z92.21 Personal history of antineoplastic chemotherapy

== ENCOUNTER 2020-05-03 09:40 | Outpatient (RCR) | payer MEDICARE, OTHER ==
[2020-05-03 09:55] LABS: BASOPHILS % (AUTO) 1 % (0-10); EOSINOPHILS # (AUTO) 0.1 10^3/uL (0.0-0.3); EOSINOPHILS % (AUTO) 2 % (0-10); HEMATOCRIT 44 % (35-52); HEMOGLOBIN 14.3 g/dL (11.5-16.0); LYMPHOCYTES # (AUTO) 2.3 10^3/uL (1.0-4.0); LYMPHOCYTES % (AUTO) 39 % (12-44); MEAN CORPUSCULAR HEMOGLOBIN 30 pg (25-34); MEAN CORPUSCULAR HGB CONC 32 g/dL (32-36); MEAN CORPUSCULAR VOLUME 91 fL (80-99); MEAN PLATELET VOLUME 11.4 fL (9.0-12.2); MONOCYTES # (AUTO) 0.6 10^3/uL (0.0-1.0); MONOCYTES % (AUTO) 10 % (0-12); NEUTROPHILS # (AUTO) 2.8 10^3/uL (1.8-7.8); NEUTROPHILS % (AUTO) 48 % (42-75); PLATELET COUNT 166 10^3/uL (130-400); WHITE BLOOD COUNT 5.8 10^3/uL (4.3-11.0)
[2020-05-03 10:13] LABS: ALBUMIN 3.8 GM/DL (3.2-4.5); BILIRUBIN,TOTAL 0.6 MG/DL (0.1-1.0); CALCIUM 8.9 MG/DL (8.5-10.1); CREATININE SERUM 1.08 MG/DL (0.60-1.30); POTASSIUM 3.6 MMOL/L (3.6-5.0); TOTAL PROTEIN 6.7 GM/DL (6.4-8.2)
== END 2020-08-01 | disposition home or self-care (01) ==
LOC: ONC 09:40
PROVIDERS: ATTEND Internal Medicine Hematology & Oncology
DX: C18.2 Malignant neoplasm of ascending colon (principal); Z92.21 Personal history of antineoplastic chemotherapy
CPT/HCPCS: 80053; 82378; 85025; G0463; 99213

== ENCOUNTER → 2020-07-06 | Outpatient (CLI) | payer MEDICARE, OTHER ==
--- NOTE | 2020-07-06 15:24 | Diagnostic Imaging Report ---
INDICATION: Routine screening. Comparison is made with prior mammogram 06/29/2019 and 06/26/2018. 2-D and 3-D bilateral screening mammography was performed with CAD. Scattered fibroglandular densities are identified bilaterally. Biopsy clips in the medial left breast are again noted. There are benign calcifications bilaterally. No mass or malignant appearing microcalcifications are seen. Axillae are unremarkable. IMPRESSION: BI-RADS Category 2 No mammographic features suspicious for malignancy are identified. ACR BI-RADS Category 2: Benign findings. Result letter will be mailed to the patient. Note: At least 10% of breast cancer is not imaged by mammography. Dictated by: Dictated on workstation # [id number]
== END ==
LOC: RAD 10:01
PROVIDERS: ATTEND Internal Medicine
DX: Z12.31 Encounter for screening mammogram for malignant neoplasm of breast (principal); Z98.890 Other specified postprocedural states
CPT/HCPCS: 77063; 77067

== ENCOUNTER 2020-10-31 09:32 | Outpatient (RCR) | payer MEDICARE, OTHER ==
[2020-10-31 10:09] LABS: BASOPHILS # (AUTO) 0.1 10^3/uL (0.0-0.1); BASOPHILS % (AUTO) 1 % (0-10); EOSINOPHILS # (AUTO) 0.1 10^3/uL (0.0-0.3); EOSINOPHILS % (AUTO) 1 % (0-10); HEMATOCRIT 46 % (35-52); HEMOGLOBIN 14.8 g/dL (11.5-16.0); LYMPHOCYTES # (AUTO) 2.3 10^3/uL (1.0-4.0); LYMPHOCYTES % (AUTO) 42 % (12-44); MEAN CORPUSCULAR HEMOGLOBIN 30 pg (25-34); MEAN CORPUSCULAR HGB CONC 32 g/dL (32-36); MEAN CORPUSCULAR VOLUME 93 fL (80-99); MEAN PLATELET VOLUME 11.6 fL (9.0-12.2); MONOCYTES # (AUTO) 0.5 10^3/uL (0.0-1.0); MONOCYTES % (AUTO) 8 % (0-12); NEUTROPHILS # (AUTO) 2.6 10^3/uL (1.8-7.8); NEUTROPHILS % (AUTO) 48 % (42-75); PLATELET COUNT 156 10^3/uL (130-400); WHITE BLOOD COUNT 5.5 10^3/uL (4.3-11.0)
[2020-10-31 10:30] LABS: ALBUMIN 3.8 GM/DL (3.2-4.5); BILIRUBIN,TOTAL 0.4 MG/DL (0.1-1.0); CALCIUM 8.9 MG/DL (8.5-10.1); CREATININE SERUM 1.05 MG/DL (0.60-1.30); TOTAL PROTEIN 6.9 GM/DL (6.4-8.2)
== END 2021-01-29 | disposition home or self-care (01) ==
LOC: ONC 09:32
PROVIDERS: ATTEND Internal Medicine Hematology & Oncology
DX: Z08 Encounter for follow-up examination after completed treatment for malignant neoplasm (principal); Z85.038 Personal history of other malignant neoplasm of large intestine; K57.90 Diverticulosis of intestine, part unspecified, without perforation or abscess without bleeding; I48.0 Paroxysmal atrial fibrillation; Z90.49 Acquired absence of other specified parts of digestive tract; Z92.21 Personal history of antineoplastic chemotherapy; Z79.01 Long term (current) use of anticoagulants
CPT/HCPCS: 80053; 82378; 85025; G0463; 99213

== ENCOUNTER 2021-05-08 13:47 | Outpatient (RCR) | payer MEDICARE, OTHER ==
[~2021-05-08 13:47] MED LIST changes: +BISO-2 PO; -BISO1TAB3 PO
[2021-05-08 13:50] LABS: BASOPHILS # (AUTO) 0.1 10^3/uL (0.0-0.1); BASOPHILS % (AUTO) 1 % (0-10); EOSINOPHILS # (AUTO) 0.2 10^3/uL (0.0-0.3); EOSINOPHILS % (AUTO) 3 % (0-10); HEMATOCRIT 47 % (35-52); HEMOGLOBIN 15.4 g/dL (11.5-16.0); LYMPHOCYTES # (AUTO) 3.1 10^3/uL (1.0-4.0); LYMPHOCYTES % (AUTO) 40 % (12-44); MEAN CORPUSCULAR HEMOGLOBIN 29 pg (25-34); MEAN CORPUSCULAR HGB CONC 33 g/dL (32-36); MEAN CORPUSCULAR VOLUME 90 fL (80-99); MEAN PLATELET VOLUME 11.8 fL (9.0-12.2); MONOCYTES # (AUTO) 0.8 10^3/uL (0.0-1.0); MONOCYTES % (AUTO) 10 % (0-12); NEUTROPHILS # (AUTO) 3.6 10^3/uL (1.8-7.8); NEUTROPHILS % (AUTO) 47 % (42-75); PLATELET COUNT 195 10^3/uL (130-400); WHITE BLOOD COUNT 7.7 10^3/uL (4.3-11.0)
[2021-05-08 14:08] LABS: ALBUMIN 3.9 GM/DL (3.2-4.5); BILIRUBIN,TOTAL 0.4 MG/DL (0.1-1.0); CALCIUM 9.5 MG/DL (8.5-10.1); CREATININE SERUM 1.08 MG/DL (0.60-1.30); POTASSIUM 4.1 MMOL/L (3.6-5.0); TOTAL PROTEIN 7.1 GM/DL (6.4-8.2)
== END 2021-06-30 | disposition home or self-care (01) ==
LOC: ONC 13:47
PROVIDERS: ATTEND Internal Medicine Hematology & Oncology
DX: C18.2 Malignant neoplasm of ascending colon (principal); I48.0 Paroxysmal atrial fibrillation; D50.9 Iron deficiency anemia, unspecified; Z90.49 Acquired absence of other specified parts of digestive tract; Z92.21 Personal history of antineoplastic chemotherapy; Z79.01 Long term (current) use of anticoagulants
CPT/HCPCS: 80053; 82378; 85025; G0463; 99213

== ENCOUNTER → 2021-07-21 | Outpatient (CLI) | payer MEDICARE, OTHER ==
--- NOTE | 2021-07-21 11:41 | Diagnostic Imaging Report ---
INDICATION: Routine screening. COMPARISON is made with prior mammograms from 07/06/2020 and 06/29/2019. 2-D and 3-D bilateral screening mammography was performed with CAD. Scattered fibroglandular densities are identified bilaterally. There are occasional benign calcifications. There are marker clips in the medial left breast. No mass or malignant-appearing microcalcifications are seen. Axillae are unremarkable. IMPRESSION: BI-RADS Category 2 No mammographic features suspicious for malignancy are identified. ACR BI-RADS Category 2: Benign findings. Result letter will be mailed to the patient. Note: At least 10% of breast cancer is not imaged by mammography. Dictated by: Dictated on workstation # [id number]
== END ==
LOC: RAD 09:45
PROVIDERS: ATTEND Internal Medicine
DX: Z12.31 Encounter for screening mammogram for malignant neoplasm of breast (principal)
CPT/HCPCS: 77063; 77067

== ENCOUNTER → 2022-07-23 | Outpatient (CLI) | payer MEDICARE, OTHER ==
--- NOTE | 2022-07-23 10:37 | Diagnostic Imaging Report ---
INDICATION: Routine screening. COMPARISON: 07/21/2021 and 07/06/2020. TECHNIQUE: 2D and 3D bilateral screening mammography was performed with CAD. FINDINGS: Scattered fibroglandular densities are identified bilaterally. Biopsy marker clips in the medial left breast are again noted. There are occasional benign calcifications bilaterally. No spiculated mass or malignant-appearing microcalcifications are seen. The axillae are unremarkable. IMPRESSION: No mammographic features suspicious for malignancy are identified. ACR BI-RADS Category 2: Benign findings. Result letter will be mailed to the patient. Note: At least 10% of breast cancer is not imaged by mammography. Dictated by: Dictated on workstation # [id number]
== END ==
LOC: RAD 07:38
PROVIDERS: ATTEND Internal Medicine
DX: Z12.31 Encounter for screening mammogram for malignant neoplasm of breast (principal)
CPT/HCPCS: 77063; 77067